=== PATIENT | female | born 1990 | race Caucasian/White ===

== ENCOUNTER 2016-12-10 01:38 | Emergency (ER) | payer SELFPAY ==
[2016-12-10 01:50] VITALS: RESP 18
--- NOTE | 2016-12-10 02:40 | ED ---
Abdominal Pain HPI - General Chief Complaint: Abdominal Pain Stated Complaint: Abdominal Pain Time Seen by Provider: 12/10/16 02:33 Source: patient, family, RN notes reviewed Mode of arrival: ambulatory Limitations: no limitations - History of Present Illness Initial Comments: Patient is a 26-year-old female presents to the emergency room for evaluation of lower pelvic pain. patient states she had an IUD placed about 9 months ago. Patient states after driving from [place] for about 7 hours she has been having increasing lower pelvic pain. Patient states she is not sure if her IUD is out of place or not. Patient denies any pain or burning during urination, trouble urinating or blood in urine. Patient denies any abnormal vaginal discharge. Patient denies painful sexual intercourse. Patient denies nausea or vomiting. Patient denies headache or dizziness. Patient denies fevers or chills. - Related Data Home Medications Medication Instructions Recorded Confirmed No Known Home Medications [No 12/10/16 12/10/16 Known Home Medications] Allergies Allergy/AdvReac Type Severity Reaction Status Date / Time No Known Allergies Allergy Verified 12/10/16 01:50 Review of Systems ROS Statement: Those systems with pertinent positive or pertinent negative responses have been documented in the HPI. ROS Other: All systems not noted in ROS Statement are negative. Past Medical History Past Medical History: No Reported History History of Any Multi-Drug Resistant Organisms: None Reported Past Surgical History: No Surgical Hx Reported Past Psychological History: Anxiety Smoking Status: Never smoker Past Alcohol Use History: Occasional Past Drug Use History: None Reported General Exam - General Exam Comments Initial Comments: Laying in exam room, no acute distress. Limitations: no limitations General appearance: alert, in no apparent distress Head exam: Present: atraumatic, normocephalic, normal inspection Eye exam: Present: normal appearance ENT exam: Present: normal exam Neck exam: Present: normal inspection Respiratory exam: Present: normal lung sounds bilaterally. Absent: respiratory distress Cardiovascular Exam: Present: regular rate, normal rhythm, normal heart sounds GI/Abdominal exam: Present: soft, normal bowel sounds. Absent: distended, tenderness, guarding, rebound, rigid Extremities exam: Present: normal inspection Back exam: Present: normal inspection Neurological exam: Present: alert, oriented X3, CN II-XII intact, normal gait Psychiatric exam: Present: normal affect, normal mood Skin exam: Present: warm, dry, intact, normal color. Absent: rash Course Vital Signs 12/10/16 12/10/16 01:46 04:40 Temperature 97.8 F 97.1 F L Pulse Rate 85 74 Respiratory 18 18 Rate Blood Pressure 131/78 118/51 O2 Sat by Pulse 98 98 Oximetry Medical Decision Making - Medical Decision Making Patient is a 26-year-old female since minutes for evaluation of lower pelvic pain. Patient worried that her IUD is out of place. Patient states she could not get into [facility] this week so that's why she came here. Ultrasound showed low-lying IUD, located with the endocervical canal. 2.2 cm right ovarian cyst. patient advised to follow-up with [facility]. Patient advised to take Tylenol or Motrin as needed for pain. Patient states she understands everything that was discussed with her. Return parameters discussed. Case discussed Dr. Mcwilliams. - Lab Data Lab Results 12/10/16 12/10/16 Range/Units 01:55 01:55 Urine Color Yellow Urine Appearance Cloudy H (Clear) Urine pH 5.5 (5.0-8.0) Ur Specific [place] 1.022 (1.001-1.035) Urine Protein Negative (Negative) Urine Glucose (UA) Negative (Negative) Urine Ketones Negative (Negative) Urine Blood Negative (Negative) Urine Nitrite Negative (Negative) Urine Bilirubin Negative (Negative) Urine Urobilinogen <2.0 (<2.0) mg/dL Ur Leukocyte Esterase Trace H (Negative) Urine RBC 1 (0-5) /hpf Urine WBC 3 (0-5) /hpf Ur Squamous Epith Cells 16 H (0-4) /hpf Urine Bacteria Rare H (None) /hpf Urine Mucus Few H (None) /hpf Urine HCG, Qual Not Detected (Not Detectd) - Radiology Data Radiology results: report reviewed, image reviewed Disposition Clinical Impression: Right ovarian cyst, IUD check up Disposition: HOME SELF-CARE Condition: Good Instructions: Ovarian Cyst (ED) Additional Instructions: Please follow-up with [facility]. Tylenol or Motrin as needed for pain. If any new symptom arises or symptoms worsen, return to ER as soon as possible. Referrals: Todd Price MD [Primary Care Provider] - 1-2 days Awais Zhong MD [STAFF PHYSICIAN] - 1-2 days Time of Disposition: 04:40
[2016-12-10 02:56] LABS: Appearance,Urine Cloudy (Clear); Bacteria,Urine Rare /hpf; Bilirubin,Urine Negative (Negative); Glucose,Urine (UA) Negative (Negative); Ketones,Urine Negative (Negative); Leukocyte Esterase,Urine Trace (Negative); Mucus,Urine Few /hpf; Nitrite,Urine Negative (Negative); PH, Urine 5.5 (5.0-8.0); Particle Count 8935; Protein,Urine Negative (Negative); RBC,Urine 1 /hpf (0-5); Specific Gravity,Urine 1.022 (1.001-1.035); Squamous Epithelial Cell,Urine 16 /hpf (0-4); UA Billing (MACRO vs. MICRO) MICRO; Urobilinogen,Urine <2.0 mg/dL (<2.0); WBC,Urine 3 /hpf (0-5)
--- NOTE | 2016-12-10 04:08 | US ---
EXAM: US Pelvis, Transvaginal CLINICAL HISTORY: Reason: Pain TECHNIQUE: Real-time transvaginal pelvic ultrasound (complete) with image documentation. Transvaginal imaging was used for better evaluation of the endometrium and adnexa. COMPARISON: 03/01/15 ultrasound. FINDINGS: Uterus/cervix: Uterus measures 9.8 x 5.6 x 4.4 cm. Endometrial stripe is uniform in appearance measuring 14 mm. Now seen is a small 3 mm right anterior mid uterine subendometrial cyst, that is nonspecific. There is a low-lying IUD, that is located within the endocervical canal. There are again cervical nabothian cysts. Right ovary: Right ovary measures 2.8 x 2.7 x 2.4 cm, contains a simple appearing 2.2 x 1.9 x 1.5 cm cyst within. No evidence of ovarian torsion. Left ovary: Left ovary was slightly less well seen, measuring 2.1 x 1. 9 x 1.4 cm and containing small follicles. No evidence of left ovarian torsion. Free fluid: No free fluid. Bladder: Empty bladder which cannot be evaluated with this probe. IMPRESSION: 1. Low-lying IUD, located within the endocervical canal. 2. Additional findings as above include simple appearing 2.2 cm right ovarian cyst, likely physiologic, and nonspecific 3 mm subendometrial cyst.
[2016-12-10 04:41] VITALS: BP 118/51; PULSE 74; TEMP 97.1
== END 2016-12-10 04:46 | disposition home or self-care (01) ==
LOC: EC 01:38
DX: N83.201 Unspecified ovarian cyst, right side (principal); Z30.8 Encounter for other contraceptive management
CPT/HCPCS: 76830; 81001; 81025; 93975; 99284

== ENCOUNTER 2018-04-18 18:01 | Emergency (ER) | payer OTHER ==
[2018-04-18 18:14] VITALS: RESP 18
--- NOTE | 2018-04-18 18:46 | ED ---
URI HPI - General Chief Complaint: Upper Respiratory Infection Stated Complaint: SOB Time Seen by Provider: 04/18/18 18:29 Source: patient, RN notes reviewed Mode of arrival: ambulatory Limitations: no limitations - History of Present Illness Initial Comments: 27-year-old female presents emergency Department chief complaint of cough congestion. Patient states she's been sick for last 3 days started with a sore throat developed nasal congestion. She denies any headache, fever, chills, neck pain. Patient states that her lungs started burning today and she felt short of breath. Patient states that she has not a smoker and has no lung disease. Patient states that she has no pain with deep inspiration. Patient states that she is some [id number] DayQuil with [place]icks states that it did help. Patient denies neck complaints. - Related Data Previous Rx's Medication Instructions Recorded Azithromycin [Zithromax Z-pack] 0 mg PO DIRECTED #1 pack 04/18/18 predniSONE 50 mg PO DAILY #5 tab 04/18/18 Allergies Allergy/AdvReac Type Severity Reaction Status Date / Time No Known Allergies Allergy Verified 04/18/18 18:14 Review of Systems ROS Statement: Those systems with pertinent positive or pertinent negative responses have been documented in the HPI. ROS Other: All systems not noted in ROS Statement are negative. Past Medical History Past Medical History: No Reported History History of Any Multi-Drug Resistant Organisms: None Reported Past Surgical History: No Surgical Hx Reported Past Psychological History: Anxiety Smoking Status: Never smoker Past Alcohol Use History: Occasional Past Drug Use History: None Reported General Exam Limitations: no limitations General appearance: alert, in no apparent distress Head exam: Present: atraumatic, normocephalic, normal inspection Eye exam: Present: normal appearance, PERRL, EOMI. Absent: scleral icterus, conjunctival injection, periorbital swelling ENT exam: Present: normal exam, mucous membranes moist. Absent: normal oropharynx (Is a drainage) Neck exam: Present: normal inspection, full ROM. Absent: tenderness, meningismus, lymphadenopathy Respiratory exam: Present: wheezes (Faint right-sided), rhonchi (Faint right). Absent: normal lung sounds bilaterally, respiratory distress, rales, stridor Cardiovascular Exam: Present: regular rate, normal rhythm, normal heart sounds. Absent: systolic murmur, diastolic murmur, rubs, gallop, clicks Neurological exam: Present: alert, oriented X3, CN II-XII intact Course Vital Signs 04/18/18 18:12 Temperature 97.8 F Pulse Rate 85 Respiratory 18 Rate Blood Pressure 126/83 O2 Sat by Pulse 99 Oximetry Medical Decision Making - Medical Decision Making 27-year-old female presented for compilations cold-like symptoms. Patient has acute bronchitis. Patient we treated with azithromycin steroids that she does have some notable wheezing. Patient we discharged return parameters were discussed. Disposition Clinical Impression: Acute bronchitis Disposition: HOME SELF-CARE Condition: Stable Instructions: Acute Bronchitis (ED) Additional Instructions: Please return to the Emergency Department if symptoms worsen or any other concerns. Prescriptions: Azithromycin [Zithromax Z-pack] 0 mg PO DIRECTED #1 pack predniSONE 50 mg PO DAILY #5 tab Is patient prescribed a controlled substance at d/c from ED?: No Referrals: None,Stated [Primary Care Provider] - 1-2 days Time of Disposition: 19:25
--- NOTE | 2018-04-18 19:22 | XR ---
EXAMINATION TYPE: XR chest 2V DATE OF EXAM: 04/18/2018 COMPARISON: Prior chest x-ray 07/11/2017 HISTORY: Cough and pain TECHNIQUE: Frontal and lateral views of the chest are obtained. FINDINGS: There is no focal air space opacity, pleural effusion, or pneumothorax seen. The cardiac silhouette size is within normal limits. The osseous structures are intact. IMPRESSION: No acute cardiopulmonary process.
[2018-04-18 19:37] VITALS: BP 130/85; PULSE 93; TEMP 97.3
== END 2018-04-18 19:37 | disposition home or self-care (01) ==
LOC: EC 18:01
DX: J20.9 Acute bronchitis, unspecified (principal); J02.9 Acute pharyngitis, unspecified
CPT/HCPCS: 71046; 99284

== ENCOUNTER 2018-08-21 11:19 | Emergency (ER) | payer OTHER ==
[2018-08-21 11:24] VITALS: RESP 18; TEMP 98.3
--- NOTE | 2018-08-21 12:00 | ED ---
Lower Extremity Injury HPI - General Chief Complaint: Extremity Injury, Lower Stated Complaint: Fall, ankle injury Time Seen by Provider: 08/21/18 11:27 Source: patient, RN notes reviewed Mode of arrival: wheelchair Limitations: no limitations - History of Present Illness Initial Comments: This is a 27-year-old female presents emergency Department with chief complaint of left foot and ankle pain. Patient states that she tripped on the last 4 steps of her stairwell. Patient states that she twisted day states she has pain in her mid foot and ankle region. No prior fractures. Denies any head injury no loss conscious. Patient has no pain proximal to her left ankle. - Related Data Previous Rx's Medication Instructions Recorded Azithromycin [Zithromax Z-pack] 0 mg PO DIRECTED #1 pack 04/18/18 predniSONE 50 mg PO DAILY #5 tab 04/18/18 Ibuprofen [Motrin] 600 mg PO Q8HR PRN #30 tab 08/21/18 Allergies Allergy/AdvReac Type Severity Reaction Status Date / Time No Known Allergies Allergy Verified 08/21/18 11:24 Review of Systems ROS Statement: Those systems with pertinent positive or pertinent negative responses have been documented in the HPI. ROS Other: All systems not noted in ROS Statement are negative. Past Medical History Past Medical History: No Reported History History of Any Multi-Drug Resistant Organisms: None Reported Past Surgical History: No Surgical Hx Reported Past Psychological History: Anxiety Smoking Status: Never smoker Past Alcohol Use History: Occasional Past Drug Use History: None Reported General Exam Limitations: no limitations General appearance: alert, in no apparent distress Head exam: Present: atraumatic, normocephalic, normal inspection Respiratory exam: Present: normal lung sounds bilaterally. Absent: respiratory distress, wheezes, rales, rhonchi, stridor Cardiovascular Exam: Present: regular rate, normal rhythm, normal heart sounds. Absent: systolic murmur, diastolic murmur, rubs, gallop, clicks Extremities exam: Present: other (Left ankle there is tenderness to the medial and lateral aspect, tenderness the mid foot, neurovascular intact no proximal tib-fib tenderness) Skin exam: Present: warm, dry, intact, normal color. Absent: rash Course Vital Signs 08/21/18 11:22 Temperature 98.3 F Pulse Rate 88 Respiratory 18 Rate O2 Sat by Pulse 94 L Oximetry Medical Decision Making - Medical Decision Making 27-year-old female presented for left ankle foot injury. X-rays are negative for acute fracture. Patient has a left foot and ankle sprain. Patient will be Brijesh wrap, conservative treatment. Patient follow-up with orthopedics as needed. Disposition Clinical Impression: Left ankle sprain, Sprain of left foot Disposition: HOME SELF-CARE Condition: Stable Instructions (If sedation given, give patient instructions): Foot Sprain (ED), Ankle Sprain (ED) Additional Instructions: Please return to the Emergency Department if symptoms worsen or any other concerns. Prescriptions: Ibuprofen [Motrin] 600 mg PO Q8HR PRN #30 tab PRN Reason: Pain Is patient prescribed a controlled substance at d/c from ED?: No Referrals: Ebonie Marc DO [Primary Care Provider] - 1-2 days Time of Disposition: 13:07
--- NOTE | 2018-08-21 12:32 | XR ---
Left ankle and left foot HISTORY: Trauma and pain 3 views of the left foot and 3 views of the left ankle Mild soft tissue swelling is noted. Alignment, joint spaces, bone mineralization are normal. IMPRESSION: No fracture or dislocation.
[2018-08-21 13:25] VITALS: PULSE 66
== END 2018-08-21 13:25 | disposition home or self-care (01) ==
LOC: EC 11:19
DX: S93.402A Sprain of unspecified ligament of left ankle, initial encounter (principal); S93.602A Unspecified sprain of left foot, initial encounter; W10.9XXA Fall (on) (from) unspecified stairs and steps, initial encounter; Y92.009 Unspecified place in unspecified non-institutional (private) residence as the place of occurrence of the external cause
CPT/HCPCS: 99283

== ENCOUNTER 2018-10-05 08:40 | Emergency (ER) | payer OTHER ==
[2018-10-05 08:47] VITALS: BP 110/74; PULSE 99; RESP 18; TEMP 98.4
--- NOTE | 2018-10-05 09:21 | ED ---
Abdominal Pain HPI - General Chief Complaint: Abdominal Pain Stated Complaint: poss ectopic Time Seen by Provider: 10/05/18 08:48 Source: patient, family, RN notes reviewed Limitations: no limitations - History of Present Illness Initial Comments: 28-year-old female presents emergency Department with chief complaint of possible ectopic . Patient states she felt nauseous on Wednesday states that she's had some increasing abdominal pain on left side. Patient is A0 and states that she is scheduled with her [facility] for an appointment. Patient states that she found out she was at [facility] with an hCG of 875. Patient does have an IUD in place only felt that it was displaced. Patient states her [facility] office call her and felt that in her best interest that she should be re-seen here and have repeat labs and ultrasound. Patient denies any nausea vomiting diarrhea constipation no dysuria no hematuria. Denies any vaginal bleeding at this time. - Related Data Allergies Allergy/AdvReac Type Severity Reaction Status Date / Time No Known Allergies Allergy Verified 10/05/18 09:07 Review of Systems ROS Statement: Those systems with pertinent positive or pertinent negative responses have been documented in the HPI. ROS Other: All systems not noted in ROS Statement are negative. Past Medical History Past Medical History: No Reported History History of Any Multi-Drug Resistant Organisms: None Reported Past Surgical History: No Surgical Hx Reported Past Psychological History: Anxiety Smoking Status: Never smoker Past Alcohol Use History: Occasional Past Drug Use History: None Reported General Exam Limitations: no limitations General appearance: alert, in no apparent distress Head exam: Present: atraumatic, normocephalic, normal inspection Eye exam: Present: normal appearance, PERRL, EOMI. Absent: scleral icterus, conjunctival injection, periorbital swelling ENT exam: Present: normal exam, normal oropharynx, mucous membranes moist Neck exam: Present: normal inspection, full ROM. Absent: tenderness, meningismus, lymphadenopathy Respiratory exam: Present: normal lung sounds bilaterally. Absent: respiratory distress, wheezes, rales, rhonchi, stridor Cardiovascular Exam: Present: regular rate, normal rhythm, normal heart sounds. Absent: systolic murmur, diastolic murmur, rubs, gallop, clicks GI/Abdominal exam: Present: soft, tenderness (Mild left-sided), normal bowel sounds. Absent: distended, guarding, rebound, rigid Back exam: Absent: CVA tenderness (R), CVA tenderness (L) Course Vital Signs 10/05/18 08:43 Temperature 98.4 F Pulse Rate 99 Respiratory 18 Rate Blood Pressure 110/74 O2 Sat by Pulse 97 Oximetry Medical Decision Making - Medical Decision Making 28-year-old female presents emergency department for abdominal pain possible ectopic . Patient had repeat ultrasound, quadrant. PICC line has gone to over 2100. Ultrasound shows possible early and which is a fluid-filled sac. Patient is advised to follow-up with the [facility] as she is scheduled an appointment there next 1-2 days because she has an IUD in place. We did contact office stating that she needs to be seen. - Lab Data Result diagrams: 10/05/18 09:25 10/05/18 09:25 Lab Results 10/05/18 10/05/18 10/05/18 Range/Units 09:25 09:25 09:25 WBC 5.2 (3.8-10.6) k/uL RBC 4.86 (3.80-5.40) m/uL Hgb 13.1 (11.4-16.0) gm/dL Hct 40.4 (34.0-46.0) % MCV 83.1 (80.0-100.0) fL MCH 27.0 (25.0-35.0) pg MCHC 32.4 (31.0-37.0) g/dL RDW 14.8 (11.5-15.5) % Plt Count 205 (150-450) k/uL Neutrophils % 65 % Lymphocytes % 24 % Monocytes % 6 % Eosinophils % 3 % Basophils % 1 % Neutrophils # 3.4 (1.3-7.7) k/uL Lymphocytes # 1.3 (1.0-4.8) k/uL Monocytes # 0.3 (0-1.0) k/uL Eosinophils # 0.2 (0-0.7) k/uL Basophils # 0.0 (0-0.2) k/uL Sodium 138 (137-145) mmol/L Potassium 4.8 (3.5-5.1) mmol/L Chloride 107 (98-107) mmol/L Carbon Dioxide 24 (22-30) mmol/L Anion Gap 7 mmol/L BUN 14 (7-17) mg/dL Creatinine 0.59 (0.52-1.04) mg/dL Est GFR (CKD-EPI)AfAm >90 (>60 ml/min/1.73 sqM) Est GFR (CKD-EPI)NonAf >90 (>60 ml/min/1.73 sqM) Glucose 94 (74-99) mg/dL Calcium 9.2 (8.4-10.2) mg/dL HCG, Quant 2116.0 mIU/mL Blood Type O Positive Blood Type Recheck No Disposition Clinical Impression: Abdominal pain in Disposition: HOME SELF-CARE Condition: Stable Instructions (If sedation given, give patient instructions): Abdominal Pain in (ED) Additional Instructions: Please return to the Emergency Department if symptoms worsen or any other concerns. Is patient prescribed a controlled substance at d/c from ED?: No Referrals: Ebonie Marc DO [Primary Care Provider] - 1-2 days Time of Disposition: 11:17
[2018-10-05 09:48] LABS: Basophils % (A) 1 %; Eosinophils # (A) 0.2 k/uL (0-0.7); Eosinophils % (A) 3 %; HCT 40.4 % (34.0-46.0); HGB 13.1 gm/dL (11.4-16.0); Lymphocytes # (A) 1.3 k/uL (1.0-4.8); Lymphocytes % (A) 24 %; MCHC 32.4 g/dL (31.0-37.0); MCV 83.1 fL (80.0-100.0); Mean Platelet Volume 7.8; Monocytes # (A) 0.3 k/uL (0-1.0); Monocytes % (A) 6 %; Neutrophils # (A) 3.4 k/uL (1.3-7.7); Neutrophils % (A) 65 %; Platelet Count 205 k/uL (150-450); RBC 4.86 m/uL (3.80-5.40); RDW 14.8 % (11.5-15.5); WBC 5.2 k/uL (3.8-10.6)
[2018-10-05 10:02] LABS: Anion Gap 7 mmol/L; Blood Urea Nitrogen 14 mg/dL (7-17); Calcium 9.2 mg/dL (8.4-10.2); Carbon Dioxide 24 mmol/L (22-30); Chloride 107 mmol/L (98-107); Glucose 94 mg/dL (74-99); Sodium 138 mmol/L (137-145)
[2018-10-05 10:08] LABS: Potassium 4.8 mmol/L (3.5-5.1)
--- NOTE | 2018-10-05 10:59 | US ---
EXAMINATION TYPE: Transabdominal DATE OF EXAM: 10/05/2018 10:02 AM COMPARISON: NONE CLINICAL HISTORY: Pain. Left pelvic pain 1 to 2 weeks, patient has IUD, 3, para 2 EXAM PERFORMED: Transvaginal (TV) and Transabdominal (TA) EXAM MEASUREMENTS: GESTATIONAL AGE / DATING Physician Established: Not established yet Dates by LMP: (4 weeks/0 days) EDC: 06/14/2018 Dates by First Scan: No previous here Dates by Current Scan for: Possible gestational sac seen MATERNAL ANATOMY Uterus: 9.2 x 5.5 x 6.7cm, IUD seen within cervix Right Ovary: not seen Left Ovary: not seen Post CDS / Adnexa: small amount of free fluid in posterior cul de sac Presence of free fluid: yes Presence of corpus luteal cyst: not seen Presence of subchorionic bleed: no GESTATION / SURVEY No pole or yolk sac seen MSD: 0.5cm Too small, measurement out of range Date of LMP: 09/07/2018 Beta HcG (if available): Not available at time of exam IMPRESSION: 1. Fluid-filled sac within the endometrium is too small to characterize. There is a small amount of f ree fluid in the pelvis. Ovaries are not seen. Differential diagnosis for this small fluid-filled sac includes endometrial cyst, normal to o early to and pseudogestational sac of ectopic . Correlate with serial beta hCG and ultraso und as clinically warranted. 2. Intrauterine device is seen within the cervix and should be correlated for proper positioning.
== END 2018-10-05 12:15 | disposition home or self-care (01) ==
LOC: EC 08:40
DX: O99.89 Other specified diseases and conditions complicating pregnancy, childbirth and the puerperium (principal); R10.9 Unspecified abdominal pain; R11.0 Nausea; Z3A.01 Less than 8 weeks gestation of pregnancy
CPT/HCPCS: 36415; 76801; 76817; 80048; 84702; 85025; 86900; 86901; 99284

== ENCOUNTER 2018-10-17 18:50 | Emergency (ER) | payer OTHER ==
[2018-10-17 18:54] VITALS: TEMP 97.9
[2018-10-17] MEDS ORDERED: SODIUM CHLORIDE 0.9% 1,000 ML IV ONE (19:06)
--- NOTE | 2018-10-17 19:13 | ED ---
Female Urogenital HPI - General Chief complaint: Vaginal Bleeding Stated complaint: 5 WEEKS PREG AND SPOTTING Time Seen by Provider: 10/17/18 18:55 Source: patient Mode of arrival: ambulatory Limitations: no limitations - History of Present Illness Initial comments: 28-year-old female patient presents to the emergency department today for evaluation of spotting and pelvic cramping. Patient states she is approximately 4 weeks . Patient did have her IUD removed 1 week ago. Patient states that she's been having intermittent spotting for the last couple of days. Patient states that she began to have intense sharp stabbing pain to the left p elvic region earlier today. Patient states this persisted throughout the day so she presented here for further evaluation. Patient is . Denies ever having a program with her previous pregnancies. She denies any hematuria, dysuria, urinary urgency, urinary frequency. Denies any diarrhea or constipation. Denies any fever or chills with this. Patient denies any recent rash, shortness breath, chest pain, nausea, vomiting, back pain, numbness, tingling, dizziness, weakness, headache, visual changes, or any other complaints. Last Menstrual Period: 09/07/18 - Related Data Home Medications Medication Instructions Recorded Confirmed Uvk-Cvgc-Fsaku Acid 1 cap PO DAILY 10/17/18 10/17/18 [-U Capsule (formulary)] Allergies Allergy/AdvReac Type Severity Reaction Status Date / Time No Known Allergies Allergy Verified 10/17/18 19:33 Review of Systems ROS Statement: Those systems with pertinent positive or pertinent negative responses have been documented in the HPI. ROS Other: All systems not noted in ROS Statement are negative. Past Medical History Past Medical History: No Reported History History of Any Multi-Drug Resistant Organisms: None Reported Past Surgical History: No Surgical Hx Reported Past Psychological History: Anxiety Smoking Status: Never smoker Past Alcohol Use History: Occasional Past Drug Use History: None Reported General Exam Limitations: no limitations General appearance: alert, in no apparent distress, other (Physical well- developed, well-nourished adult female patient in no acute distress. Vital signs upon presentation are temperature 97.9F, pulse 85, pulse 85, respirations 20, blood pressure 124/73, pulse ox 98% on room air.) Eye exam: Present: normal appearance, PERRL, EOMI. Absent: scleral icterus, conjunctival injection, periorbital swelling ENT exam: Present: normal exam, normal oropharynx, mucous membranes moist Respiratory exam: Present: normal lung sounds bilaterally. Absent: respiratory distress, wheezes, rales, rhonchi, stridor Cardiovascular Exam: Present: regular rate, normal rhythm, normal heart sounds. Absent: systolic murmur, diastolic murmur, rubs, gallop, clicks GI/Abdominal exam: Present: soft, normal bowel sounds. Absent: distended, tenderness, guarding, rebound, rigid External exam: Present: normal external exam Speculum exam: Present: cervical discharge, other (Cervical os is closed). Absent: vaginal bleeding By manual exam: Present: normal by manual exam Neurological exam: Present: alert, oriented X3, CN II-XII intact Psychiatric exam: Present: normal affect, normal mood Skin exam: Present: warm, dry, intact, normal color. Absent: rash Course Vital Signs 10/17/18 10/17/18 10/17/18 18:51 20:54 22:00 Temperature 97.9 F 97.9 F Pulse Rate 85 80 Respiratory 20 16 16 Rate Blood Pressure 124/73 121/65 O2 Sat by Pulse 98 98 Oximetry Medical Decision Making - Medical Decision Making 28-year-old female patient percents emergency department today for evaluation of spotting and pelvic cramping. Patient reports being approximately 4-5 weeks . Patient states she is having some intermittent spotting for the last couple of days. Started having cramping today. Physical examination did reveal some mild left lower quadrant tenderness. Labs reviewed and are unremarkable. Urinalysis is negative for infection. Patient is O+. Ultrasound did show a viable intrauterine measuring 6 weeks 3 days with a heart rate of 121. I did discuss findings and results with the patient. She'll be discharged follow-up with [facility] for recheck as soon as possible. Return parameters were discussed in detail. She verbalizes understanding and agrees this plan. - Lab Data Result diagrams: 10/17/18 19:30 10/17/18 19:30 Lab Results 10/17/18 10/17/18 10/17/18 Range/Units 19:30 19:30 19:30 WBC 8.4 (3.8-10.6) k/uL RBC 4.96 (3.80-5.40) m/uL Hgb 13.5 (11.4-16.0) gm/dL Hct 41.2 (34.0-46.0) % MCV 83.1 (80.0-100.0) fL MCH 27.3 (25.0-35.0) pg MCHC 32.9 (31.0-37.0) g/dL RDW 14.8 (11.5-15.5) % Plt Count 217 (150-450) k/uL Neutrophils % 74 % Lymphocytes % 18 % Monocytes % 4 % Eosinophils % 3 % Basophils % 0 % Neutrophils # 6.2 (1.3-7.7) k/uL Lymphocytes # 1.5 (1.0-4.8) k/uL Monocytes # 0.3 (0-1.0) k/uL Eosinophils # 0.3 (0-0.7) k/uL Basophils # 0.0 (0-0.2) k/uL PT 9.4 (9.0-12.0) sec INR 0.9 (<1.2) APTT 25.4 (22.0-30.0) sec Sodium 138 (137-145) mmol/L Potassium 5.5 H (3.5-5.1) mmol/L Chloride 105 (98-107) mmol/L Carbon Dioxide 22 (22-30) mmol/L Anion Gap 11 mmol/L BUN 10 (7-17) mg/dL Creatinine 0.52 (0.52-1.04) mg/dL Est GFR (CKD-EPI)AfAm >90 (>60 ml/min/1.73 sqM) Est GFR (CKD-EPI)NonAf >90 (>60 ml/min/1.73 sqM) Glucose 86 (74-99) mg/dL Calcium 9.9 (8.4-10.2) mg/dL Total Bilirubin 0.6 (0.2-1.3) mg/dL AST 37 H (14-36) U/L ALT 13 (9-52) U/L Alkaline Phosphatase 48 (38-126) U/L Total Protein 7.5 (6.3-8.2) g/dL Albumin 4.6 (3.5-5.0) g/dL HCG, Quant 83526.5 mIU/mL Urine Color Urine Appearance (Clear) Urine pH (5.0-8.0) Ur Specific [place] (1.001-1.035) Urine Protein (Negative) Urine Glucose (UA) (Negative) Urine Ketones (Negative) Urine Blood (Negative) Urine Nitrite (Negative) Urine Bilirubin (Negative) Urine Urobilinogen (<2.0) mg/dL Ur Leukocyte Esterase (Negative) Urine RBC (0-5) /hpf Urine WBC (0-5) /hpf Ur Squamous Epith Cells (0-4) /hpf Urine Mucus (None) /hpf 10/17/18 Range/Units 19:30 WBC (3.8-10.6) k/uL RBC (3.80-5.40) m/uL Hgb (11.4-16.0) gm/dL Hct (34.0-46.0) % MCV (80.0-100.0) fL MCH (25.0-35.0) pg MCHC (31.0-37.0) g/dL RDW (11.5-15.5) % Plt Count (150-450) k/uL Neutrophils % % Lymphocytes % % Monocytes % % Eosinophils % % Basophils % % Neutrophils # (1.3-7.7) k/uL Lymphocytes # (1.0-4.8) k/uL Monocytes # (0-1.0) k/uL Eosinophils # (0-0.7) k/uL Basophils # (0-0.2) k/uL PT (9.0-12.0) sec INR (<1.2) APTT (22.0-30.0) sec Sodium (137-145) mmol/L Potassium (3.5-5.1) mmol/L Chloride (98-107) mmol/L Carbon Dioxide (22-30) mmol/L Anion Gap mmol/L BUN (7-17) mg/dL Creatinine (0.52-1.04) mg/dL Est GFR (CKD-EPI)AfAm (>60 ml/min/1.73 sqM) Est GFR (CKD-EPI)NonAf (>60 ml/min/1.73 sqM) Glucose (74-99) mg/dL Calcium (8.4-10.2) mg/dL Total Bilirubin (0.2-1.3) mg/dL AST (14-36) U/L ALT (9-52) U/L Alkaline Phosphatase (38-126) U/L Total Protein (6.3-8.2) g/dL Albumin (3.5-5.0) g/dL HCG, Quant mIU/mL Urine Color Yellow Urine Appearance Clear (Clear) Urine pH 5.5 (5.0-8.0) Ur Specific [place] 1.014 (1.001-1.035) Urine Protein Negative (Negative) Urine Glucose (UA) Negative (Negative) Urine Ketones Negative (Negative) Urine Blood Negative (Negative) Urine Nitrite Negative (Negative) Urine Bilirubin Negative (Negative) Urine Urobilinogen <2.0 (<2.0) mg/dL Ur Leukocyte Esterase Small H (Negative) Urine RBC 5 (0-5) /hpf Urine WBC 2 (0-5) /hpf Ur Squamous Epith Cells 3 (0-4) /hpf Urine Mucus Few H (None) /hpf - Radiology Data Radiology results: report reviewed Pelvic ultrasound was obtained. Report was reviewed in its entirety. Impression by Dr. Ford shows viable intrauterine with no complicating process. heart rate is 121. Current scan is measuring 6 weeks 3 days. Disposition Clinical Impression: Bleeding in early Disposition: HOME SELF-CARE Condition: Good Instructions (If sedation given, give patient instructions): First Trimester Vaginal Bleed (ED) Additional Instructions: Increase fluids. Follow-up with your [facility] for recheck this as possible. Return to the emergency department immediately for any new, worsening, or concerning symptoms. Some medications you may try are [id number] that are safe in : Nasal Saline (for nasal congestion) Afrin (for nasal congestion) (No longer than three days) Cough drops and lozenges (For sore throat) Tylenol (For pain and fever) Robitussin (for cough) Increase fluids. Get adequate rest. Is patient prescribed a controlled substance at d/c from ED?: No Referrals: Ebonie Marc DO [Primary Care Provider] - 1-2 days Cricket Barrios DO [Doctor of Osteopathic Medicine] - 1-2 days Time of Disposition: 21:42
[2018-10-17 20:09] LABS: Basophils % (A) 0 %; Eosinophils # (A) 0.3 k/uL (0-0.7); Eosinophils % (A) 3 %; HCT 41.2 % (34.0-46.0); HGB 13.5 gm/dL (11.4-16.0); Lymphocytes # (A) 1.5 k/uL (1.0-4.8); Lymphocytes % (A) 18 %; MCH 27.3 pg (25.0-35.0); MCHC 32.9 g/dL (31.0-37.0); MCV 83.1 fL (80.0-100.0); Mean Platelet Volume 7.9; Monocytes # (A) 0.3 k/uL (0-1.0); Monocytes % (A) 4 %; Neutrophils # (A) 6.2 k/uL (1.3-7.7); Neutrophils % (A) 74 %; Platelet Count 217 k/uL (150-450); RBC 4.96 m/uL (3.80-5.40); RDW 14.8 % (11.5-15.5); WBC 8.4 k/uL (3.8-10.6)
[2018-10-17 20:11] LABS: Appearance,Urine Clear (Clear); Bilirubin,Urine Negative (Negative); Blood,Urine Negative (Negative); Color,Urine Yellow; Glucose,Urine (UA) Negative (Negative); Ketones,Urine Negative (Negative); Leukocyte Esterase,Urine Small (Negative); Mucus,Urine Few /hpf; Nitrite,Urine Negative (Negative); PH, Urine 5.5 (5.0-8.0); Protein,Urine Negative (Negative); RBC,Urine 5 /hpf (0-5); Specific Gravity,Urine 1.014 (1.001-1.035); Squamous Epithelial Cell,Urine 3 /hpf (0-4); Urobilinogen,Urine <2.0 mg/dL (<2.0); WBC,Urine 2 /hpf (0-5)
[2018-10-17 20:17] LABS: INR 0.9 (<1.2); Partial Thromboplastin Time 25.4 sec (22.0-30.0); Prothrombin Time 9.4 sec (9.0-12.0)
--- NOTE | 2018-10-17 20:45 | US ---
EXAMINATION TYPE: Transabdominal DATE OF EXAM: 10/17/2018 8:19 PM COMPARISON: NONE CLINICAL HISTORY: Pain. Cramping and spotting. Patient got with IUD in was just removed 1 we ek ago. EXAM PERFORMED: Transvaginal (TV) and Transabdominal (TA) EXAM MEASUREMENTS: GESTATIONAL AGE / DATING Physician Established: Not yet established Dates by LMP: (5 weeks/5 days) EDC: 06/14/2019 Dates by Current Scan for: (6 weeks/3 days) EDC: 06/09/2018 MATERNAL ANATOMY Uterus: 11.0 x 5.8 x 7.5 cm Right Ovary: 2.9 x 2.8 x 2.5 cm Post CDS / Adnexa: wnl Presence of free fluid: no Presence of corpus luteal cyst: Yes right 1.6 x 1.5 x 1.4 cm. Presence of subchorionic bleed: no GESTATION / SURVEY CRL: 0.58cm (6 weeks/3 days) Yolk Sac (normal less than 6mm): 2mm Heart Rate: 121 bpm Rhythm: Normal IUP: Viable IUP Beta HcG (if available): Not available at this time IMPRESSION: No complicating process seen.
[2018-10-17 20:52] LABS: ALT 13 U/L (9-52); AST 37 U/L (14-36); Albumin 4.6 g/dL (3.5-5.0); Alkaline Phosphatase 48 U/L (38-126); Anion Gap 11 mmol/L; Blood Urea Nitrogen 10 mg/dL (7-17); Calcium 9.9 mg/dL (8.4-10.2); Carbon Dioxide 22 mmol/L (22-30); Chloride 105 mmol/L (98-107); Glucose 86 mg/dL (74-99); Sodium 138 mmol/L (137-145); Total Bilirubin 0.6 mg/dL (0.2-1.3); Total Protein 7.5 g/dL (6.3-8.2)
[2018-10-17 20:54] LABS: Potassium 5.5 mmol/L (3.5-5.1)
[2018-10-17 21:12] LABS: HCG,Quantitative Serum 66621.5 mIU/mL
[2018-10-17] MEDS ORDERED: PYRIDOXINE 100 MG/ML 1 ML VIAL IVP STA (21:38)
[2018-10-17 22:00] VITALS: RESP 16
[2018-10-17 22:01] VITALS: BP 121/65; PULSE 80
== END 2018-10-17 22:00 | disposition home or self-care (01) ==
LOC: EC 18:50
DX: O20.9 Hemorrhage in early pregnancy, unspecified (principal); Z3A.01 Less than 8 weeks gestation of pregnancy
CPT/HCPCS: 36415; 80053; 85025; 85610; 85730; 81001; 84702; 76801; 76817; 99284; 96374; 96361; J3415

== ENCOUNTER → 2018-10-24 | Outpatient (CLI) | payer OTHER ==
--- NOTE | 2018-10-25 07:24 | US ---
EXAMINATION TYPE: Transabdominal DATE OF EXAM: 10/24/2018 4:07 PM COMPARISON: US CLINICAL HISTORY: [id number] Confirm dates; EXAM PERFORMED: Transabdominal (TA) EXAM MEASUREMENTS: GESTATIONAL AGE / DATING Physician Established: Not yet established Dates by LMP: (6 weeks/5 days) EDC: 06/14/2019 Dates by First Scan: ( 7 weeks/ 3 days) EDC: 06/09/2019 Dates by Current Scan for: (8 weeks/0 days) EDC: 06/05/2019 MATERNAL ANATOMY Uterus: 12.1x 7.1 x 6.1cm Right Ovary: not seen Left Ovary: 3.9 x 2.2 x 1.6cm Post CDS / Adnexa: wnl Presence of free fluid: no Presence of corpus luteal cyst: not identified by TA US Presence of subchorionic bleed: hypoechoic area at upper subchorionic region = 2.6 x 1.6 x 0.6cm GESTATION / SURVEY CRL: 1.5cm (8 weeks/0 days) Yolk Sac (normal less than 6mm): 4.0mm Heart Rate: 156 bpm Rhythm: Normal IUP: single Date of LMP: 09/07/2018 Beta HcG (if available): NA Single, live IUP, 8 weeks/0 days, EDC: 06/05/2019, HR 156bpm, presence of subchorionic bleed: hypoech oic area at upper subchorionic region = 2.6 x 1.6 x 0.6cm. IMPRESSION: Single live intrauterine with a sonographic age of 8 weeks and 0 days and estimated date of delivery of 06/05/2019, slightly discordant with menstrual age. Additionally there is a subchorionic hemorrhage measures up to 2.6 cm. This was not seen on the prior exam of 10/17/2018.
== END ==
LOC: RADUSWWP 15:46
PROVIDERS: ATTEND Obstetrics & Gynecology
DX: O20.9 Hemorrhage in early pregnancy, unspecified (principal); Z3A.08 8 weeks gestation of pregnancy
CPT/HCPCS: 76801

== ENCOUNTER 2018-11-19 22:41 | Emergency (ER) | payer OTHER ==
[2018-11-19] MEDS ORDERED: SODIUM CHLORIDE 0.9% 1,000 ML IV ONE (23:51)
[2018-11-19] MEDS ORDERED: SODIUM CHLORIDE 0.9% 500 ML 500 ML IV ONE (23:51)
--- NOTE | 2018-11-19 23:54 | ED ---
Abdominal Pain HPI - General Chief Complaint: Abdominal Pain Stated Complaint: Cramping/Back Pain 10wks Preg Time Seen by Provider: 11/19/18 23:02 Source: patient Mode of arrival: ambulatory Limitations: no limitations - History of Present Illness Initial Comments: 28-year-old female presenting today for chief complaint of lower mid abdominal cramping. Patient is approximately 10 weeks . Has had ultrasound confirmed IUP. Patient is . She states that for the past 2 days she has had the cramping that radiates towards her back. Patient denies any vaginal bleeding. Patient denies it being the lateral. Patient states she does have es tablished [facility] T[employer] SHOW HOST Dr. Lou. She states her next appointment is on November 23. Patient states she also suffers from morning sickness throughout her she states she has had nausea and vomiting ongoing for the past 2-3 days increased from her baseline. She states that she has not been able to tolerate very much oral intake is concerned about dehydration. Patient states she has had congestion, sinus pressure denies any difficulty breathing, sputum production, fevers. Remaining ROS (-) Upon arrival pt afebrile, well appears well no signs of acute distress, - Related Data Home Medications Medication Instructions Recorded Confirmed Ynk-Vrhk-Feosa Acid 1 cap PO DAILY 10/17/18 11/19/18 [-U Capsule (formulary)] Allergies Allergy/AdvReac Type Severity Reaction Status Date / Time No Known Allergies Allergy Verified 11/19/18 23:00 Review of Systems ROS Statement: Those systems with pertinent positive or pertinent negative responses have been documented in the HPI. ROS Other: All systems not noted in ROS Statement are negative. Past Medical History Past Medical History: No Reported History History of Any Multi-Drug Resistant Organisms: None Reported Past Surgical History: No Surgical Hx Reported Past Psychological History: Anxiety Smoking Status: Never smoker Past Alcohol Use History: Rare Past Drug Use History: None Reported General Exam - General Exam Comments Initial Comments: General: The patient is awake and alert, in no distress, and does not appear acutely ill. Eye: Pupils are equal, round and reactive to light, extra-ocular movements are intact. No nystagmus. There is normal conjunctiva bilaterally. No signs of icterus. Ears, nose, mouth and throat: There are moist mucous membranes and no oral lesions. Neck: The neck is supple, there is no tenderness or JVD. Cardiovascular: There is a regular rate and rhythm. No murmur, rub or gallop is appreciated. Respiratory: Lungs are clear to auscultation, respirations are non-labored, breath sounds are equal. No wheezes, stridor, rales, or rhonchi. Gastrointestinal: Soft, non-distended, non-tender abdomen without masses or organomegaly noted. There is no rebound or guarding present. Musculoskeletal: Normal ROM, no tenderness. Strength 5/5. Sensation intact. Pulses equal bilaterally 2+. Neurological: A&O x 3. CN II-XII intact, There are no obvious motor or sensory deficits. Coordination appears grossly intact. Speech is normal. Skin: Skin is warm and dry and no rashes or lesions are noted. Psychiatric: Cooperative, appropriate mood & affect, normal judgment. Limitations: no limitations Course Vital Signs 11/19/18 11/20/18 22:57 01:20 Temperature 98.8 F 98.0 F Pulse Rate 98 84 Respiratory 17 18 Rate Blood Pressure 103/71 111/64 O2 Sat by Pulse 98 99 Oximetry Medical Decision Making - Medical Decision Making 28-year-old female 10 weeks [place] presented today for chief complaint of pelvic cramping and . She states the past 2 days she has had abdominal cramping. She states she has had nausea and vomiting. Patient had +3 ketones on urinalysis. Provided a liter and half of IV fluids. Ultrasound was obtained revealing no uncomplicated intrauterine . Heart rate 162. Patient states that her symptoms have subsided. She refuses pelvic examination. O+. No complaints of bleeding. Patient requesting discharge. At this time feel patient is stable for discharge with outpatient [facility] follow-up as scheduled. - Lab Data Result diagrams: 11/19/18 23:45 11/19/18 23:45 Lab Results 11/19/18 11/19/18 11/19/18 Range/Units 23:01 23:45 23:45 WBC 8.9 (3.8-10.6) k/uL RBC 4.74 (3.80-5.40) m/uL Hgb 12.9 (11.4-16.0) gm/dL Hct 39.1 (34.0-46.0) % MCV 82.4 (80.0-100.0) fL MCH 27.1 (25.0-35.0) pg MCHC 32.9 (31.0-37.0) g/dL RDW 14.7 (11.5-15.5) % Plt Count 182 (150-450) k/uL Neutrophils % 81 % Lymphocytes % 10 % Monocytes % 5 % Eosinophils % 3 % Basophils % 0 % Neutrophils # 7.1 (1.3-7.7) k/uL Lymphocytes # 0.9 L (1.0-4.8) k/uL Monocytes # 0.4 (0-1.0) k/uL Eosinophils # 0.2 (0-0.7) k/uL Basophils # 0.0 (0-0.2) k/uL Sodium (137-145) mmol/L Potassium (3.5-5.1) mmol/L Chloride (98-107) mmol/L Carbon Dioxide (22-30) mmol/L Anion Gap mmol/L BUN (7-17) mg/dL Creatinine (0.52-1.04) mg/dL Est GFR (CKD-EPI)AfAm (>60 ml/min/1.73 sqM) Est GFR (CKD-EPI)NonAf (>60 ml/min/1.73 sqM) Glucose (74-99) mg/dL Calcium (8.4-10.2) mg/dL Total Bilirubin (0.2-1.3) mg/dL AST (14-36) U/L ALT (9-52) U/L Alkaline Phosphatase (38-126) U/L Total Protein (6.3-8.2) g/dL Albumin (3.5-5.0) g/dL HCG, Quant mIU/mL Urine Color Yellow Urine Appearance Clear (Clear) Urine pH 5.5 (5.0-8.0) Ur Specific [place] 1.018 (1.001-1.035) Urine Protein Trace H (Negative) Urine Glucose (UA) Negative (Negative) Urine Ketones 3+ H (Negative) Urine Blood Negative (Negative) Urine Nitrite Negative (Negative) Urine Bilirubin Negative (Negative) Urine Urobilinogen <2.0 (<2.0) mg/dL Ur Leukocyte Esterase Negative (Negative) Blood Type O Positive Blood Type Recheck No 11/19/18 Range/Units 23:45 WBC (3.8-10.6) k/uL RBC (3.80-5.40) m/uL Hgb (11.4-16.0) gm/dL Hct (34.0-46.0) % MCV (80.0-100.0) fL MCH (25.0-35.0) pg MCHC (31.0-37.0) g/dL RDW (11.5-15.5) % Plt Count (150-450) k/uL Neutrophils % % Lymphocytes % % Monocytes % % Eosinophils % % Basophils % % Neutrophils # (1.3-7.7) k/uL Lymphocytes # (1.0-4.8) k/uL Monocytes # (0-1.0) k/uL Eosinophils # (0-0.7) k/uL Basophils # (0-0.2) k/uL Sodium 136 L (137-145) mmol/L Potassium 3.7 (3.5-5.1) mmol/L Chloride 102 (98-107) mmol/L Carbon Dioxide 25 (22-30) mmol/L Anion Gap 9 mmol/L BUN 5 L (7-17) mg/dL Creatinine 0.48 L (0.52-1.04) mg/dL Est GFR (CKD-EPI)AfAm >90 (>60 ml/min/1.73 sqM) Est GFR (CKD-EPI)NonAf >90 (>60 ml/min/1.73 sqM) Glucose 108 H (74-99) mg/dL Calcium 9.4 (8.4-10.2) mg/dL Total Bilirubin 0.3 (0.2-1.3) mg/dL AST 12 L (14-36) U/L ALT 12 (9-52) U/L Alkaline Phosphatase 50 (38-126) U/L Total Protein 6.9 (6.3-8.2) g/dL Albumin 4.3 (3.5-5.0) g/dL HCG, Quant 92262.8 mIU/mL Urine Color Urine Appearance (Clear) Urine pH (5.0-8.0) Ur Specific [place] (1.001-1.035) Urine Protein (Negative) Urine Glucose (UA) (Negative) Urine Ketones (Negative) Urine Blood (Negative) Urine Nitrite (Negative) Urine Bilirubin (Negative) Urine Urobilinogen (<2.0) mg/dL Ur Leukocyte Esterase (Negative) Blood Type Blood Type Recheck Disposition Clinical Impression: Cramping affecting , antepartum Disposition: HOME SELF-CARE Condition: Good Instructions (If sedation given, give patient instructions): Abdominal Pain in (ED) Additional Instructions: Please use medication as discussed. Please follow-up with OBGYN as scheduled. Please return to emergency room if the symptoms increase or worsen or for any other concerns. Is patient prescribed a controlled substance at d/c from ED?: No Referrals: Ebonie Marc DO [Primary Care Provider] - 1-2 days Time of Disposition: 01:59
[2018-11-20 00:04] LABS: Appearance,Urine Clear (Clear); Bilirubin,Urine Negative (Negative); Blood,Urine Negative (Negative); Color,Urine Yellow; Glucose,Urine (UA) Negative (Negative); Ketones,Urine 3+ (Negative); Leukocyte Esterase,Urine Negative (Negative); Nitrite,Urine Negative (Negative); PH, Urine 5.5 (5.0-8.0); Protein,Urine Trace (Negative); Specific Gravity,Urine 1.018 (1.001-1.035); Urobilinogen,Urine <2.0 mg/dL (<2.0)
[2018-11-20 00:04] LABS: Basophils % (A) 0 %; Eosinophils # (A) 0.2 k/uL (0-0.7); Eosinophils % (A) 3 %; HCT 39.1 % (34.0-46.0); HGB 12.9 gm/dL (11.4-16.0); Lymphocytes # (A) 0.9 k/uL (1.0-4.8); Lymphocytes % (A) 10 %; MCH 27.1 pg (25.0-35.0); MCHC 32.9 g/dL (31.0-37.0); MCV 82.4 fL (80.0-100.0); Mean Platelet Volume 7.8; Monocytes # (A) 0.4 k/uL (0-1.0); Monocytes % (A) 5 %; Neutrophils # (A) 7.1 k/uL (1.3-7.7); Neutrophils % (A) 81 %; Platelet Count 182 k/uL (150-450); RBC 4.74 m/uL (3.80-5.40); RDW 14.7 % (11.5-15.5); WBC 8.9 k/uL (3.8-10.6)
[2018-11-20 00:26] LABS: ALT 12 U/L (9-52); AST 12 U/L (14-36); African American GFR (CKD) >90 (>60 ml/min/1.73 sqM); Albumin 4.3 g/dL (3.5-5.0); Alkaline Phosphatase 50 U/L (38-126); Anion Gap 9 mmol/L; Blood Urea Nitrogen 5 mg/dL (7-17); Calcium 9.4 mg/dL (8.4-10.2); Carbon Dioxide 25 mmol/L (22-30); Chloride 102 mmol/L (98-107); Glucose 108 mg/dL (74-99); Potassium 3.7 mmol/L (3.5-5.1); Sodium 136 mmol/L (137-145); Total Bilirubin 0.3 mg/dL (0.2-1.3); Total Protein 6.9 g/dL (6.3-8.2)
[2018-11-20 01:22] VITALS: BP 111/64; PULSE 84; RESP 18; TEMP 98
--- NOTE | 2018-11-20 01:49 | US ---
EXAM: US First Trimester, Transabdominal US , Transvaginal CLINICAL HISTORY: ITS.REASON US Reason: pain TECHNIQUE: Real-time transabdominal and transvaginal obstetrical ultrasound of the maternal pelvis and a first trimester with image documentation. Transvaginal imaging was used for better evaluation of the fetus and adnexa. COMPARISON: Ultrasound OB 10/24/18 FINDINGS: See Impression. IMPRESSION: Single live intrauterine measuring 11 weeks 6 days by ultrasound with heart rate of 162 bpm No definite or significant subchorionic hemorrhage. No adnexal masses or significant free pelvic fluid. 1.7 cm cystic lesion involving the right ovary may represent a corpus luteum cyst. Uterus measures 13.0 x 6.5 x 8.9 cm. Right ovary measures 3.8 x 2.1 x 2.0 cm. Left ovary measures 2.1 x 1.1 x 1.5 cm.
[2018-11-20 01:50] LABS: HCG,Quantitative Serum 93930.8 mIU/mL
== END 2018-11-20 02:19 | disposition home or self-care (01) ==
LOC: EC 22:41
DX: O99.89 Other specified diseases and conditions complicating pregnancy, childbirth and the puerperium (principal); R25.2 Cramp and spasm; O21.9 Vomiting of pregnancy, unspecified; R82.4 Acetonuria; M54.5 Low back pain; Z67.40 Type O blood, Rh positive; Z3A.10 10 weeks gestation of pregnancy; Z53.20 Procedure and treatment not carried out because of patient's decision for unspecified reasons
CPT/HCPCS: 36415; 76801; 76813; 80053; 81003; 84702; 85025; 86900; 86901; 96360; 96361; 99284

== ENCOUNTER 2018-11-22 20:13 | Emergency (ER) | payer OTHER ==
--- NOTE | 2018-11-22 21:15 | XR ---
EXAMINATION TYPE: XR chest 2V DATE OF EXAM: 11/22/2018 COMPARISON: 04/18/2018 HISTORY: Short of breath TECHNIQUE: Frontal and lateral views of the chest are obtained. FINDINGS: Heart and mediastinum are normal. Lungs are clear. Diaphragm is normal. Bony thorax appear s normal. IMPRESSION: Normal chest. No change.
--- NOTE | 2018-11-22 21:19 | ED ---
General Adult HPI - General Chief complaint: Upper Respiratory Infection Stated complaint: Cough/Congestion/10weeks Time Seen by Provider: 11/22/18 20:28 Source: patient, RN notes reviewed Mode of arrival: ambulatory Limitations: no limitations - History of Present Illness Initial comments: 28-year-old female presents to the emergency department for a chief complaint of cough 5 days. Patient currently 10 weeks . Patient states that her whole family is sick. Patient states she has a stuffy nose with this cough. States her daughter was just diagnosed with pneumonia so she would like to make sure she doesn't have pneumonia. Denies fevers or chills. Denies shortness of breath. Denies any chest pain. Patient has no other complaints at this time including shortness of breath, chest pain, abdominal pain, nausea or vomiting, headache, or visual changes. - Related Data Home Medications Medication Instructions Recorded Confirmed Iys-Ackm-Zuusq Acid 1 cap PO DAILY 10/17/18 11/22/18 [-U Capsule (formulary)] Allergies Allergy/AdvReac Type Severity Reaction Status Date / Time No Known Allergies Allergy Verified 11/22/18 20:44 Review of Systems ROS Statement: Those systems with pertinent positive or pertinent negative responses have been documented in the HPI. ROS Other: All systems not noted in ROS Statement are negative. Past Medical History Past Medical History: No Reported History History of Any Multi-Drug Resistant Organisms: None Reported Past Surgical History: No Surgical Hx Reported Past Psychological History: Anxiety Smoking Status: Never smoker Past Alcohol Use History: Rare Past Drug Use History: None Reported General Exam Limitations: no limitations General appearance: alert, in no apparent distress Head exam: Present: atraumatic, normocephalic, normal inspection Eye exam: Present: normal appearance, PERRL, EOMI. Absent: scleral icterus, conjunctival injection, periorbital swelling ENT exam: Present: normal exam, normal oropharynx (Uvula midline, no tonsillar exudates noted bilaterally), mucous membranes moist, TM's normal bilaterally, normal external ear exam Neck exam: Present: normal inspection, full ROM. Absent: tenderness, meningismus, lymphadenopathy Respiratory exam: Present: normal lung sounds bilaterally. Absent: respiratory distress, wheezes, rales, rhonchi, stridor Cardiovascular Exam: Present: regular rate, normal rhythm, normal heart sounds. Absent: systolic murmur, diastolic murmur, rubs, gallop, clicks Neurological exam: Present: alert, oriented X3, CN II-XII intact Psychiatric exam: Present: normal affect, normal mood Course Vital Signs 11/22/18 20:23 Temperature 98.7 F Pulse Rate 98 Respiratory 18 Rate Blood Pressure 139/86 O2 Sat by Pulse 97 Oximetry Medical Decision Making - Medical Decision Making 28-year-old female currently 10 weeks presents to the emergency department for chief clinic cough 5 days. States her whole family has this cough. States she has a stuffy nose and is losing her voice a little bit. Denies any centimeters of breath or chest pain. States that her daughter was just diagnosed with pneumonia. Vitals are stable. Patient well-appearing on exam. Lungs are clear to auscultation bilaterally. Chest x-ray shows a normal chest. Lungs are clear. Patient likely has a viral upper respiratory infection. Patient has an appointment with her OB tomorrow that she will attend. Patient will return here if she has any other worsening symptoms. Disposition Clinical Impression: Cough, Viral upper respiratory infection Disposition: HOME SELF-CARE Condition: Good Instructions (If sedation given, give patient instructions): Upper Respiratory Infection (ED) Additional Instructions: Please follow-up at your appointment tomorrow. If you have any worsening symptoms return here to the emergency department. Is patient prescribed a controlled substance at d/c from ED?: No Referrals: Ebonie Marc DO [Primary Care Provider] - 1-2 days Time of Disposition: 22:17
[2018-11-22 22:35] VITALS: BP 130/78; PULSE 87; RESP 18; TEMP 98.6
== END 2018-11-22 22:34 | disposition home or self-care (01) ==
LOC: EC 20:13
DX: O99.511 Diseases of the respiratory system complicating pregnancy, first trimester (principal); J06.9 Acute upper respiratory infection, unspecified; Z3A.10 10 weeks gestation of pregnancy
CPT/HCPCS: 71046; 99283

== ENCOUNTER 2018-11-28 20:04 | Emergency (ER) | payer OTHER ==
[2018-11-28 20:18] VITALS: RESP 18
[2018-11-28 20:45] LABS: Appearance,Urine Clear (Clear); Bilirubin,Urine Negative (Negative); Blood,Urine Negative (Negative); Color,Urine Light Yellow; Glucose,Urine (UA) Negative (Negative); Ketones,Urine Negative (Negative); Leukocyte Esterase,Urine Negative (Negative); Nitrite,Urine Negative (Negative); PH, Urine 6.5 (5.0-8.0); Protein,Urine Negative (Negative); Specific Gravity,Urine 1.008 (1.001-1.035); Urobilinogen,Urine <2.0 mg/dL (<2.0)
[2018-11-28] MEDS ORDERED: SODIUM CHLORIDE 0.9% 2,000 ML IV ONE (21:08)
--- NOTE | 2018-11-28 21:21 | ED ---
Abdominal Pain HPI - General Chief Complaint: Abdominal Pain Stated Complaint: Cramping-11 wks Time Seen by Provider: 11/28/18 20:43 Source: patient, RN notes reviewed Mode of arrival: ambulatory Limitations: no limitations - History of Present Illness Initial Comments: 28-year-old female presents emergency Department chief complaint abdominal pain and . Patient states she is currently 11 weeks . Patient states her LINEN CHECKER is Dr. Lou. Patient is A0. Patient states she had some lower abdominal pressure, vaginal discharged with no blood. Patient states she just has cramping lower abdomen. She does admit to ongoing nausea vomiting. Patient has seen her LINEN CHECKER but no official ultrasound has been ordered. Greg beatty denies any diarrhea constipation no other complaints at this time. - Related Data Home Medications Medication Instructions Recorded Confirmed Vba-Jamn-Sbcbz Acid 1 cap PO DAILY 10/17/18 11/28/18 [-U Capsule (formulary)] Allergies Allergy/AdvReac Type Severity Reaction Status Date / Time No Known Allergies Allergy Verified 11/28/18 20:47 Review of Systems ROS Statement: Those systems with pertinent positive or pertinent negative responses have been documented in the HPI. ROS Other: All systems not noted in ROS Statement are negative. Past Medical History Past Medical History: No Reported History History of Any Multi-Drug Resistant Organisms: None Reported Past Surgical History: No Surgical Hx Reported Past Psychological History: Anxiety Smoking Status: Never smoker Past Alcohol Use History: Rare Past Drug Use History: None Reported General Exam Limitations: no limitations General appearance: alert, in no apparent distress Neck exam: Present: normal inspection. Absent: tenderness, meningismus, lymphadenopathy Respiratory exam: Present: normal lung sounds bilaterally. Absent: respiratory distress, wheezes, rales, rhonchi, stridor Cardiovascular Exam: Present: regular rate, normal rhythm, normal heart sounds. Absent: systolic murmur, diastolic murmur, rubs, gallop, clicks GI/Abdominal exam: Present: soft, tenderness (Mild lower), normal bowel sounds. Absent: distended, guarding, rebound, rigid Course Vital Signs 11/28/18 20:15 Temperature 98.4 F Pulse Rate 99 Respiratory 18 Rate Blood Pressure 110/74 O2 Sat by Pulse 95 Oximetry Medical Decision Making - Medical Decision Making 28-year-old female presented emergency apartment with chief complaint of abdominal pain . Patient had normal ultrasound, urinalysis and lab wo rk. Patient was hydrated. Patient we discharged return parameters were discussed. - Lab Data Result diagrams: 11/28/18 21:33 11/28/18 21:33 Lab Results 11/28/18 11/28/18 11/28/18 Range/Units 20:18 21:33 21:33 WBC 9.0 (3.8-10.6) k/uL RBC 4.60 (3.80-5.40) m/uL Hgb 12.4 (11.4-16.0) gm/dL Hct 37.2 (34.0-46.0) % MCV 80.8 (80.0-100.0) fL MCH 27.0 (25.0-35.0) pg MCHC 33.4 (31.0-37.0) g/dL RDW 15.1 (11.5-15.5) % Plt Count 209 (150-450) k/uL Neutrophils % 76 % Lymphocytes % 17 % Monocytes % 4 % Eosinophils % 2 % Basophils % 0 % Neutrophils # 6.8 (1.3-7.7) k/uL Lymphocytes # 1.5 (1.0-4.8) k/uL Monocytes # 0.4 (0-1.0) k/uL Eosinophils # 0.2 (0-0.7) k/uL Basophils # 0.0 (0-0.2) k/uL Sodium 136 L (137-145) mmol/L Potassium 3.6 (3.5-5.1) mmol/L Chloride 103 (98-107) mmol/L Carbon Dioxide 23 (22-30) mmol/L Anion Gap 10 mmol/L BUN 7 (7-17) mg/dL Creatinine 0.44 L (0.52-1.04) mg/dL Est GFR (CKD-EPI)AfAm >90 (>60 ml/min/1.73 sqM) Est GFR (CKD-EPI)NonAf >90 (>60 ml/min/1.73 sqM) Glucose 98 (74-99) mg/dL Calcium 9.3 (8.4-10.2) mg/dL Total Bilirubin 0.2 (0.2-1.3) mg/dL AST 11 L (14-36) U/L ALT 10 (9-52) U/L Alkaline Phosphatase 54 (38-126) U/L Total Protein 6.4 (6.3-8.2) g/dL Albumin 3.7 (3.5-5.0) g/dL Urine Color Light Yellow Urine Appearance Clear (Clear) Urine pH 6.5 (5.0-8.0) Ur Specific [place] 1.008 (1.001-1.035) Urine Protein Negative (Negative) Urine Glucose (UA) Negative (Negative) Urine Ketones Negative (Negative) Urine Blood Negative (Negative) Urine Nitrite Negative (Negative) Urine Bilirubin Negative (Negative) Urine Urobilinogen <2.0 (<2.0) mg/dL Ur Leukocyte Esterase Negative (Negative) Disposition Clinical Impression: Abdominal pain during Disposition: HOME SELF-CARE Condition: Stable Instructions (If sedation given, give patient instructions): Abdominal Pain in (ED) Additional Instructions: Please return to the Emergency Department if symptoms worsen or any other concerns. Is patient prescribed a controlled substance at d/c from ED?: No Referrals: Ebonie Marc DO [Primary Care Provider] - 1-2 days Time of Disposition: 22:12
[2018-11-28] MEDS ORDERED: METOCLOPRAMIDE 5 MG/ML 2 ML VIAL IVP STA (21:31)
[2018-11-28] MEDS ORDERED: ACETAMINOPHEN TAB 325 MG TAB PO STA (21:31)
[2018-11-28 21:47] LABS: Basophils % (A) 0 %; Eosinophils # (A) 0.2 k/uL (0-0.7); Eosinophils % (A) 2 %; HCT 37.2 % (34.0-46.0); HGB 12.4 gm/dL (11.4-16.0); Lymphocytes # (A) 1.5 k/uL (1.0-4.8); Lymphocytes % (A) 17 %; MCHC 33.4 g/dL (31.0-37.0); MCV 80.8 fL (80.0-100.0); Mean Platelet Volume 8.1; Monocytes # (A) 0.4 k/uL (0-1.0); Monocytes % (A) 4 %; Neutrophils # (A) 6.8 k/uL (1.3-7.7); Neutrophils % (A) 76 %; Platelet Count 209 k/uL (150-450); RDW 15.1 % (11.5-15.5)
[2018-11-28 21:53] LABS: ALT 10 U/L (9-52); AST 11 U/L (14-36); African American GFR (CKD) >90 (>60 ml/min/1.73 sqM); Albumin 3.7 g/dL (3.5-5.0); Alkaline Phosphatase 54 U/L (38-126); Anion Gap 10 mmol/L; Blood Urea Nitrogen 7 mg/dL (7-17); Calcium 9.3 mg/dL (8.4-10.2); Carbon Dioxide 23 mmol/L (22-30); Chloride 103 mmol/L (98-107); Glucose 98 mg/dL (74-99); Potassium 3.6 mmol/L (3.5-5.1); Sodium 136 mmol/L (137-145); Total Bilirubin 0.2 mg/dL (0.2-1.3); Total Protein 6.4 g/dL (6.3-8.2)
--- NOTE | 2018-11-28 22:11 | US ---
EXAMINATION TYPE: Transabdominal DATE OF EXAM: 11/28/2018 9:26 PM COMPARISON: Ultrasound 11/20/2018 CLINICAL HISTORY: Pain. Cramping EXAM PERFORMED: Transabdominal (TA) EXAM MEASUREMENTS: GESTATIONAL AGE / DATING Physician Established: (11 weeks/5 days) EDC: 06/14/2019 Dates by LMP: (11 weeks/5 days) EDC: 06/14/2019 Dates by First Scan: (8 weeks/0 days) EDC: 06/05/2019 Dates by Current Scan for: (12 weeks/6 days) EDC: 06/06/2019 MATERNAL ANATOMY Uterus: 14.4 x 9.5 x 10.7 cm Right Ovary: 3.1 x 2.1 x 3.7 cm Post CDS / Adnexa: wnl Presence of free fluid: no Presence of corpus luteal cyst: yes right Presence of subchorionic bleed: no GESTATION / SURVEY CRL: 6.56 cm (12 weeks/6 days) Heart Rate: 175 bpm Rhythm: Normal IUP: Viable IUP IMPRESSION: Viable IUP corresponding with 12 weeks 6 days gestation with heart rate 175 bpm.
[2018-11-28 22:37] VITALS: BP 126/66; PULSE 94; TEMP 98.6
== END 2018-11-28 22:37 | disposition home or self-care (01) ==
LOC: EC 20:04
DX: O26.891 Other specified pregnancy related conditions, first trimester (principal); R10.30 Lower abdominal pain, unspecified; Z3A.12 12 weeks gestation of pregnancy
CPT/HCPCS: 36415; 80053; 85025; 81003; 76801; 99284; 96374; 96361 ×2; J2765

== ENCOUNTER 2019-01-12 23:35 | Emergency (ER) | payer OTHER ==
[2019-01-13 01:02] LABS: Appearance,Urine Cloudy (Clear); Bilirubin,Urine Negative (Negative); Blood,Urine Negative (Negative); Color,Urine Yellow; Glucose,Urine (UA) Negative (Negative); Ketones,Urine Negative (Negative); Leukocyte Esterase,Urine Moderate (Negative); Mucus,Urine Many /hpf; Nitrite,Urine Negative (Negative); Protein,Urine Trace (Negative); Specific Gravity,Urine 1.026 (1.001-1.035); Squamous Epithelial Cell,Urine 12 /hpf (0-4); Urobilinogen,Urine <2.0 mg/dL (<2.0); WBC,Urine 10 /hpf (0-5)
--- NOTE | 2019-01-13 01:11 | ED ---
Abdominal Pain HPI - General Chief Complaint: Abdominal Pain Stated Complaint: 19 wks preg,cramping Time Seen by Provider: 01/13/19 00:16 Source: patient Mode of arrival: ambulatory Limitations: no limitations - History of Present Illness Initial Comments: Madonna is a female currently 19wks who presents to emergency department today for evaluation of cramping lower abdominal pain and 1 episode of spotting yesterday. Patient is currently with a single intrauterine confirmed by US. She reports that yesterday morning she had some mild spotting, she's had some mild cramping throughout yesterday and today so this evening she decided to come to the ER for evaluation. She has not had any bleeding today. She denies any dysuria or hematuria. Patient reports she is not currently sexually active. - Related Data Home Medications Medication Instructions Recorded Confirmed Sbp-Fcjj-Lrmce Acid 1 cap PO DAILY 10/17/18 11/28/18 [-U Capsule (formulary)] Allergies Allergy/AdvReac Type Severity Reaction Status Date / Time No Known Allergies Allergy Verified 01/13/19 00:12 Review of Systems ROS Statement: Those systems with pertinent positive or pertinent negative responses have been documented in the HPI. ROS Other: All systems not noted in ROS Statement are negative. Past Medical History Past Medical History: No Reported History History of Any Multi-Drug Resistant Organisms: None Reported Past Surgical History: No Surgical Hx Reported Past Psychological History: Anxiety Smoking Status: Never smoker Past Alcohol Use History: None Reported Past Drug Use History: None Reported General Exam - General Exam Comments Initial Comments: Physical Exam GENERAL: Patient is well-developed and well-nourished. Patient is nontoxic and well- hydrated and is in no distress. HENT: Normocephalic, Atraumatic. EYES: PERRL, EOMI PULMONARY: Unlabored respirations. No audible rales rhonchi or wheezing was noted. CARDIOVASCULAR: There is a regular rate and rhythm without any murmurs gallops or rubs. ABDOMEN: Soft and nontender with normal bowel sounds. Bedside ultrasound reveals an active fetus, heart rate in the 160s SKIN: Skin is clear with no lesions or rashes and otherwise unremarkable. : Deferred NEUROLOGIC: Patient is alert and oriented x3. Moving all extremities spontaneously MUSCULOSKELETAL: Normal extremities with adequate strength and full range of motion. No lower extremity swelling or edema. No calf tenderness. PSYCHIATRIC: Normal psychiatric evaluation Limitations: no limitations Course Vital Signs 01/13/19 01/13/19 00:09 01:22 Temperature 97.8 F 98 F Pulse Rate 71 74 Respiratory 16 18 Rate Blood Pressure 103/73 108/72 O2 Sat by Pulse 99 98 Oximetry Medical Decision Making - Medical Decision Making Patient was seen and evaluated, hx obtained from patient and medical record Patient blood type O+ there is no indication for Rhogam Bedside US with active fetus, heart rate in the 160s, adequate amniotic fluid UA with no evidence of UTI At this time patient feels reassured and is comfortable with the plan for discharge home Shanice patient has scheduled follow-up with her OB next week for ultrasound All questions pertaining care were answered return parameters were discussed, pelvic rest was encouraged until follow-up with platen builder up - Lab Data Lab Results 01/13/19 Range/Units 00:14 Urine Color Yellow Urine Appearance Cloudy H (Clear) Urine pH 6.0 (5.0-8.0) Ur Specific [place] 1.026 (1.001-1.035) Urine Protein Trace H (Negative) Urine Glucose (UA) Negative (Negative) Urine Ketones Negative (Negative) Urine Blood Negative (Negative) Urine Nitrite Negative (Negative) Urine Bilirubin Negative (Negative) Urine Urobilinogen <2.0 (<2.0) mg/dL Ur Leukocyte Esterase Moderate H (Negative) Urine WBC 10 H (0-5) /hpf Ur Squamous Epith Cells 12 H (0-4) /hpf Urine Mucus Many H (None) /hpf Disposition Clinical Impression: Abdominal pain during in second trimester Disposition: HOME SELF-CARE Condition: Stable Instructions (If sedation given, give patient instructions): Abdominal Pain in (ED) Is patient prescribed a controlled substance at d/c from ED?: No Referrals: Ebonie Marc DO [Primary Care Provider] - 1-2 days
[2019-01-13 01:23] VITALS: BP 108/72; PULSE 74; RESP 18; TEMP 98
== END 2019-01-13 01:22 | disposition home or self-care (01) ==
LOC: EC 23:35
DX: O99.89 Other specified diseases and conditions complicating pregnancy, childbirth and the puerperium (principal); R10.30 Lower abdominal pain, unspecified; Z3A.19 19 weeks gestation of pregnancy
CPT/HCPCS: 81001; 99284

== ENCOUNTER → 2019-01-18 | Outpatient (CLI) | payer OTHER ==
--- NOTE | 2019-01-19 08:34 | US ---
EXAMINATION TYPE: US OB anatomy transabd DATE OF EXAM: 01/18/2019 COMPARISON: 11/28/2018 HISTORY: O36.62X0 LARGE FOR DATES TECHNIQUE: Transabdominal (TA) EXAM MEASUREMENTS: GESTATIONAL AGE / DATING Physician Established: (19 weeks/0 days) EDC: 06/06/2019 Dates by LMP: (19 weeks/0 days) EDC: 06/06/2019 Dates by First Scan: (19 weeks/0 days) EDC: 06/06/2019 Dates by Current Scan for: (19 weeks/5 days) EDC: 06/09/2019 SURVEY IUP: viable PLACENTA: posterior PREVIA: no NICKY: 18.6 cm CERVICAL LENGTH (transabdominal: norm > 3.0cm): 4.0 cm BIOMETRY PRESENTATION: veretx LIE: vertex BPD: 4.6 cm 19 weeks / 6 days HC: 16.7 cm 19 weeks / 3 days AC: 14.4 cm 19 weeks / 5 days FL: 3.2 cm 19 weeks / 6 days ESTIMATED WEIGHT IN GRAMS: 312 grams ESTIMATED WEIGHT IN LBS/OZ: 0 lbs. 11 oz. WEIGHT PERCENTAGE BASED ON ESTABLISHED DATE: 87 % HC/AC: 1.16 wnl FL/AC: 22 wnl HEART RATE: 145 bpm RHYTHM: normal ANATOMY SEEN (within normal limits): * Lateral Vent (< 1 cm) 0.6 cm * Cisterna Magna (< 1.1 cm) 0.3 cm * Nuchal Fold (< 0.6 cm) 0.1 cm * Cerebellum (varies with age) 1.9 cm Choroid Plexus (bilateral) Midline Falx Cavus Septi Pellucidi Four Chamber Heart Outflow tracts: LVOT/RVOT Stomach Situs Nose / Lips Diaphragm Kidneys (bilateral) Bladder Cord Insert Three Vessel Cord Longitudinal Spine Transverse Spine Arms (bilateral) Legs (bilateral) ANATOMY NOT SEEN: none IMPRESSION: Single live intrauterine with a calculated sonographic age of 19 weeks and 5 da ys and estimated date of delivery of 06/09/2019, concordant with menstrual age. Anatomic ultrasound saturnino ssly unremarkable. Estimated weight percentage based on established dates of 87% with the provided hi story of large for gestational age.
== END | disposition home or self-care (01) ==
LOC: RADUSWWP 16:23
PROVIDERS: ATTEND Obstetrics & Gynecology
DX: O36.62X0 Maternal care for excessive fetal growth, second trimester, not applicable or unspecified (principal); Z3A.19 19 weeks gestation of pregnancy
CPT/HCPCS: 76811

== ENCOUNTER 2019-02-18 19:05 | Outpatient (CLI) | payer OTHER ==
[2019-02-18 20:34] LABS: Appearance,Urine Clear (Clear); Bilirubin,Urine Negative (Negative); Blood,Urine Negative (Negative); Color,Urine Yellow; Glucose,Urine (UA) Negative (Negative); Ketones,Urine Negative (Negative); Leukocyte Esterase,Urine Negative (Negative); Nitrite,Urine Negative (Negative); Protein,Urine Negative (Negative); Specific Gravity,Urine 1.016 (1.001-1.035); Urobilinogen,Urine <2.0 mg/dL (<2.0)
[2019-02-18 20:35] VITALS: BP 116/60; PULSE 85; RESP 16; TEMP 98.9
--- NOTE | 2019-02-19 07:47 | P.MSEPDOC ---
Presenting Problems - Arrival Data Date of Arrival on Unit: 02/18/19 Time of Arrival on Unit: 19:05 Mode of Transport: Ambulatory - Complaint Comment: pelvic pressure Medical History - Information : 3 Para: 2 Term: 2 : 0 Abortions: Spontaneous or Elective: 0 Number of Living Children: 2 - Gestational Age Gestational Age by RAMY (wks/days): 23 Weeks and 3 Days Review of Systems - Review of Systems Constitutional: No problems Breast: No problems ENT: No problems Cardiovascular: No problems Respiratory: No problems Gastrointestinal: No problems Genitourinary: Increased frequency Musculoskeletal: No problems Neurological: No problems Skin: No problems Vital Signs - Temperature Temperature: 98.9 F Temperature Source: Oral - Pulse Right Brachial Pulse Rate: 85 Pulse Assessment Method: Automatic Cuff - Respirations Respiratory Rate: 16 Oxygen Delivery Method: Room Air - Blood Pressure Right Arm Sitting Blood Pressure: 116/60 Blood Pressure Mean: 78 Blood Pressure Source: Automatic Cuff Medical Screen Scoring (Pre) - Cervical Exam Dilation: 0 cm = 0 - Uterine Contractions Frequency: N/A - Assessment - Baby A Baseline FHR: 142 - Total Score - Baby A Total Score - Baby A: 0 - Total Score - Baby B Total Score - Baby B: 0 - Total Score - Baby C Total Score - Baby C: 0 - Level of Risk - Baby A Level of Risk - Baby A: Low (0-5) - Level of Risk - Baby B Level of Risk - Baby B: Low (0-5) - Level of Risk - Baby C Level of Risk - Baby C: Low (0-5) Physician Notification (Pre) - Physician Notified Physician Notified Date: 02/18/19 Physician Notified Time: 19:52 Spoke With: Sheridan Smith Order Received: Yes (send UA check cervix) Medical Screen Scoring (Post) - Cervical Exam Dilation: 0 cm = 0 - Uterine Contractions Frequency: N/A - Total Score Total Score - Baby A: 0 Total Score - Baby B: 0 Total Score - Baby C: 0 - Post Treatment Level of Risk Post Treatment Level of Risk - Baby A: Low (0-5) Post Treatment Level of Risk - Baby B: Low (0-5) Post Treatment Level of Risk - Baby C: Low (0-5) Physician Notification (Post) - Physician Notified Physician Notified Date: 02/18/19 Physician Notified Time: 20:40 Spoke With: Sheridan Smith Order Received: Yes (discharge with instruction to follow up wednesday with tierney) Disposition - Disposition OB Disposition: Discharge to home, Written follow up instructions reviewed Discharge Date: 02/18/19 Discharge Time: 20:46 I agree with the RN Medical Screening Exam: Yes Risk & Benefit of care provided described in d/c instruction: Yes Diagnosis: PAIN, UNSPECIFIED
== END 2019-02-18 20:46 | disposition home or self-care (01) ==
LOC: FBPOP 19:05
PROVIDERS: ATTEND Obstetrics & Gynecology
DX: O99.89 Other specified diseases and conditions complicating pregnancy, childbirth and the puerperium (principal); R52 Pain, unspecified; Z3A.23 23 weeks gestation of pregnancy
CPT/HCPCS: 81003; 99213

== ENCOUNTER 2019-04-06 17:00 | Outpatient (CLI) | payer OTHER ==
[2019-04-06 17:33] LABS: Appearance,Urine Clear (Clear); Bacteria,Urine Few /hpf; Bilirubin,Urine Negative (Negative); Blood,Urine Negative (Negative); Color,Urine Light Yellow; Glucose,Urine (UA) Negative (Negative); Ketones,Urine Negative (Negative); Leukocyte Esterase,Urine Trace (Negative); Mucus,Urine Rare /hpf; Nitrite,Urine Negative (Negative); PH, Urine 6.5 (5.0-8.0); Protein,Urine Negative (Negative); RBC,Urine 2 /hpf (0-5); Specific Gravity,Urine 1.007 (1.001-1.035); Squamous Epithelial Cell,Urine 5 /hpf (0-4); Urobilinogen,Urine <2.0 mg/dL (<2.0); WBC,Urine 1 /hpf (0-5)
[2019-04-06 18:22] VITALS: BP 134/63; PULSE 100; RESP 16; TEMP 98.6
--- NOTE | 2019-04-06 19:11 | P.MSEPDOC ---
Presenting Problems - Arrival Data Date of Arrival on Unit: 04/06/19 Time of Arrival on Unit: 17:00 Mode of Transport: Ambulatory - Complaint OB-Reason for Admission/Chief Complaint: Rule Out PROM, Vaginal Bleeding, Pain Comment: cramping Medical History - Information : 3 Para: 2 Term: 2 : 0 Abortions: Spontaneous or Elective: 0 Number of Living Children: 2 - Gestational Age Gestational Age by RAMY (wks/days): 30 Weeks and 1 Days Review of Systems - Review of Systems Constitutional: No problems Breast: No problems ENT: No problems Cardiovascular: No problems Respiratory: No problems Gastrointestinal: No problems Genitourinary: No problems Musculoskeletal: No problems Neurological: No problems Skin: No problems Vital Signs - Temperature Temperature: 98.6 F Temperature Source: Oral - Pulse Right Sitting Pulse Rate: 100 Pulse Assessment Method: Automatic Cuff - Respirations Respiratory Rate: 16 Oxygen Delivery Method: Room Air - Blood Pressure Right Arm Blood Pressure: 134/63 Blood Pressure Mean: 86 Blood Pressure Source: Automatic Cuff Medical Screen Scoring (Pre) - Cervical Exam Dilation: Exam Deferred Effacement: Exam Deferred Membranes: Intact - Uterine Contractions Frequency: N/A Duration: N/A Intensity: N/A - Maternal Vital Signs Maternal Temperature: N/A Maternal Blood Pressure: N/A Signs of Preeclampsia: N/A Maternal Respirations: N/A - Maternal Trauma Maternal Trauma: N/A - Assessment - Baby A Baseline FHR: 130 Heart Rate - NICHD Category: Category I (Normal) = 0 NST: Reactive Position: N/A Station: N/A - Total Score - Baby A Total Score - Baby A: 0 - Total Score - Baby B Total Score - Baby B: 0 - Total Score - Baby C Total Score - Baby C: 0 - Level of Risk - Baby A Level of Risk - Baby A: Low (0-5) - Level of Risk - Baby B Level of Risk - Baby B: Low (0-5) - Level of Risk - Baby C Level of Risk - Baby C: Low (0-5) Physician Notification (Pre) - Physician Notified Physician Notified Date: 04/06/19 Physician Notified Time: 18:10 New Order Received: Yes (d/c home) Disposition - Disposition OB Disposition: Discharge to home Discharge Date: 04/06/19 Discharge Time: 18:15 I agree with the RN Medical Screening Exam: Yes Risk & Benefit of care provided described in d/c instruction: Yes Diagnosis: RELATED CONDITIONS, UNSPECIFIED, THIRD TRIMESTER
== END 2019-04-06 18:15 | disposition home or self-care (01) ==
LOC: FBPOP 17:00
PROVIDERS: ATTEND Obstetrics & Gynecology
DX: O26.93 Pregnancy related conditions, unspecified, third trimester (principal); Z3A.30 30 weeks gestation of pregnancy
CPT/HCPCS: 59025; 81001; 84112; 99213

== ENCOUNTER → 2019-05-19 | Outpatient (CLI) | payer OTHER ==
--- NOTE | 2019-05-22 10:00 | US ---
EXAMINATION TYPE: US OB >= 14 wk fetus DATE OF EXAM: 05/19/2019 COMPARISON: 01/18/2019 CLINICAL HISTORY: O36.63X0 Large for dates 3rd trimester TECHNIQUE: Transabdominal (TA) GESTATIONAL AGE / DATING Physician Established: (37 weeks/0 days) EDC: 06/09/2019 Dates by LMP: (37 weeks/0 days) EDC 06/09/2019 Dates by First Scan: (19 weeks/3 days) EDC: 06/09/2019 Dates by Current Scan: (35 weeks/0 days) EDC: 06/23/2019 SURVEY IUP: Single PLACENTA: Posterior PREVIA: No Previa NICKY: 13.6 cm Normal CERVICAL LENGTH (transabdominal: norm > 3.0cm): 3.3 cm BIOMETRY PRESENTATION: Vertex LIE: Longitudinal BPD: 8.67 cm 35 weeks / 0 days HC: 31.82 cm 35 weeks / 6 days AC: 31.23 cm 35 weeks / 1 days FL: 6.86 cm 35 weeks / 2 days ESTIMATED WEIGHT IN GRAMS: 2626 grams ESTIMATED WEIGHT IN LBS/OZ: 5 lbs. 13 oz. WEIGHT PERCENTAGE BASED ON ESTABLISHED DATES: 14.8% HC/AC: 1.02 cm Normal FL/AC: 21.96 cm Normal HEART RATE: 155 bpm RHYTHM: Normal IMPRESSION: Single live intrauterine with a sonographic age of 35 weeks and 0 days, late in gestation this is discordant with menstrual age. Weight percentage based on established dates of 14. 8%, this is 87% on the prior of 01/18/2019. This discrepancy is likely due to discrepancy in date rc urements given late gestation. No polyhydramnios.
== END | disposition home or self-care (01) ==
LOC: RADUSWWP 15:29
PROVIDERS: ATTEND Obstetrics & Gynecology
DX: O36.63X0 Maternal care for excessive fetal growth, third trimester, not applicable or unspecified (principal); Z3A.35 35 weeks gestation of pregnancy
CPT/HCPCS: 76805

== ENCOUNTER 2019-05-24 15:54 | Outpatient (CLI) | payer OTHER ==
--- NOTE | 2019-05-24 17:34 | US ---
EXAMINATION TYPE: US OB >= 14 wk fetus DATE OF EXAM: 05/24/2019 COMPARISON: 05/19/2019 CLINICAL HISTORY: NICKY, EFWleaking fluid TECHNIQUE: OBTA GESTATIONAL AGE / DATING Physician Established: (37 weeks/6 days) EDC: 06/08/2019 Dates by LMP: (37 weeks/5 days) EDC: 06/09/2019 Dates by First Scan: (37 weeks/5 days) EDC: 06/09/2019 Dates by Current Scan: (37 weeks/6 days) EDC: 06/08/2019 SURVEY IUP: Single PLACENTA: Fundal-posterior PREVIA: No Previa NICKY: 13.7 cm Normal CERVICAL LENGTH (transabdominal: norm > 3.0cm): 4.0 cm BIOMETRY PRESENTATION: Vertex LIE: Longitudinal BPD: 9.0 cm 36 weeks / 5 days HC: 33.9 cm 39 weeks / 1 days AC: 35.0 cm 39 weeks / 0 days FL: 7.1 cm 36 weeks / 4 days ESTIMATED WEIGHT IN GRAMS: 3391 grams ESTIMATED WEIGHT IN LBS/OZ: 7 lbs. 8 oz. WEIGHT PERCENTAGE BASED ON ESTABLISHED DATES: 67% HC/AC: 0.9 Normal FL/AC: 20 Normal HEART RATE: 132 bpm RHYTHM: Normal IMPRESSION: Amniotic fluid index is 14 cm. No evidence of oligohydramnios.
[2019-05-24 18:16] VITALS: BP 126/70; PULSE 92; RESP 16; TEMP 96.5
--- NOTE | 2019-05-31 16:21 | P.MSEPDOC ---
Presenting Problems - Arrival Data Date of Arrival on Unit: 05/24/19 Time of Arrival on Unit: 15:54 Mode of Transport: Portable - Complaint OB-Reason for Admission/Chief Complaint: Rule Out SROM Medical History - Information : 3 Para: 2 Term: 2 : 0 Abortions: Spontaneous or Elective: 0 Number of Living Children: 2 - Gestational Age Gestational Age by RAMY (wks/days): 37 Weeks and 6 Days Review of Systems - Review of Systems Constitutional: No problems Breast: No problems ENT: No problems Cardiovascular: No problems Respiratory: No problems Gastrointestinal: No problems Genitourinary: No problems Musculoskeletal: No problems Neurological: No problems Skin: No problems Vital Signs - Temperature Temperature: 96.5 F Temperature Source: Temporal Artery Scan - Pulse Right Sitting Pulse Rate: 92 Pulse Assessment Method: Automatic Cuff - Respirations Respiratory Rate: 16 Oxygen Delivery Method: Room Air - Blood Pressure Right Arm Blood Pressure: 126/70 Blood Pressure Mean: 88 Blood Pressure Source: Automatic Cuff Medical Screen Scoring (Pre) - Cervical Exam Dilation: 1-3 cm = 1 Effacement: More than 50% = 2 Membranes: Intact - Uterine Contractions Frequency: N/A Duration: N/A Intensity: N/A - Maternal Vital Signs Maternal Temperature: N/A Maternal Blood Pressure: N/A Signs of Preeclampsia: N/A Maternal Respirations: N/A - Maternal Trauma Maternal Trauma: N/A - Assessment - Baby A Baseline FHR: 135 Heart Rate - NICHD Category: Category I (Normal) = 0 NST: Reactive Position: N/A Station: N/A - Total Score - Baby A Total Score - Baby A: 3 - Total Score - Baby B Total Score - Baby B: 3 - Total Score - Baby C Total Score - Baby C: 3 - Level of Risk - Baby A Level of Risk - Baby A: Low (0-5) - Level of Risk - Baby B Level of Risk - Baby B: Low (0-5) - Level of Risk - Baby C Level of Risk - Baby C: Low (0-5) Physician Notification (Pre) - Physician Notified Physician Notified Date: 05/24/19 Physician Notified Time: 17:56 New Order Received: Yes (d/c home) Disposition - Disposition OB Disposition: Discharge to home Discharge Date: 12/18/19 Discharge Time: 18:00 I agree with the RN Medical Screening Exam: Yes Risk & Benefit of care provided described in d/c instruction: Yes Diagnosis: FALSE LABOR AT OR AFTER 37 COMPLETED WEEKS OF GESTATION
== END 2019-05-24 18:00 | disposition home or self-care (01) ==
LOC: FBPOP 15:54
PROVIDERS: ATTEND Obstetrics & Gynecology
DX: O47.1 False labor at or after 37 completed weeks of gestation (principal); Z3A.37 37 weeks gestation of pregnancy
CPT/HCPCS: 59025; 76805; 84112; 99213

== ENCOUNTER 2019-05-26 14:22 | Outpatient (CLI) | payer OTHER ==
[2019-05-26] MEDS ORDERED: INFLUENZA VACCINE (6 MOS+) 60 MCG/0.5 ML SYRINGE IM ONE (15:42)
[2019-05-26 15:58] VITALS: BP 108/70; PULSE 97; RESP 16; TEMP 97.1
--- NOTE | 2019-06-03 13:31 | P.MSEPDOC ---
Presenting Problems - Arrival Data Date of Arrival on Unit: 05/26/19 Time of Arrival on Unit: 14:28 Mode of Transport: Ambulatory - Complaint OB-Reason for Admission/Chief Complaint: Possible Onset of Labor, Decreased Movement Medical History - Information : 3 Para: 2 Number of Living Children: 2 - Gestational Age Gestational Age by RAMY (wks/days): 38 Weeks and 1 Days Review of Systems - Review of Systems Constitutional: No problems Breast: No problems ENT: Nasal congestion Cardiovascular: No problems Respiratory: No problems Gastrointestinal: Constipation Genitourinary: No problems Musculoskeletal: No problems Neurological: No problems Skin: No problems Vital Signs - Temperature Temperature: 97.1 F Temperature Source: Temporal Artery Scan - Pulse Pulse Oximetery Pulse Rate: 97 Pulse Assessment Method: Automatic Cuff - Respirations Respiratory Rate: 16 Oxygen Delivery Method: Room Air O2 Sat by Pulse Oximetry: 100 - Blood Pressure Left Arm Blood Pressure: 108/70 Blood Pressure Mean: 82 Blood Pressure Source: Automatic Cuff Medical Screen Scoring (Pre) - Cervical Exam Dilation: 1-3 cm = 1 Effacement: More than 50% = 2 Membranes: Intact - Uterine Contractions Frequency: N/A Duration: N/A Intensity: N/A - Maternal Vital Signs Maternal Temperature: N/A Maternal Blood Pressure: N/A Signs of Preeclampsia: N/A Maternal Respirations: N/A - Maternal Trauma Maternal Trauma: N/A - Assessment - Baby C Baseline FHR: 135 Heart Rate - NICHD Category: Category I (Normal) = 0 NST: Reactive - Total Score - Baby A Total Score - Baby A: 3 - Total Score - Baby B Total Score - Baby B: 3 - Total Score - Baby C Total Score - Baby C: 3 - Level of Risk - Baby A Level of Risk - Baby A: Low (0-5) - Level of Risk - Baby B Level of Risk - Baby B: Low (0-5) - Level of Risk - Baby C Level of Risk - Baby C: Low (0-5) - Pain Assessment Pain Location and Character: Back Pain Scale Used: Numeric (1 - 10) Pain Intensity: 9 Pain Description: *Acute, Cramping Pain Frequency: Intermittent Pain Duration: 4 Pain Duration Units: Days Pain Behavior: Vocalization Physician Notification (Pre) - Physician Notified Physician Notified Date: 05/26/19 Physician Notified Time: 15:00 New Order Received: Yes - Notification Comment Comment: Can discharge home or observe in triage. Discharged Home 1700. Disposition - Disposition OB Disposition: Observe, Triage Discharge Date: 05/26/19 Discharge Time: 17:00 I agree with the RN Medical Screening Exam: Yes Risk & Benefit of care provided described in d/c instruction: Yes Diagnosis: FALSE LABOR AT OR AFTER 37 COMPLETED WEEKS OF GESTATION
== END 2019-05-26 15:00 | disposition home or self-care (01) ==
LOC: FBPOP 14:22
PROVIDERS: ATTEND Obstetrics & Gynecology
DX: O47.1 False labor at or after 37 completed weeks of gestation (principal); Z3A.38 38 weeks gestation of pregnancy
CPT/HCPCS: 59025; 99213; 90471; 90686; G0008

== ENCOUNTER 2019-05-27 22:45 | Outpatient (CLI) | payer OTHER ==
[2019-05-28 01:04] VITALS: BP 131/77; PULSE 90; RESP 18; TEMP 96.7
--- NOTE | 2019-06-05 13:16 | P.MSEPDOC ---
Presenting Problems - Arrival Data Date of Arrival on Unit: 05/27/19 Time of Arrival on Unit: 22:45 Mode of Transport: Ambulatory - Complaint OB-Reason for Admission/Chief Complaint: Other Medical History - Information : 3 Para: 2 Term: 2 : 0 Abortions: Spontaneous or Elective: 0 Number of Living Children: 2 - Gestational Age Gestational Age by RAMY (wks/days): 38 Weeks and 3 Days Review of Systems - Review of Systems Constitutional: No problems Breast: No problems ENT: No problems Cardiovascular: No problems Respiratory: No problems Gastrointestinal: No problems Genitourinary: No problems Musculoskeletal: No problems Neurological: No problems Skin: No problems Vital Signs - Temperature Temperature: 96.7 F Temperature Source: Temporal Artery Scan - Pulse Right Supine Pulse Rate: 90 Pulse Assessment Method: Automatic Cuff - Respirations Respiratory Rate: 18 Oxygen Delivery Method: Room Air O2 Sat by Pulse Oximetry: 97 - Blood Pressure Right Arm Blood Pressure: 131/77 Blood Pressure Mean: 95 Blood Pressure Source: Automatic Cuff Medical Screen Scoring (Pre) - Cervical Exam Dilation: 1-3 cm = 1 Effacement: More than 50% = 2 Membranes: Intact - Uterine Contractions Frequency: N/A Duration: N/A Intensity: N/A - Maternal Vital Signs Maternal Temperature: N/A Maternal Blood Pressure: N/A Signs of Preeclampsia: N/A Maternal Respirations: N/A - Maternal Trauma Maternal Trauma: N/A - Assessment - Baby A Baseline FHR: 120 Heart Rate - NICHD Category: Category I (Normal) = 0 NST: Reactive Position: N/A Station: N/A - Total Score - Baby A Total Score - Baby A: 3 - Total Score - Baby B Total Score - Baby B: 3 - Total Score - Baby C Total Score - Baby C: 3 - Level of Risk - Baby A Level of Risk - Baby A: Low (0-5) - Level of Risk - Baby B Level of Risk - Baby B: Low (0-5) - Level of Risk - Baby C Level of Risk - Baby C: Low (0-5) Physician Notification (Pre) - Physician Notified Physician Notified Date: 05/28/19 Physician Notified Time: 00:49 New Order Received: Yes - Notification Comment Comment: Unable to contact Dr Bal for [address] Zhong called since he was cotton picking machine operator for the other group. Disposition - Disposition OB Disposition: Discharge to home Discharge Date: 05/28/19 Discharge Time: 00:56 I agree with the RN Medical Screening Exam: Yes Risk & Benefit of care provided described in d/c instruction: Yes Diagnosis: FALSE LABOR AT OR AFTER 37 COMPLETED WEEKS OF GESTATION
== END 2019-05-28 00:55 | disposition home or self-care (01) ==
LOC: FBPOP 22:45
PROVIDERS: ATTEND Obstetrics & Gynecology
DX: O47.1 False labor at or after 37 completed weeks of gestation (principal); Z3A.38 38 weeks gestation of pregnancy
CPT/HCPCS: 59025; 84112; 99213

== ENCOUNTER 2019-05-29 10:12 | Inpatient (IN) | payer OTHER ==
[2019-05-29] MEDS ORDERED: METHYLERGONOVINE 0.2 MG/ML 1 ML AMP IM PRN (10:31)
[2019-05-29] MEDS ORDERED: TERBUTALINE 1 MG/ML VIAL SQ PRN (10:31)
[2019-05-29] MEDS ORDERED: CARBOPROST TROMETHAMINE 250 MCG/ML 1 ML AMP IM PRN (10:31)
[2019-05-29] MEDS ORDERED: LIDOCAINE 0.5% (PF) 5 MG/ML (50 ML SDV) SQ PRN (10:31)
[2019-05-29] MEDS ORDERED: OXYTOCIN 10 UNIT/ML 1 ML VIAL IM PRN (10:31)
[2019-05-29] MEDS: LACTATED RINGERS 1,000 ML IV SCH ×2 (10:39→14:13)
[2019-05-29] MEDS ORDERED: OXYTOCIN 30 UNITS/500 ML NS 30 UNIT in SALINE 1 500ML.BAG IV SCH (10:45)
[2019-05-29 11:30] LABS: Basophils % (A) 0 %; Eosinophils # (A) 0.1 k/uL (0-0.7); Eosinophils % (A) 1 %; HCT 31.9 % (34.0-46.0); HGB 10.6 gm/dL (11.4-16.0); Hypochromasia Slight; Lymphocytes # (A) 1.4 k/uL (1.0-4.8); Lymphocytes % (A) 14 %; MCH 27.4 pg (25.0-35.0); MCHC 33.2 g/dL (31.0-37.0); MCV 82.6 fL (80.0-100.0); Monocytes # (A) 0.4 k/uL (0-1.0); Monocytes % (A) 4 %; Neutrophils # (A) 8.1 k/uL (1.3-7.7); Neutrophils % (A) 80 %; Platelet Count 274 k/uL (150-450); Poikilocytosis Slight; RBC 3.86 m/uL (3.80-5.40); RDW 14.4 % (11.5-15.5); WBC 10.1 k/uL (3.8-10.6)
[2019-05-29] MEDS ORDERED: SODIUM CHLORIDE 0.9% 100 ML BAG ONE (14:25)
[2019-05-29] MEDS ORDERED: fentaNYL (PF) 50 MCG/ML 5 ML AMP ONE (14:25)
[2019-05-29] MEDS ORDERED: ROPIVACAINE 5MG/ML 20ML VIAL ONE (14:25)
[2019-05-29] MEDS: OXYTOCIN 20 UNITS/1000 ML NS 1,000 ML IV SCH (17:04)
[2019-05-29] MEDS ORDERED: ZOLPIDEM 5 MG TAB PO PRN (17:35)
[2019-05-29] MEDS ORDERED: SIMETHICONE 80 MG CHEWABLE PO PRN (17:35)
[2019-05-29] MEDS ORDERED: ACETAMINOPHEN TAB 325 MG TAB PO PRN (17:35)
[2019-05-29] MEDS ORDERED: diphenhydrAMINE 50 MG CAP PO PRN (17:35)
[2019-05-29] MEDS ORDERED: diphenhydrAMINE 25 MG CAP PO PRN (17:35)
[2019-05-29] MEDS ORDERED: HYDROCORTISONE 2.5% RECTAL CREAM 30 GM TUBE RECTAL PRN (17:35)
[2019-05-29] MEDS ORDERED: LANOLIN CREAM 5 GM TUBE TOPICAL PRN (17:35)
[2019-05-29] MEDS ORDERED: diphenhydrAMINE 50 MG/ML 1 ML VIAL IVP PRN ×2 (17:35)
[2019-05-29] MEDS ORDERED: BENZOCAINE/MENTHOL SPRAY 1 GM/SPRAY AEROSOL TOPICAL PRN (17:35)
[2019-05-29] MEDS ORDERED: WITCH HAZEL 1 EACH MED..PAD TOPICAL PRN (17:35)
--- NOTE | 2019-05-29 17:38 | P.HPOB ---
History of Present Illness H&P Date: 05/29/19 Chief Complaint: intrauterine at term: Active labor Madonna is a 28-year-old at 38 weeks gestation who arrived to my office complaining of increasing pain and contractions were every 4-5 minutes. She been seen through the weekend was dilated to 3 cm on presentation to my office today she was dilated to 4-1/2 cm. She relates that she had had some possible leaking of fluid and there was some ferning on the slide but it is unclear if it was true ferning or mucus ferning. As she is 38 weeks and appears to be in early labor anyway will send her to labor and delivery and plan for delivery today. Her course otherwise had been without significant complication or problem. She does have a history of anxiety but otherwise she tolerated the well. Pertinent labs include O+ blood type, Rh antibody was negative, immune, hepatitis B surface surface antigen/RPR/a HIV were all negative GBS was also negative. heart tones are noted to be category 1 tracing and she was dilated to 5-5-1/2 cm 70% effaced and -2 station when artificial rupture membranes was performed with clear fluid noted. She plans epidural for analgesia and we'll use Pitocin for augmentation of labor. Past Medical History Past Medical History: No Reported History History of Any Multi-Drug Resistant Organisms: None Reported Past Surgical History: No Surgical Hx Reported Past Anesthesia/Blood Transfusion Reactions: No Reported Reaction Past Psychological History: Anxiety, Depression Smoking Status: Never smoker Past Alcohol Use History: None Reported Past Drug Use History: None Reported - Past Family History Father Family Medical History: No Reported History Medications and Allergies Home Medications Medication Instructions Recorded Confirmed Type No Known Home Medications 05/29/19 05/29/19 History Allergies Allergy/AdvReac Type Severity Reaction Status Date / Time No Known Allergies Allergy Verified 05/29/19 10:30 Exam Osteopathic Statement: *. No significant issues noted on an osteopathic structural exam other than those noted in the History and Physical/Consult. Vital Signs Temp Pulse Resp BP Pulse Ox 05/29/19 10:29 97.2 F L 109 H 18 135/66 100 Intake and Output 05/29/19 05/29/19 05/29/19 06:59 14:59 22:59 Intake Total 1000 Balance 1000 Intake: Intake, IV Titration 1000 Amount Lactated Ringers 1,000 ml 1000 @ 125 mls/hr IV .Q8H STAR Rx#:[id number] Other: Weight 92.533 kg Results Result Diagrams: 05/29/19 10:36 Abnormal Lab Results - Last 24 Hours (Table) 05/29/19 Range/Units 10:36 Hgb 10.6 L (11.4-16.0) gm/dL Hct 31.9 L (34.0-46.0) % Neutrophils # 8.1 H (1.3-7.7) k/uL
--- NOTE | 2019-05-29 17:39 | P.PROBDLV ---
Vaginal Delivery Note - . Vaginal Delivery Note: patient progressed complete and pushing with spontaneous vaginal delivery of a viable male over an intact perineum. Falling deliver the head anterior posterior shoulders were easily delivered with gentle downward upper traction followed by the remainder of the baby. Mouth and nares were then bulb suctioned and baby was placed mother's abdomen where the umbilical cord was allowed to pulsate for 30 seconds prior to clamping and cutting. Once this was accomp lished nursery personnel was present and assumed care. Placenta was then delivered intact and Pitocin was added to the IV. scores were 9 and 9 at one and 5 minutes respectively and the weight was 7 lbs. 2 oz. Both mother and baby are stable following delivery.
[2019-05-29] MEDS ORDERED: SENNOSIDES-DOCUSATE SODIUM 1 EACH TAB PO SCH (20:00)
[2019-05-30] MEDS: IBUPROFEN 600 MG TAB PO PRN ×2 (00:17→06:25)
--- NOTE | 2019-05-30 08:05 | P.DS ---
Providers Date of admission: 05/29/19 10:12 Expected date of discharge: 05/30/19 Attending physician: Cricket Barrios Primary care physician: Stated None Hospital Course: Madonna is doing very well day 1. She is ambulating, voiding and tolerating her diet. She voices no complaints and requests discharged home today. On physical exam vital signs are stable and she is afebrile. Heart regular, lungs clear, extremities without pain. Abdomen soft nontender. Uterus is firm and lochia is reported to be light. Bowel sounds are noted. Assessment day 1. Plan discharged home follow up with me in 6 weeks. Discharge instructions were thoroughly reviewed. Patient Condition at Discharge: Good Plan - Discharge Summary New Discharge Prescriptions: No Action No Known Home Medications Discharge Medication List No Known Home Medications 05/29/19 [History] Follow up Appointment(s)/Referral(s): Cricket Barrios DO [Doctor of Osteopathic Medicine] - 1 Week Activity/Diet/Wound Care/Special Instructions: no heavy lifting, limit stairs and driving, and pelvic rest. If any high temperatures, heavy bleeding, or severe pain call my office Discharge Disposition: HOME SELF-CARE
[2019-05-30 08:10] LABS: Basophils % (A) 0 %; Eosinophils # (A) 0.1 k/uL (0-0.7); Eosinophils % (A) 1 %; HCT 32.3 % (34.0-46.0); HGB 10.2 gm/dL (11.4-16.0); Hypochromasia Slight; Lymphocytes # (A) 1.7 k/uL (1.0-4.8); Lymphocytes % (A) 16 %; MCH 26.2 pg (25.0-35.0); MCHC 31.5 g/dL (31.0-37.0); MCV 83.3 fL (80.0-100.0); Mean Platelet Volume 9.2; Monocytes # (A) 0.6 k/uL (0-1.0); Monocytes % (A) 5 %; Neutrophils # (A) 8.3 k/uL (1.3-7.7); Neutrophils % (A) 77 %; Platelet Count 219 k/uL (150-450); Poikilocytosis Slight; RBC 3.88 m/uL (3.80-5.40); RDW 14.6 % (11.5-15.5); WBC 10.9 k/uL (3.8-10.6)
[2019-05-30 08:47] VITALS: TEMP 97.5
[2019-05-30 16:57] VITALS: BP 131/68; PULSE 68; RESP 16
== END 2019-05-30 17:32 | disposition home or self-care (01) | DRG 807 ==
LOC: 4FBP 10:12
PROVIDERS: ADMIT Obstetrics & Gynecology; ATTEND Obstetrics & Gynecology
PROC: 10E0XZZ Delivery of Products of Conception, External Approach (ICD-10-PCS; principal; 2019-05-29)
DX: O80 Encounter for full-term uncomplicated delivery (principal); Z37.0 Single live birth; Z3A.38 38 weeks gestation of pregnancy; Z86.59 Personal history of other mental and behavioral disorders
CPT/HCPCS: 85025; 86850; 86900; 86901; 88307

== ENCOUNTER 2019-09-25 16:34 | Emergency (ER) | payer OTHER ==
[2019-09-25 16:44] VITALS: RESP 18
[2019-09-25] MEDS ORDERED: SODIUM CHLORIDE 0.9% 1,000 ML IV ONE (17:27)
[2019-09-25 18:02] LABS: Appearance,Urine Clear (Clear); Bilirubin,Urine Negative (Negative); Blood,Urine Negative (Negative); Color,Urine Yellow; Glucose,Urine (UA) Negative (Negative); Ketones,Urine 2+ (Negative); Leukocyte Esterase,Urine Negative (Negative); Nitrite,Urine Negative (Negative); PH, Urine 5.5 (5.0-8.0); Protein,Urine Negative (Negative); Specific Gravity,Urine 1.018 (1.001-1.035); Urobilinogen,Urine <2.0 mg/dL (<2.0)
[2019-09-25 18:05] LABS: Basophils % (A) 0 %; Eosinophils # (A) 0.1 k/uL (0-0.7); Eosinophils % (A) 1 %; HCT 40.8 % (34.0-46.0); Lymphocytes # (A) 1.3 k/uL (1.0-4.8); Lymphocytes % (A) 16 %; MCH 27.7 pg (25.0-35.0); MCV 86.6 fL (80.0-100.0); Mean Platelet Volume 8.5; Monocytes # (A) 0.3 k/uL (0-1.0); Monocytes % (A) 4 %; Neutrophils # (A) 6.3 k/uL (1.3-7.7); Neutrophils % (A) 78 %; Platelet Count 221 k/uL (150-450); RBC 4.71 m/uL (3.80-5.40); RDW 13.4 % (11.5-15.5); WBC 8.1 k/uL (3.8-10.6)
[2019-09-25 18:11] LABS: ALT 15 U/L (4-34); AST 19 U/L (14-36); African American GFR (CKD) >90 (>60 ml/min/1.73 sqM); Albumin 4.3 g/dL (3.5-5.0); Alkaline Phosphatase 64 U/L (38-126); Anion Gap 8 mmol/L; Blood Urea Nitrogen 10 mg/dL (7-17); Calcium 9.1 mg/dL (8.4-10.2); Carbon Dioxide 24 mmol/L (22-30); Chloride 102 mmol/L (98-107); Glucose 90 mg/dL (74-99); Non-African American GFR(CKD) >90 (>60 ml/min/1.73 sqM); Sodium 134 mmol/L (137-145); Total Bilirubin 0.5 mg/dL (0.2-1.3); Total Protein 7.2 g/dL (6.3-8.2)
--- NOTE | 2019-09-25 18:53 | US ---
EXAMINATION TYPE: Ultrasound OB <= 14 weeks transvaginal DATE OF EXAM: 09/25/2019 6:36 PM COMPARISON: None. This is first US for current . CLINICAL HISTORY: 29-year-old female Pelvic pain; back pain. Pelvic and back pain x 3 days. . EXAM PERFORMED: Transvaginal (TV) and Transabdominal (TA) FINDINGS: EXAM MEASUREMENTS: GESTATIONAL AGE / DATING Physician Established: Not yet established Dates by LMP: (7 weeks/1 day) EDC: 05/12/2020 Dates by First Scan: This is first scan Dates by Current Scan for: (6 weeks/1 day +/- 4 days) EDC: 05/19/2020 MATERNAL ANATOMY Uterus: 11.1 x 8.6 x 7.1 cm. - Hypoechoic areas seen adjacent to gestational sac, largest measures: 1.4 x 1.5 x 2.1 cm. - Mixed area seen in the posterior cervix measurin.4 x 1.3 x 0.8 cm, likely a complicated cervica l nabothian cyst - Trace fluid along the endocervical canal. Right Ovary: 4.2 x 2.3 x 2.3 cm. There is a 2.6 x 1.4 x 1.9 cm hypoechoic area within, likely corpus luteum. Left Ovary: 2.5 x 1.8 x 1.1 cm. Post CDS / Adnexa: Appear wnl. Presence of free fluid: None seen. Presence of corpus luteal cyst: Area of mixed echogenicity and peripheral vascularity seen right ovar y measurin.6 x 1.4 x 1.9 cm. Presence of subchorionic bleed: Hypoechoic areas seen adjacent to gestational sac, largest measures: 1.4 x 1.5 x 2.1 cm. GESTATION / SURVEY CRL: 0.48 cm. (6 weeks/1 day) Yolk Sac (normal less than 6mm): 2.9 mm. Heart Rate: 120 bpm Rhythm: Normal IUP: Viable IUP Date of LMP: 08/06/2019 Beta HcG (if available): Pending IMPRESSION: 1. Single live intrauterine with gestational age of 6 weeks 1 day by crown-rump length. Thi s is smaller discordant with gestational age by LMP. Clinically correlate. 2. Multiple perigestational bleeds measuring up to 2.1 cm. Given the discordant size and the perigest ational bleeds, consider short interval follow-up. 3. Otherwise, complete survey recommended at 18-20 weeks.
[2019-09-25 19:02] LABS: HCG,Quantitative Serum 25614.6 mIU/mL
[2019-09-25] MEDS ORDERED: ACETAMINOPHEN TAB 500 MG TAB PO STA (19:06)
--- NOTE | 2019-09-25 19:37 | ED ---
Abdominal Pain HPI - General Chief Complaint: Abdominal Pain Stated Complaint: 8 weeks preg/spotting/crampin Time Seen by Provider: 09/25/19 16:58 Source: patient Mode of arrival: ambulatory Limitations: no limitations - History of Present Illness Initial Comments: 29-year-old female patient presents to the emergency department today for evaluation of low back and suprapubic abdominal pain. Patient states that symptoms started 2-3 days ago. States yesterday she did have some light pink spotting lasted for a short period. Patient states she did get 2 positive test a couple of weeks ago. Her last menstrual period was 08/06/2019. Patient is G4, P3. She states that she has been having nausea and vomiting associated with . Denies any constipation or diarrhea. Denies any hematuria, dysuria, urinary frequency, urinary urgency. Denies fever or chills. Denies any injury to her back. Denies radiation of the pain down her legs. Denies numbness or tingling to the lower extremities. Denies saddle anesthesia or loss of bowel or bladder control. Patient denies any recent rash, cough, shortness of breath, chest pain, diarrhea, constipation, numbness, tingling, dizziness, weakness, headache, visual changes, or any other complaints. - Related Data Home Medications Medication Instructions Recorded Confirmed No Known Home Medications 05/29/19 05/29/19 Allergies Allergy/AdvReac Type Severity Reaction Status Date / Time No Known Allergies Allergy Verified 09/25/19 16:44 Review of Systems ROS Statement: Those systems with pertinent positive or pertinent negative responses have been documented in the HPI. ROS Other: All systems not noted in ROS Statement are negative. Past Medical History Past Medical History: No Reported History History of Any Multi-Drug Resistant Organisms: None Reported Past Surgical History: No Surgical Hx Reported Past Anesthesia/Blood Transfusion Reactions: No Reported Reaction Past Psychological History: Anxiety, Depression Smoking Status: Never smoker Past Alcohol Use History: None Reported Past Drug Use History: None Reported - Past Family History Father Family Medical History: No Reported History General Exam Limitations: no limitations General appearance: alert, in no apparent distress, other (This is a well- developed, well-nourished adult female patient in no acute distress. Vital signs upon presentation are temperature 97.9F, pulse 85, respirations 18, blood pressure 129/83, pulse ox 100% on room air.) Eye exam: Present: normal appearance, PERRL, EOMI. Absent: scleral icterus, conjunctival injection, periorbital swelling ENT exam: Present: normal exam, normal oropharynx, mucous membranes moist Respiratory exam: Present: normal lung sounds bilaterally. Absent: respiratory distress, wheezes, rales, rhonchi, stridor Cardiovascular Exam: Present: regular rate, normal rhythm, normal heart sounds. Absent: systolic murmur, diastolic murmur, rubs, gallop, clicks GI/Abdominal exam: Present: soft, tenderness (Suprapubic), normal bowel sounds. Absent: distended, guarding, rebound, rigid Neurological exam: Present: alert, oriented X3, CN II-XII intact Psychiatric exam: Present: normal affect, normal mood Skin exam: Present: warm, dry, intact, normal color. Absent: rash Course Vital Signs 09/25/19 09/25/19 16:40 20:08 Temperature 97.9 F 98.1 F Pulse Rate 85 80 Respiratory 18 18 Rate Blood Pressure 129/83 118/77 O2 Sat by Pulse 100 100 Oximetry Medical Decision Making - Medical Decision Making 29-year-old female patient presented to the emergency department today for evaluation of spotting, abdominal pain, back pain. She is G4, P3, currently 6-8 weeks . Labs reviewed and did reveal hCG level at 25,000. Ultrasound did show a viable intrauterine measuring 6 weeks. Heart rate was 120. There are multiple perigestational bleeds at this time. I did discuss findings and results with the patient. We did discuss subchorionic hemorrhage versus threatened miscarriage. She'll be given lab slip to have repeat hCG performed in 2 days. She is instructed to follow-up with Dr. Barrios for further evaluation as soon as possible. Return parameters were discussed in detail. She verbalizes understanding and agrees with this plan. - Lab Data Result diagrams: 09/25/19 17:40 09/25/19 17:40 Lab Results 09/25/19 09/25/19 09/25/19 Range/Units 17:40 17:40 17:40 WBC 8.1 (3.8-10.6) k/uL RBC 4.71 (3.80-5.40) m/uL Hgb 13.0 (11.4-16.0) gm/dL Hct 40.8 (34.0-46.0) % MCV 86.6 (80.0-100.0) fL MCH 27.7 (25.0-35.0) pg MCHC 32.0 (31.0-37.0) g/dL RDW 13.4 (11.5-15.5) % Plt Count 221 (150-450) k/uL Neutrophils % 78 % Lymphocytes % 16 % Monocytes % 4 % Eosinophils % 1 % Basophils % 0 % Neutrophils # 6.3 (1.3-7.7) k/uL Lymphocytes # 1.3 (1.0-4.8) k/uL Monocytes # 0.3 (0-1.0) k/uL Eosinophils # 0.1 (0-0.7) k/uL Basophils # 0.0 (0-0.2) k/uL Sodium 134 L (137-145) mmol/L Potassium 4.0 (3.5-5.1) mmol/L Chloride 102 (98-107) mmol/L Carbon Dioxide 24 (22-30) mmol/L Anion Gap 8 mmol/L BUN 10 (7-17) mg/dL Creatinine 0.59 (0.52-1.04) mg/dL Est GFR (CKD-EPI)AfAm >90 (>60 ml/min/1.73 sqM) Est GFR (CKD-EPI)NonAf >90 (>60 ml/min/1.73 sqM) Glucose 90 (74-99) mg/dL Calcium 9.1 (8.4-10.2) mg/dL Total Bilirubin 0.5 (0.2-1.3) mg/dL AST 19 (14-36) U/L ALT 15 (4-34) U/L Alkaline Phosphatase 64 (38-126) U/L Total Protein 7.2 (6.3-8.2) g/dL Albumin 4.3 (3.5-5.0) g/dL Lipase 37 (23-300) U/L HCG, Quant 34861.6 mIU/mL Urine Color Yellow Urine Appearance Clear (Clear) Urine pH 5.5 (5.0-8.0) Ur Specific [place] 1.018 (1.001-1.035) Urine Protein Negative (Negative) Urine Glucose (UA) Negative (Negative) Urine Ketones 2+ H (Negative) Urine Blood Negative (Negative) Urine Nitrite Negative (Negative) Urine Bilirubin Negative (Negative) Urine Urobilinogen <2.0 (<2.0) mg/dL Ur Leukocyte Esterase Negative (Negative) - Radiology Data Radiology results: report reviewed, image reviewed Ultrasound of the fetus was obtained. Report was reviewed in its entirety. Impression by Dr. Cedillo shows single live intrauterine with gestational age of 6 weeks 1 day by crown-rump length. This is smaller discordant with gestational age by LMP. Multiple [place] gestational bleeds measuring up to 2.1 cm. Given the discordant size and the. Gestational bleed consider short interval follow-up. Otherwise complete survey recommended 18-20 weeks. Disposition Clinical Impression: Threatened miscarriage Disposition: HOME SELF-CARE Condition: Good Instructions (If sedation given, give patient instructions): Threatened Miscarriage (ED) Additional Instructions: Increase fluids. Maintain pelvic rest, and certain nothing into the vagina u ntil follow-up and cleared by your HY[employer]IC GOVERNOR ASSEMBLER. Have repeat labs performed in 2 days, return to the hospital to have the labs drawn. Follow-up with your HYDRAULIC GOVERNOR ASSEMBLER for recheck in 1-2 days. Return to the emergency department immediately for any new, worsening, or concerning symptoms. Is patient prescribed a controlled substance at d/c from ED?: No Referrals: Ebonie Marc DO [Primary Care Provider] - 1-2 days Time of Disposition: 19:37
[2019-09-25 20:08] VITALS: BP 118/77; PULSE 80; TEMP 98.1
== END 2019-09-25 20:08 | disposition home or self-care (01) ==
LOC: EC 16:34
DX: O20.0 Threatened abortion (principal); O21.9 Vomiting of pregnancy, unspecified; Z3A.01 Less than 8 weeks gestation of pregnancy
CPT/HCPCS: 36415; 76801; 76817; 80053; 81003; 83690; 84702; 85025; 96360; 96361; 99284

== ENCOUNTER → 2019-09-27 | Outpatient (CLI) | payer OTHER | END | disposition home or self-care (01) | LOC: LABMAIN 15:25 | PROVIDERS: ATTEND Nurse Practitioner | DX: Z53.9 Procedure and treatment not carried out, unspecified reason (principal) ==

== ENCOUNTER → 2019-09-29 | Outpatient (CLI) | payer OTHER | END | disposition home or self-care (01) | LOC: LABWHC1 08:57 | PROVIDERS: ATTEND Nurse Practitioner | DX: O20.0 Threatened abortion (principal) | CPT/HCPCS: 36415; 84702 ==

== ENCOUNTER → 2019-10-09 | Outpatient (CLI) | payer OTHER ==
--- NOTE | 2019-10-09 10:05 | US ---
EXAMINATION TYPE: Transabdominal DATE OF EXAM: 10/09/2019 9:47 AM COMPARISON: NONE CLINICAL HISTORY: [id number] follow up previous abnormal. Follow up abnormal ultrasound, cramping EXAM PERFORMED: Transabdominal (TA) EXAM MEASUREMENTS: GESTATIONAL AGE / DATING Physician Established: Not yet established Dates by LMP: (9 weeks/1 days) EDC: 05/12/20 Dates by First Scan: (8 weeks/1 days) EDC: 05/19/20 Dates by Current Scan for: (8 weeks/5 days) EDC: 05/15/20 MATERNAL ANATOMY Uterus: 11.0 x 7.8 x 9.1cm Right Ovary: 3.7 x 1.6 x 2.8cm Left Ovary: 2.1 x 1.0 x 1.5cm Post CDS / Adnexa: appears wnl Presence of free fluid: no Presence of corpus luteal cyst: yes, hypoechoic area right ovary = 2.0 x 1.2 x 2.3cm Presence of subchorionic bleed: yes, hypoechoic area adjacent to GS = 2.0 x 1.6 x 1.8cm on one image, however elongation on image 35/41 measuring up to 4.1 x 2.2 cm, increased from the prior. GESTATION / SURVEY CRL: 2.0cm (8 weeks/5 days) Yolk Sac (normal less than 6mm): 0.4cm Heart Rate: 172 bpm Rhythm: Normal IUP: Live IUP Date of LMP: 08/06/19 Beta HcG (if available): Not available at this time Single live IUP 8wks/5days with RAMY of 05/15/20. Subchorionic bleed adjacent to GS. Corpus luteum rig ht ovary IMPRESSION: Single live intrauterine with a sonographic age of 8 weeks and 5 days and estim ated date of delivery of 05/15/2020. Subchorionic hemorrhage measures up to 4.1 x 2.2 cm, increased fr om the prior.
== END | disposition home or self-care (01) ==
LOC: RADUSWWP 09:23
PROVIDERS: ATTEND Obstetrics & Gynecology
DX: Z36.89 Encounter for other specified antenatal screening (principal); O20.8 Other hemorrhage in early pregnancy; Z3A.08 8 weeks gestation of pregnancy
CPT/HCPCS: 76801

== ENCOUNTER 2019-12-13 14:47 | Emergency (ER) | payer OTHER ==
--- NOTE | 2019-12-13 17:13 | ED ---
General Adult HPI - General Chief complaint: Abdominal Pain Stated complaint: 19 wks preg/abd pain Time Seen by Provider: 12/13/19 16:00 Source: patient Mode of arrival: ambulatory Limitations: no limitations - History of Present Illness Initial comments: Patient is a 29-year-old, , 19 week female presenting to emergency per the chief complaint of abdominal cramping. Patient reports the symptoms began about 2 days ago. Patient states it feels like pressure and is somewhat constant. Patient denies increased urinary frequency or dysuria but does report increased urgency. Patient denies any nausea or vomiting. She denies any vaginal bleeding, discharge or foul odor. Denies any concern for STDs. Patient reports over the last few days she has also noticed some cramping in the left lower external ear. Patient states she does have a history of sciatica and it feels like her symptoms are being exacerbated. States the left lower extremity pain with occasional cramping usually happens in the morning.. Denies any night sweats fevers or chills. Denies hematuria, hematochezia or melena. She denies chest pain or shortness of breath. - Related Data Previous Rx's Medication Instructions Recorded Cephalexin [Keflex] 500 mg PO BID #14 cap 12/13/19 Allergies Allergy/AdvReac Type Severity Reaction Status Date / Time No Known Allergies Allergy Verified 12/13/19 15:07 Review of Systems ROS Statement: Those systems with pertinent positive or pertinent negative responses have been documented in the HPI. ROS Other: All systems not noted in ROS Statement are negative. Past Medical History Past Medical History: No Reported History History of Any Multi-Drug Resistant Organisms: None Reported Past Surgical History: No Surgical Hx Reported Past Anesthesia/Blood Transfusion Reactions: No Reported Reaction Past Psychological History: No Psychological Hx Reported Smoking Status: Never smoker Past Alcohol Use History: None Reported Past Drug Use History: None Reported - Past Family History Father Family Medical History: No Reported History General Exam Limitations: no limitations General appearance: alert, in no apparent distress Head exam: Present: atraumatic, normocephalic, normal inspection Eye exam: Present: normal appearance, PERRL, EOMI Pupils: Present: normal accommodation ENT exam: Present: normal exam, normal oropharynx, mucous membranes moist, TM's normal bilaterally, normal external ear exam Neck exam: Present: normal inspection, full ROM Respiratory exam: Present: normal lung sounds bilaterally. Absent: respiratory distress, wheezes Cardiovascular Exam: Present: regular rate, normal rhythm, normal heart sounds GI/Abdominal exam: Present: soft, other (Fundus height near the umbilicus.). Absent: distended, tenderness, guarding, rebound Extremities exam: Present: normal inspection, full ROM, normal capillary refill, calf tenderness (Mild left calf tenderness. Negative Homans bilaterally.), other (+2 ulnar and radial pulses bilaterally.). Absent: tenderness, pedal edema, joint swelling Back exam: Present: normal inspection, full ROM. Absent: tenderness, CVA tenderness (R), CVA tenderness (L), muscle spasm, paraspinal tenderness, vertebral tenderness Neurological exam: Present: alert, oriented X3 Psychiatric exam: Present: normal affect, normal mood Skin exam: Present: warm, dry, intact, normal color Course Vital Signs 12/13/19 12/13/19 15:02 19:58 Temperature 98.2 F Pulse Rate 89 82 Respiratory 16 17 Rate Blood Pressure 119/77 131/86 O2 Sat by Pulse 99 100 Oximetry Medical Decision Making - Medical Decision Making Patient is a 29-year-old female presenting to the emergency department with a chief complaint of abdominal cramping. tones were ordered by the nurse without my approval. heart tones are 140. Abdominal ultrasound reveals patient is 18 weeks and 2 days gestation. No abnormal processes detected. Amniotic fluid is adequate. Ultrasound of the left lower extremity is negative for DVT. CBC and CMP is unremarkable. Urine culture pending. UA shows elevated leukocyte esterase and white blood cells. Patient started on Keflex will be discharged with a seven-day course of Keflex. Patient is O+ with a negative antibody screen. Patient is scheduled to see in one week. Return parameters were thoroughly discussed the patient is understanding and agreeable. Case discussed with physician. - Lab Data Result diagrams: 12/13/19 18:04 12/13/19 18:04 Lab Results 12/13/19 12/13/19 12/13/19 Range/Units 16:29 18:04 18:04 WBC 6.6 (3.8-10.6) k/uL RBC 4.14 (3.80-5.40) m/uL Hgb 11.6 (11.4-16.0) gm/dL Hct 35.4 (34.0-46.0) % MCV 85.5 (80.0-100.0) fL MCH 27.9 (25.0-35.0) pg MCHC 32.6 (31.0-37.0) g/dL RDW 14.5 (11.5-15.5) % Plt Count 202 (150-450) k/uL Neutrophils % 77 % Lymphocytes % 14 % Monocytes % 5 % Eosinophils % 3 % Basophils % 0 % Neutrophils # 5.1 (1.3-7.7) k/uL Lymphocytes # 0.9 L (1.0-4.8) k/uL Monocytes # 0.3 (0-1.0) k/uL Eosinophils # 0.2 (0-0.7) k/uL Basophils # 0.0 (0-0.2) k/uL Sodium 135 L (137-145) mmol/L Potassium 4.2 (3.5-5.1) mmol/L Chloride 103 (98-107) mmol/L Carbon Dioxide 25 (22-30) mmol/L Anion Gap 7 mmol/L BUN 10 (7-17) mg/dL Creatinine 0.59 (0.52-1.04) mg/dL Est GFR (CKD-EPI)AfAm >90 (>60 ml/min/1.73 sqM) Est GFR (CKD-EPI)NonAf >90 (>60 ml/min/1.73 sqM) Glucose 96 (74-99) mg/dL Calcium 9.4 (8.4-10.2) mg/dL Total Bilirubin 0.2 (0.2-1.3) mg/dL AST 15 (14-36) U/L ALT 9 (4-34) U/L Alkaline Phosphatase 54 (38-126) U/L Total Protein 6.2 L (6.3-8.2) g/dL Albumin 3.5 (3.5-5.0) g/dL Urine Color Yellow Urine Appearance Cloudy H (Clear) Urine pH 6.0 (5.0-8.0) Ur Specific Hunker 1.021 (1.001-1.035) Urine Protein Negative (Negative) Urine Glucose (UA) Negative (Negative) Urine Ketones Negative (Negative) Urine Blood Negative (Negative) Urine Nitrite Negative (Negative) Urine Bilirubin Negative (Negative) Urine Urobilinogen <2.0 (<2.0) mg/dL Ur Leukocyte Esterase Large H (Negative) Urine RBC 4 (0-5) /hpf Urine WBC 10 H (0-5) /hpf Ur Squamous Epith Cells 17 H (0-4) /hpf Amorphous Sediment Rare H (None) /hpf Urine Mucus Occasional H (None) /hpf Blood Type Blood Type Recheck Bld Type Recheck Status Antibody Screen Spec Expiration Date 12/13/19 Range/Units 18:04 WBC (3.8-10.6) k/uL RBC (3.80-5.40) m/uL Hgb (11.4-16.0) gm/dL Hct (34.0-46.0) % MCV (80.0-100.0) fL MCH (25.0-35.0) pg MCHC (31.0-37.0) g/dL RDW (11.5-15.5) % Plt Count (150-450) k/uL Neutrophils % % Lymphocytes % % Monocytes % % Eosinophils % % Basophils % % Neutrophils # (1.3-7.7) k/uL Lymphocytes # (1.0-4.8) k/uL Monocytes # (0-1.0) k/uL Eosinophils # (0-0.7) k/uL Basophils # (0-0.2) k/uL Sodium (137-145) mmol/L Potassium (3.5-5.1) mmol/L Chloride (98-107) mmol/L Carbon Dioxide (22-30) mmol/L Anion Gap mmol/L BUN (7-17) mg/dL Creatinine (0.52-1.04) mg/dL Est GFR (CKD-EPI)AfAm (>60 ml/min/1.73 sqM) Est GFR (CKD-EPI)NonAf (>60 ml/min/1.73 sqM) Glucose (74-99) mg/dL Calcium (8.4-10.2) mg/dL Total Bilirubin (0.2-1.3) mg/dL AST (14-36) U/L ALT (4-34) U/L Alkaline Phosphatase (38-126) U/L Total Protein (6.3-8.2) g/dL Albumin (3.5-5.0) g/dL Urine Color Urine Appearance (Clear) Urine pH (5.0-8.0) Ur Specific Hunker (1.001-1.035) Urine Protein (Negative) Urine Glucose (UA) (Negative) Urine Ketones (Negative) Urine Blood (Negative) Urine Nitrite (Negative) Urine Bilirubin (Negative) Urine Urobilinogen (<2.0) mg/dL Ur Leukocyte Esterase (Negative) Urine RBC (0-5) /hpf Urine WBC (0-5) /hpf Ur Squamous Epith Cells (0-4) /hpf Amorphous Sediment (None) /hpf Urine Mucus (None) /hpf Blood Type O Positive Blood Type Recheck O Pos Bld Type Recheck Status No Antibody Screen NEGATIVE Spec Expiration Date 12/16/2019 - 2303 Disposition Clinical Impression: Abdominal cramping, Urinary tract infection Disposition: HOME SELF-CARE Condition: Stable Instructions (If sedation given, give patient instructions): Urinary Tract Infection in Women (ED) Additional Instructions: Take prescribed medication as directed. Follow with her primary care. Return to emergency department if symptoms worsen. Follow-up with the OB. Prescriptions: Cephalexin [Keflex] 500 mg PO BID #14 cap Is patient prescribed a controlled substance at d/c from ED?: No Referrals: Ebonie Marc DO [Primary Care Provider] - 1-2 days Time of Disposition: 19:52
--- NOTE | 2019-12-13 17:41 | US ---
EXAMINATION TYPE: US OB >= 14 wk fetus DATE OF EXAM: 12/13/2019 COMPARISON: None CLINICAL HISTORY: Pain/bleedingPain and spotting TECHNIQUE: Transabdominal (TA) GESTATIONAL AGE / DATING Physician Established: (18 weeks/0 days) EDC: 05/15/2020 Dates by LMP: (18 weeks/0 days) EDC: 05/15/2020 Dates by First Scan: (8 weeks/1 days) EDC: 05/15/2020 Dates by Current Scan: (18 weeks/0 days) EDC: 05/15/2020 Beta HCG (if available): Not available at this time SURVEY IUP: Single PLACENTA: Anterior PREVIA: No Previa NICKY: 16.28 cm Normal CERVICAL LENGTH (transabdominal: norm > 3.0cm): 3.1 cm BIOMETRY PRESENTATION: Breech LIE: Longitudinal BPD: 4.1 cm 18 weeks / 2 days HC: 14.37 cm 17 weeks / 4 days AC: 12.6 cm 18 weeks / 1 days FL: 2.71 cm 18 weeks / 2 days ESTIMATED WEIGHT IN GRAMS: 227.37 grams ESTIMATED WEIGHT IN LBS/OZ: 0 lbs. 8 oz. WEIGHT PERCENTAGE BASED ON ESTABLISHED DATES: 56.2% HC/AC: 1.14 cm Normal FL/AC: 18.8 cm Normal HEART RATE: 171 bpm RHYTHM: Normal IMPRESSION: The ultrasound gestational age is 18 weeks. No complicating process seen. Amniotic fluid is adequate.
--- NOTE | 2019-12-13 17:41 | US ---
EXAMINATION TYPE: US venous doppler duplex LE LT DATE OF EXAM: 12/13/2019 5:14 PM COMPARISON: NONE CLINICAL HISTORY: leg pain. Pain SIDE PERFORMED: Left TECHNIQUE: The lower extremity deep venous system is examined utilizing real time linear array sonog nura with graded compression, doppler sonography and color-flow sonography. VESSELS IMAGED: External Iliac Vein (EIV) Common Femoral Vein Deep Femoral Vein Greater Saphenous Vein * Femoral Vein Popliteal Vein Small Saphenous Vein * Left Leg: Negative for DVT IMPRESSION: No sign of deep vein thrombosis in the left leg.
[2019-12-13 18:11] LABS: Basophils % (A) 0 %; Eosinophils # (A) 0.2 k/uL (0-0.7); Eosinophils % (A) 3 %; HCT 35.4 % (34.0-46.0); HGB 11.6 gm/dL (11.4-16.0); Lymphocytes # (A) 0.9 k/uL (1.0-4.8); Lymphocytes % (A) 14 %; MCH 27.9 pg (25.0-35.0); MCHC 32.6 g/dL (31.0-37.0); MCV 85.5 fL (80.0-100.0); Mean Platelet Volume 8.7; Monocytes # (A) 0.3 k/uL (0-1.0); Monocytes % (A) 5 %; Neutrophils # (A) 5.1 k/uL (1.3-7.7); Neutrophils % (A) 77 %; Platelet Count 202 k/uL (150-450); RBC 4.14 m/uL (3.80-5.40); RDW 14.5 % (11.5-15.5); WBC 6.6 k/uL (3.8-10.6)
[2019-12-13 18:16] LABS: ALT 9 U/L (4-34); AST 15 U/L (14-36); African American GFR (CKD) >90 (>60 ml/min/1.73 sqM); Albumin 3.5 g/dL (3.5-5.0); Alkaline Phosphatase 54 U/L (38-126); Anion Gap 7 mmol/L; Blood Urea Nitrogen 10 mg/dL (7-17); Calcium 9.4 mg/dL (8.4-10.2); Carbon Dioxide 25 mmol/L (22-30); Chloride 103 mmol/L (98-107); Glucose 96 mg/dL (74-99); Non-African American GFR(CKD) >90 (>60 ml/min/1.73 sqM); Potassium 4.2 mmol/L (3.5-5.1); Sodium 135 mmol/L (137-145); Total Bilirubin 0.2 mg/dL (0.2-1.3); Total Protein 6.2 g/dL (6.3-8.2)
[2019-12-13 18:54] LABS: Amorphous Sediment,Urine Rare /hpf; Appearance,Urine Cloudy (Clear); Bilirubin,Urine Negative (Negative); Blood,Urine Negative (Negative); Color,Urine Yellow; Glucose,Urine (UA) Negative (Negative); Ketones,Urine Negative (Negative); Leukocyte Esterase,Urine Large (Negative); Mucus,Urine Occasional /hpf; Nitrite,Urine Negative (Negative); Protein,Urine Negative (Negative); RBC,Urine 4 /hpf (0-5); Specific Gravity,Urine 1.021 (1.001-1.035); Squamous Epithelial Cell,Urine 17 /hpf (0-4); Urobilinogen,Urine <2.0 mg/dL (<2.0); WBC,Urine 10 /hpf (0-5)
[2019-12-15 09:32] VITALS: BP 131/86; PULSE 82; RESP 17; TEMP 98.2
== END 2019-12-13 19:59 | disposition home or self-care (01) ==
LOC: EC 14:47
DX: O23.42 Unspecified infection of urinary tract in pregnancy, second trimester (principal); O99.89 Other specified diseases and conditions complicating pregnancy, childbirth and the puerperium; M79.605 Pain in left leg; Z3A.18 18 weeks gestation of pregnancy
CPT/HCPCS: 36415; 76805; 80053; 81001; 85025; 86850; 86900; 86901; 87086; 99284

== ENCOUNTER → 2020-01-08 | Outpatient (CLI) | payer OTHER ==
--- NOTE | 2020-01-09 06:54 | US ---
EXAMINATION TYPE: US OB anatomy transabd DATE OF EXAM: 01/08/2020 COMPARISON: US HISTORY: O36.62X0 large for dates anatomy per order TECHNIQUE: Transabdominal (TA) EXAM MEASUREMENTS: GESTATIONAL AGE / DATING Physician Established: (21 weeks/5 days) EDC: 05/19/20 Dates by LMP: unknown Dates by First Scan: (21 weeks/5 days) EDC: 05/19/20 Dates by Current Scan for: (21 weeks/5 days) EDC: 05/19/20 SURVEY IUP: Single PLACENTA: Anterior PREVIA: No previa NICKY: cm CERVICAL LENGTH (transabdominal: norm > 3.0cm): 3.9 cm BIOMETRY PRESENTATION: Breech LIE: BPD: 4.9 cm 20 weeks / 6 days HC: 18.2 cm 20 weeks / 5 days AC: 16.0 cm 21 weeks / 1 days FL: 3.6 cm 21 weeks / 3 days ESTIMATED WEIGHT IN GRAMS: 404 grams ESTIMATED WEIGHT IN LBS/OZ: 0 lbs. 14 oz. WEIGHT PERCENTAGE BASED ON ESTABLISHED DATE: 19 % HC/AC: 1.1 Normal FL/AC: 23% Normal HEART RATE: 163 bpm RHYTHM: Normal ANATOMY SEEN (within normal limits): * Lateral Vent (< 1 cm) 0.6 cm * Cisterna Magna (< 1.1 cm) 0.4 cm * Nuchal Fold (< 0.6 cm) 0.3 cm * Cerebellum (varies with age) 2.0 cm Choroid Plexus (bilateral) Midline Falx Cavus Septi Pellucidi Four Chamber Heart Outflow tracts: LVOT/RVOT Stomach Situs Nose / Lips Diaphragm Kidneys (bilateral) Bladder Cord Insert Three Vessel Cord Longitudinal Spine Transverse Spine Arms (bilateral) Legs (bilateral) ANATOMY NOT SEEN: Nose / Lips due to position IMPRESSION: Single viable intrauterine in the breech presentation. Estimated date of confinement is anshul roximately 05/19/2020. Limited evaluation of the nose and lips.
== END | disposition home or self-care (01) ==
LOC: RADUSWWP 15:32
PROVIDERS: ATTEND Obstetrics & Gynecology
DX: O32.1XX0 Maternal care for breech presentation, not applicable or unspecified (principal); Z3A.21 21 weeks gestation of pregnancy
CPT/HCPCS: 76811

== ENCOUNTER 2020-02-10 02:15 | Outpatient (CLI) | payer OTHER ==
[2020-02-10 03:24] VITALS: BP 109/58; PULSE 76; RESP 16; TEMP 96.9
--- NOTE | 2020-02-10 13:27 | P.MSEPDOC ---
Presenting Problems - Arrival Data Date of Arrival on Unit: 02/10/20 Time of Arrival on Unit: 02:15 Mode of Transport: Wheelchair - Complaint OB-Reason for Admission/Chief Complaint: Rule Out PROM Medical History - Information : 4 Para: 3 Term: 3 : 0 Abortions: Spontaneous or Elective: 0 Number of Living Children: 3 - Gestational Age Gestational Age by RAMY (wks/days): 26 Weeks and 3 Days Review of Systems - Review of Systems Constitutional: No problems Breast: No problems ENT: No problems Cardiovascular: No problems Respiratory: No problems Gastrointestinal: No problems Genitourinary: No problems Musculoskeletal: No problems Neurological: No problems Skin: No problems Vital Signs - Temperature Temperature: 96.9 F Temperature Source: Temporal Artery Scan - Pulse Right Pulse Rate: 76 Pulse Assessment Method: Automatic Cuff - Respirations Respiratory Rate: 16 Oxygen Delivery Method: Room Air O2 Sat by Pulse Oximetry: 98 - Blood Pressure Right Arm Blood Pressure: 109/58 Blood Pressure Mean: 75 Blood Pressure Source: Automatic Cuff Medical Screen Scoring (Pre) - Cervical Exam Dilation: 0 cm = 0 Membranes: Intact - Uterine Contractions Frequency: N/A Duration: N/A Intensity: N/A - Maternal Vital Signs Maternal Temperature: N/A Maternal Blood Pressure: N/A Signs of Preeclampsia: N/A Maternal Respirations: N/A - Maternal Trauma Maternal Trauma: N/A - Assessment - Baby A Baseline FHR: 150 Position: N/A Station: N/A - Total Score - Baby A Total Score - Baby A: 0 - Total Score - Baby B Total Score - Baby B: 0 - Total Score - Baby C Total Score - Baby C: 0 - Level of Risk - Baby A Level of Risk - Baby A: Low (0-5) - Level of Risk - Baby B Level of Risk - Baby B: Low (0-5) - Level of Risk - Baby C Level of Risk - Baby C: Low (0-5) Physician Notification (Pre) - Physician Notified Physician Notified Date: 02/10/20 Physician Notified Time: 02:50 New Order Received: Yes (discharge to keep appt as scheduled) Disposition - Disposition OB Disposition: Discharge to home Discharge Date: 02/10/20 Discharge Time: 03:00 I agree with the RN Medical Screening Exam: Yes Risk & Benefit of care provided described in d/c instruction: Yes Diagnosis: FALSE LABOR BEFORE 37 COMPLETED WEEKS OF GEST, SECOND TRI
== END 2020-02-10 03:00 | disposition home or self-care (01) ==
LOC: FBPOP 02:15
PROVIDERS: ATTEND Obstetrics & Gynecology
DX: O47.03 False labor before 37 completed weeks of gestation, third trimester (principal); Z3A.26 26 weeks gestation of pregnancy
CPT/HCPCS: 84112; 99213

== ENCOUNTER 2020-03-05 01:46 | Outpatient (CLI) | payer OTHER ==
[2020-03-05 02:44] VITALS: BP 113/67; PULSE 100; RESP 20; TEMP 98.6
[2020-03-05] MEDS ORDERED: ONDANSETRON 4 MG/2 ML VIAL IVP STA (02:44)
[2020-03-05] MEDS ORDERED: CITRIC ACID-SODIUM CITRATE 15 ML CUP PO PRN (02:44)
[2020-03-05] MEDS ORDERED: LACTATED RINGERS 1,000 ML IV SCH (02:45)
[2020-03-05] MEDS ORDERED: FAMOTIDINE 20 MG/2 ML VIAL IV ONE (02:46)
[2020-03-05 02:58] LABS: Basophils % (A) 0 %; Eosinophils # (A) 0.2 k/uL (0-0.7); Eosinophils % (A) 2 %; HCT 32.2 % (34.0-46.0); HGB 10.5 gm/dL (11.4-16.0); Lymphocytes # (A) 1.3 k/uL (1.0-4.8); Lymphocytes % (A) 16 %; MCHC 32.4 g/dL (31.0-37.0); MCV 83.2 fL (80.0-100.0); Mean Platelet Volume 8.5; Monocytes # (A) 0.5 k/uL (0-1.0); Monocytes % (A) 5 %; Neutrophils # (A) 6.3 k/uL (1.3-7.7); Neutrophils % (A) 75 %; Platelet Count 207 k/uL (150-450); RBC 3.88 m/uL (3.80-5.40); RDW 14.5 % (11.5-15.5); WBC 8.3 k/uL (3.8-10.6)
[2020-03-05 03:06] LABS: African American GFR (CKD) >90 (>60 ml/min/1.73 sqM); Anion Gap 6 mmol/L; Blood Urea Nitrogen 7 mg/dL (7-17); Calcium 8.9 mg/dL (8.4-10.2); Carbon Dioxide 22 mmol/L (22-30); Chloride 106 mmol/L (98-107); Glucose 109 mg/dL (74-99); Non-African American GFR(CKD) >90 (>60 ml/min/1.73 sqM); Potassium 3.8 mmol/L (3.5-5.1); Sodium 134 mmol/L (137-145)
[2020-03-05 03:13] LABS: Appearance,Urine Cloudy (Clear); Bilirubin,Urine Negative (Negative); Blood,Urine Negative (Negative); Color,Urine Yellow; Glucose,Urine (UA) Negative (Negative); Ketones,Urine Negative (Negative); Leukocyte Esterase,Urine Moderate (Negative); Mucus,Urine Occasional /hpf; Nitrite,Urine Negative (Negative); Protein,Urine Negative (Negative); RBC,Urine 1 /hpf (0-5); Specific Gravity,Urine 1.009 (1.001-1.035); Squamous Epithelial Cell,Urine 5 /hpf (0-4); Urobilinogen,Urine <2.0 mg/dL (<2.0); WBC,Urine 15 /hpf (0-5)
--- NOTE | 2020-03-06 16:47 | P.MSEPDOC ---
Presenting Problems - Arrival Data Date of Arrival on Unit: 03/05/20 Time of Arrival on Unit: 01:46 Mode of Transport: Wheelchair - Complaint OB-Reason for Admission/Chief Complaint: Acute Nausea/Vomiting, Pain, Dizziness, Signs/Symptoms UTI Comment: Pt c/o N/V/D dizziness and abdominal pain all day, states hx of anemia Medical History - Information : 4 Para: 3 Term: 3 : 0 Abortions: Spontaneous or Elective: 0 Number of Living Children: 3 - Gestational Age Gestational Age by RAMY (wks/days): 29 Weeks and 6 Days Review of Systems - Review of Systems Constitutional: No problems Breast: No problems ENT: No problems Cardiovascular: No problems Respiratory: No problems Gastrointestinal: Diarrhea Genitourinary: No problems Musculoskeletal: No problems Neurological: Dizziness Skin: No problems Vital Signs - Temperature Temperature: 98.6 F Temperature Source: Temporal Artery Scan - Pulse Right Supine Pulse Oximetery Pulse Rate: 100 Pulse Assessment Method: Pulse Oximetry - Respirations Respiratory Rate: 20 Oxygen Delivery Method: Room Air O2 Sat by Pulse Oximetry: 97 - Blood Pressure Right Arm Supine Blood Pressure: 113/67 Blood Pressure Mean: 82 Blood Pressure Source: Automatic Cuff Medical Screen Scoring (Pre) - Cervical Exam Dilation: Exam Deferred Effacement: Exam Deferred Membranes: Intact - Uterine Contractions Frequency: N/A Duration: N/A Intensity: N/A - Maternal Vital Signs Maternal Temperature: N/A Maternal Blood Pressure: N/A - Assessment - Baby A Baseline FHR: 135 Heart Rate - NICHD Category: Category I (Normal) = 0 NST: Reactive Position: N/A - Total Score - Baby A Total Score - Baby A: 0 - Total Score - Baby B Total Score - Baby B: 0 - Total Score - Baby C Total Score - Baby C: 0 - Level of Risk - Baby A Level of Risk - Baby A: Low (0-5) - Level of Risk - Baby B Level of Risk - Baby B: Low (0-5) - Level of Risk - Baby C Level of Risk - Baby C: Low (0-5) Physician Notification (Pre) - Physician Notified Physician Notified Date: 03/05/20 Physician Notified Time: 02:20 New Order Received: Yes - Notification Comment Comment: orders for CBC, UA, IV of LR, electrolyte panel, zofran, bicitra or pepcid 20 IV and call back with results Medical Screen Scoring (Post) - Cervical Exam Dilation: Exam Deferred Effacement: Exam Deferred Membranes: Intact - Uterine Contractions Frequency: N/A Duration: N/A Intensity: N/A - Maternal Vital Signs Maternal Temperature: N/A Maternal Blood Pressure: N/A Maternal Respirations: N/A - Pain Assessment Pain Scale Used: Numeric (1 - 10) Pain Intensity: 0 Pain Radiation Location: pain resolved Pain Behavior: None Exhibited - Maternal Trauma Maternal Trauma: N/A - Assessment - Baby A Heart Rate - NICHD Category: Category I (Normal) = 0 NST: Reactive Position: N/A - Total Score Total Score - Baby A: 0 Total Score - Baby B: 0 Total Score - Baby C: 0 - Post Treatment Level of Risk Post Treatment Level of Risk - Baby A: Low (0-5) Physician Notification (Post) - Physician Notified Physician Notified Date: 03/05/20 Physician Notified Time: 03:45 Physician/Practitioner Notified:: Dr Barrios Spoke With: Dr Barrios New Order Received: Yes - Notification Comment Comment: Gave orders to discharge to home with instructions Disposition - Disposition OB Disposition: Discharge to home Discharge Date: 03/05/20 Discharge Time: 04:00 I agree with the RN Medical Screening Exam: Yes Risk & Benefit of care provided described in d/c instruction: Yes Diagnosis: RELATED CONDITIONS, UNSPECIFIED, THIRD TRIMESTER
== END 2020-03-05 04:00 | disposition home or self-care (01) ==
LOC: FBPOP 01:46
PROVIDERS: ATTEND Obstetrics & Gynecology
DX: O26.93 Pregnancy related conditions, unspecified, third trimester (principal); Z3A.29 29 weeks gestation of pregnancy
CPT/HCPCS: 59025; 99214; 96361; 96374; 96375; 80048; 85025; 81001; J2405

== ENCOUNTER → 2020-03-18 | Outpatient (CLI) | payer OTHER ==
--- NOTE | 2020-03-18 12:27 | US ---
EXAMINATION TYPE: US OB >= 14 wk fetus DATE OF EXAM: 03/18/2020 COMPARISON: US 01/08/20 CLINICAL HISTORY: 29-year-old female O36.63X0 LARGE FOR DATES TECHNIQUE: Transabdominal (TA) FINDINGS: GESTATIONAL AGE / DATING Physician Established: (31 weeks/5 days) EDC: 05/15/20 Dates by LMP: LMP unknown Dates by First Scan (ultrasound of 01/08/2020): (31 weeks/1 days) EDC: 05/19/20 Dates by Current Scan: (30 weeks/4 days) EDC: 05/23/20 Beta HCG (if available): Not available at this time SURVEY IUP: Single PLACENTA: Anterior PREVIA: No Previa NICKY: 17.7 cm Normal CERVICAL LENGTH (transabdominal: norm > 3.0cm): 3.7 cm BIOMETRY PRESENTATION: Vertex BPD: 7.8 cm 31 weeks / 1 days HC: 28.4 cm 31 weeks / 1 days AC: 26.7 cm 30 weeks / 5 days FL: 5.9 cm 30 weeks / 5 days ESTIMATED WEIGHT IN GRAMS: 1651 grams ESTIMATED WEIGHT IN LBS/OZ: 3 lbs. 10 oz. WEIGHT PERCENTAGE BASED ON ESTABLISHED DATES: 15.6% (versus 19% on 01/08/2020) HC/AC: 1.1 Normal FL/AC: 22.1 Normal HEART RATE: 125 bpm RHYTHM: Normal IMPRESSION: Single live intrauterine with physician established gestational age of 31 weeks 5 days. Cur rent ultrasound biometry is smaller but concordant (30 weeks 4 days). As compared to the patient's ul trasound scan of 01/08/2020, there has been 4 days more growth than expected which is acceptable. EFW % has moved from 15.6% to the 19th percentile.
== END | disposition home or self-care (01) ==
LOC: RADUSWWP 10:14
PROVIDERS: ATTEND Obstetrics & Gynecology
DX: O36.63X0 Maternal care for excessive fetal growth, third trimester, not applicable or unspecified (principal); Z3A.30 30 weeks gestation of pregnancy
CPT/HCPCS: 76805

== ENCOUNTER 2020-04-04 13:12 | Outpatient (CLI) | payer OTHER ==
[2020-04-04 13:53] LABS: Appearance,Urine Cloudy (Clear); Bacteria,Urine Rare /hpf; Bilirubin,Urine Negative (Negative); Blood,Urine Negative (Negative); Color,Urine Yellow; Glucose,Urine (UA) Negative (Negative); Ketones,Urine Negative (Negative); Leukocyte Esterase,Urine Large (Negative); Mucus,Urine Occasional /hpf; Nitrite,Urine Negative (Negative); PH, Urine 6.5 (5.0-8.0); Protein,Urine Negative (Negative); RBC,Urine 1 /hpf (0-5); Specific Gravity,Urine 1.016 (1.001-1.035); Squamous Epithelial Cell,Urine 14 /hpf (0-4); Urobilinogen,Urine <2.0 mg/dL (<2.0); WBC,Urine 10 /hpf (0-5)
[2020-04-04 15:02] VITALS: BP 125/59; PULSE 78; RESP 18; TEMP 96.1
--- NOTE | 2020-04-04 16:15 | P.MSEPDOC ---
Presenting Problems - Arrival Data Date of Arrival on Unit: 04/04/20 Time of Arrival on Unit: 13:13 Mode of Transport: Wheelchair - Complaint OB-Reason for Admission/Chief Complaint: Pain Comment: cramping, pressure, vaginal pain. Lost mucous plug Medical History - Information : 4 Para: 3 Term: 3 : 0 Abortions: Spontaneous or Elective: 0 Number of Living Children: 3 - Gestational Age Gestational Age by RAMY (wks/days): 34 Weeks and 1 Days Review of Systems - Review of Systems Constitutional: No problems Breast: No problems ENT: No problems Cardiovascular: No problems Respiratory: No problems Gastrointestinal: No problems Genitourinary: No problems Musculoskeletal: No problems Neurological: No problems Skin: No problems Vital Signs - Temperature Temperature: 96.1 F Temperature Source: Temporal Artery Scan - Pulse Right Sitting Brachial Pulse Rate: 78 Pulse Assessment Method: Automatic Cuff - Respirations Respiratory Rate: 18 Oxygen Delivery Method: Room Air O2 Sat by Pulse Oximetry: 99 - Blood Pressure Right Arm Sitting Blood Pressure: 125/59 Blood Pressure Mean: 81 Blood Pressure Source: Automatic Cuff Medical Screen Scoring (Pre) - Cervical Exam Dilation: 0 cm = 0 - Uterine Contractions Frequency: N/A Duration: N/A Intensity: N/A - Maternal Vital Signs Maternal Temperature: N/A Maternal Blood Pressure: N/A Signs of Preeclampsia: N/A Maternal Respirations: N/A - Maternal Trauma Maternal Trauma: N/A - Assessment - Baby A Baseline FHR: 120 Heart Rate - NICHD Category: Category I (Normal) = 0 NST: Reactive Position: N/A Station: N/A - Total Score - Baby A Total Score - Baby A: 0 - Total Score - Baby B Total Score - Baby B: 0 - Total Score - Baby C Total Score - Baby C: 0 - Level of Risk - Baby A Level of Risk - Baby A: Low (0-5) - Level of Risk - Baby B Level of Risk - Baby B: Low (0-5) - Level of Risk - Baby C Level of Risk - Baby C: Low (0-5) Physician Notification (Pre) - Physician Notified Physician Notified Date: 04/04/20 Physician Notified Time: 14:30 New Order Received: Yes - Notification Comment Comment: Dc home after extended monitoring. FHR decel in triage. cervix closed/thick/high. encouraged rest, fluids and mat support belt. Disposition - Disposition OB Disposition: Discharge to home Discharge Date: 04/04/20 Discharge Time: 15:02 I agree with the RN Medical Screening Exam: Yes Risk & Benefit of care provided described in d/c instruction: Yes Diagnosis: FALSE LABOR BEFORE 37 COMPLETED WEEKS OF GEST, THIRD TRI
== END 2020-04-04 15:03 | disposition home or self-care (01) ==
LOC: FBPOP 13:12
PROVIDERS: ATTEND Obstetrics & Gynecology
DX: O47.03 False labor before 37 completed weeks of gestation, third trimester (principal); Z3A.34 34 weeks gestation of pregnancy
CPT/HCPCS: 59025; 81001; 99213

== ENCOUNTER → 2020-04-18 | Outpatient (CLI) | payer OTHER ==
--- NOTE | 2020-04-18 12:11 | US ---
EXAMINATION TYPE: US OB >= 14 wk fetus DATE OF EXAM: 04/18/2020 COMPARISON: Previous exam 03/18/2020 CLINICAL HISTORY: O36.63X0 Large for dates Large for dates TECHNIQUE: Transabdominal (TA) GESTATIONAL AGE / DATING Physician Established: (36 weeks/1 days) EDC: 05/15/2020 Dates by LMP: (36 weeks/1 days) EDC: 05/15/2020 Dates by First Scan: (30 weeks/4 days) EDC: 05/23/2020 Dates by Current Scan: (34 weeks/0 days) EDC: 05/30/2020 SURVEY IUP: Single PLACENTA: Anterior PREVIA: No Previa NICKY: 14 cm CERVICAL LENGTH (transabdominal: norm > 3.0cm): 4.7 cm BIOMETRY PRESENTATION: Vertex LIE: Longitudinal BPD: 8.1 cm 32 weeks / 4 days HC: 31.1 cm 34 weeks / 6 days AC: 31.0 cm 35 weeks / 0 days FL: 6.4 cm 33 weeks / 1 days ESTIMATED WEIGHT IN GRAMS: 2366 grams ESTIMATED WEIGHT IN LBS/OZ: 5 lbs. 3 oz. WEIGHT PERCENTAGE BASED ON ESTABLISHED DATES: 9% HC/AC: 1.0cm Normal FL/AC: 21% Normal HEART RATE: 140 bpm RHYTHM: Normal IMPRESSION: Limited survey. Single viable intrauterine corresponding to an ultrasound age 34 week s 5 days estimated date of delivery 05/25/2020
== END | disposition home or self-care (01) ==
LOC: RADUSWWP 09:34
PROVIDERS: ATTEND Obstetrics & Gynecology
DX: O36.63X0 Maternal care for excessive fetal growth, third trimester, not applicable or unspecified (principal); Z3A.34 34 weeks gestation of pregnancy; Z36.9 Encounter for antenatal screening, unspecified
CPT/HCPCS: 76805

== ENCOUNTER 2020-04-21 18:02 | Outpatient (CLI) | payer OTHER ==
[2020-04-21] MEDS ORDERED: INFLUENZA VACCINE (6 MOS+) 60 MCG/0.5 ML SYRINGE IM ONE (19:07)
[2020-04-21 19:13] VITALS: BP 114/70; PULSE 98; RESP 16
--- NOTE | 2020-04-25 07:39 | P.MSEPDOC ---
Presenting Problems - Arrival Data Date of Arrival on Unit: 04/21/20 Time of Arrival on Unit: 18:02 Mode of Transport: Ambulatory - Complaint OB-Reason for Admission/Chief Complaint: Possible Onset of Labor Comment: Pt c/o cramping, intermittent contractions, vaginal pressure. Medical History - Information : 4 Para: 3 Term: 3 : 0 Abortions: Spontaneous or Elective: 0 Number of Living Children: 3 - Gestational Age Gestational Age by RAMY (wks/days): 36 Weeks and 4 Days Review of Systems - Review of Systems Constitutional: No problems Breast: No problems ENT: No problems Cardiovascular: No problems Respiratory: No problems Gastrointestinal: No problems Genitourinary: No problems Musculoskeletal: No problems Neurological: No problems Skin: No problems Vital Signs - Pulse Right Pulse Rate: 98 Pulse Assessment Method: Automatic Cuff - Respirations Respiratory Rate: 16 Oxygen Delivery Method: Room Air O2 Sat by Pulse Oximetry: 97 - Blood Pressure Right Arm Blood Pressure: 114/70 Blood Pressure Mean: 84 Blood Pressure Source: Automatic Cuff Medical Screen Scoring (Pre) - Cervical Exam Dilation: 1-3 cm = 1 Effacement: Exam Deferred Membranes: Intact - Uterine Contractions Frequency: N/A - Maternal Vital Signs Maternal Temperature: N/A Maternal Blood Pressure: N/A Signs of Preeclampsia: N/A Maternal Respirations: N/A - Maternal Trauma Maternal Trauma: N/A - Assessment - Baby A Baseline FHR: 135 Heart Rate - NICHD Category: Category I (Normal) = 0 NST: Reactive Position: N/A Station: N/A - Total Score - Baby A Total Score - Baby A: 1 - Total Score - Baby B Total Score - Baby B: 1 - Total Score - Baby C Total Score - Baby C: 1 - Level of Risk - Baby A Level of Risk - Baby A: Low (0-5) - Level of Risk - Baby B Level of Risk - Baby B: Low (0-5) - Level of Risk - Baby C Level of Risk - Baby C: Low (0-5) Physician Notification (Pre) - Physician Notified Physician Notified Date: 04/21/20 Physician Notified Time: 18:46 New Order Received: Yes - Notification Comment Comment: Recheck patient 1 hour post last cervical check, if no cervical change, pt may DC home. Disposition - Disposition OB Disposition: Observe, Triage Discharge Date: 04/21/20 Discharge Time: 18:02 I agree with the RN Medical Screening Exam: Yes Risk & Benefit of care provided described in d/c instruction: Yes Diagnosis: FALSE LABOR BEFORE 37 COMPLETED WEEKS OF GEST, THIRD TRI
== END 2020-04-21 19:30 | disposition home or self-care (01) ==
LOC: FBPOP 18:02
PROVIDERS: ATTEND Obstetrics & Gynecology
DX: O47.03 False labor before 37 completed weeks of gestation, third trimester (principal); Z3A.36 36 weeks gestation of pregnancy
CPT/HCPCS: 59025; 99213

== ENCOUNTER 2020-04-24 06:15 | Inpatient (IN) | payer OTHER ==
[2020-04-24] MEDS ORDERED: AMPICILLIN 2,000 MG in SODIUM CHLORIDE 0.9% 100 ML IVPB STA (06:43)
[2020-04-24] MEDS ORDERED: METHYLERGONOVINE 0.2 MG/ML 1 ML AMP IM PRN (06:43)
[2020-04-24] MEDS ORDERED: LIDOCAINE 0.5% (PF) 5 MG/ML (50 ML SDV) SQ PRN (06:43)
[2020-04-24] MEDS ORDERED: OXYTOCIN 10 UNIT/ML 1 ML VIAL IM PRN (06:43)
[2020-04-24] MEDS ORDERED: CARBOPROST TROMETHAMINE 250 MCG/ML 1 ML AMP IM PRN (06:43)
[2020-04-24] MEDS ORDERED: TERBUTALINE 1 MG/ML VIAL SQ PRN (06:43)
[2020-04-24] MEDS ORDERED: OXYTOCIN 30 UNITS/500 ML NS 30 UNIT in SALINE 1 500ML.BAG IV SCH (06:45)
[2020-04-24] MEDS: LACTATED RINGERS 1,000 ML IV SCH ×2 (06:50→09:32)
[2020-04-24 07:11] LABS: Basophils % (A) 0 %; Eosinophils # (A) 0.2 k/uL (0-0.7); Eosinophils % (A) 2 %; HGB 10.8 gm/dL (11.4-16.0); Lymphocytes # (A) 1.3 k/uL (1.0-4.8); Lymphocytes % (A) 20 %; MCH 27.2 pg (25.0-35.0); MCHC 32.7 g/dL (31.0-37.0); MCV 83.1 fL (80.0-100.0); Mean Platelet Volume 8.9; Monocytes # (A) 0.3 k/uL (0-1.0); Monocytes % (A) 5 %; Neutrophils # (A) 4.6 k/uL (1.3-7.7); Neutrophils % (A) 71 %; Platelet Count 199 k/uL (150-450); RBC 3.97 m/uL (3.80-5.40); RDW 15.3 % (11.5-15.5); WBC 6.5 k/uL (3.8-10.6)
[2020-04-24] MEDS ORDERED: fentaNYL (PF) 50 MCG/ML 5 ML AMP ONE (09:10)
[2020-04-24] MEDS ORDERED: ROPIVACAINE 5MG/ML 20ML VIAL ONE (09:10)
[2020-04-24] MEDS ORDERED: SODIUM CHLORIDE 0.9% 100 ML BAG ONE (09:10)
[2020-04-24] MEDS ORDERED: ROPIVACAINE 100 MG, fentaNYL (PF) 200 MCG in SODIUM CHLORIDE 0.9% 76 ML EPIDURAL ONE (09:58)
[2020-04-24] MEDS: AMPICILLIN 1,000 MG in SODIUM CHLORIDE 0.9% 50 ML IVPB SCH ×2 (11:22→15:55)
--- NOTE | 2020-04-24 13:25 | P.HPOB ---
History of Present Illness H&P Date: 04/24/20 Chief Complaint: Intrauterine at Term: IUGR Medicine is a 29-year-old at 37 weeks 3 days gestation who arrives for induction of labor due to IUGR. Ultrasound last week revealed baby to be less than 10th percentile and after discussion she is opted for induction of labor. She is dilated to 2-3 cm 60% effaced and -3 station. Artificial rupture membranes was performed and clear fluid is noted. Her course had been unremarkable but the baby had been measuring small cysts approximately 32 weeks when the baby was in the 16th tonight. Percentile. She has no for her history of IUGR babies. Pertinent labs O+ blood type, Rh and it was negative, rubella was immune, hepatitis B surface antigen/RPR/HIV were all negative group B strep was positive. We'll plan group B strep prophylaxis and expect spontaneous vaginal delivery. She anticipates use of epidural for analgesia. Past Medical History Past Medical History: No Reported History History of Any Multi-Drug Resistant Organisms: None Reported Past Surgical History: No Surgical Hx Reported Past Anesthesia/Blood Transfusion Reactions: No Reported Reaction Past Psychological History: No Psychological Hx Reported Smoking Status: Former smoker Past Alcohol Use History: None Reported Past Drug Use History: None Reported - Past Family History Father Family Medical History: No Reported History Medications and Allergies Home Medications Medication Instructions Recorded Confirmed Type No Known Home Medications 04/24/20 04/24/20 History Allergies Allergy/AdvReac Type Severity Reaction Status Date / Time No Known Allergies Allergy Verified 04/21/20 18:54 Exam Osteopathic Statement: *. No significant issues noted on an osteopathic structural exam other than those noted in the History and Physical/Consult. Vital Signs Temp Pulse Resp BP 04/24/20 07:44 97.6 F 71 16 134/64 Intake and Output 04/23/20 04/24/20 04/24/20 22:59 06:59 14:59 Other: Weight 97.069 kg 97.069 kg - OBG Physical Exam Breast: both: normal (no masses) Abdomen: bowel sounds normal, no diffuse tenderness, no bruit present, no guarding noted, no hepatomegaly, no splenomegaly, no mass Vulva: both: normal Vagina: normal moisture, no discharge Cervix: no lesion, no discharge Uterus: normal size, normal contour Adnexa: both: normal Anus/Rectum: normal perianal skin, no rectal mass, no hemorrhoids, heme negative Results Result Diagrams: 04/24/20 06:40 Abnormal Lab Results - Last 24 Hours (Table) 04/24/20 Range/Units 06:40 Hgb 10.8 L (11.4-16.0) gm/dL Hct 33.0 L (34.0-46.0) %
--- NOTE | 2020-04-24 13:27 | P.PROBDLV ---
Vaginal Delivery Note - . Vaginal Delivery Note: Patient progressed to complete and pushing with spontaneous vaginal delivery of a viable female over intact perineum. Following delivery of the head from left occiput anterior position anterior posterior shoulders were easily delivered and baby's mouth and nares were bulb suctioned. Baby was then placed on mother's abdomen where the umbilical cord was allowed to pulsate for 30 seconds prior to clamping and cutting. Nursery personnel was present and assumed care. Placenta was then attempted to be delivered and the cord was noted to pop offs despite very gentle traction. Due to placenta retained I did do a partial manual removal of the placenta but was felt on evaluation following the removal that it appeared to be completely intact one exam was done to verify no other placental pieces. Inspection of the placenta reveals what appears to be a velamentous insertion with a very advanced placental bed. It was sent to pathology for evaluation. scores were 9 and 9 at one and 5 minutes respectively and the weight was 5 lbs. 8 oz. Both mother and baby are currently stable following delivery.
[2020-04-24] MEDS ORDERED: HYDROCORTISONE 2.5% RECTAL CREAM 30 GM TUBE RECTAL PRN (16:05)
[2020-04-24] MEDS ORDERED: ACETAMINOPHEN TAB 325 MG TAB PO PRN (16:05)
[2020-04-24] MEDS ORDERED: LANOLIN CREAM 5 GM TUBE TOPICAL PRN (16:05)
[2020-04-24] MEDS ORDERED: ZOLPIDEM 5 MG TAB PO PRN (16:05)
[2020-04-24] MEDS ORDERED: diphenhydrAMINE 25 MG CAP PO PRN (16:05)
[2020-04-24] MEDS ORDERED: BENZOCAINE/MENTHOL SPRAY 1 GM/SPRAY AEROSOL TOPICAL PRN (16:05)
[2020-04-24] MEDS ORDERED: SIMETHICONE 80 MG CHEWABLE PO PRN (16:05)
[2020-04-24] MEDS ORDERED: diphenhydrAMINE 50 MG CAP PO PRN (16:05)
[2020-04-24] MEDS: IBUPROFEN 600 MG TAB PO PRN (20:39)
[2020-04-24] MEDS: SENNOSIDES-DOCUSATE SODIUM 1 EACH TAB PO SCH (20:40)
[2020-04-25] MEDS: IBUPROFEN 600 MG TAB PO PRN (06:11)
[2020-04-25 07:07] LABS: Basophils % (A) 0 %; Eosinophils # (A) 0.2 k/uL (0-0.7); Eosinophils % (A) 2 %; HCT 32.1 % (34.0-46.0); HGB 10.4 gm/dL (11.4-16.0); Lymphocytes # (A) 1.4 k/uL (1.0-4.8); Lymphocytes % (A) 16 %; MCH 27.2 pg (25.0-35.0); MCHC 32.5 g/dL (31.0-37.0); MCV 83.8 fL (80.0-100.0); Mean Platelet Volume 9.1; Monocytes # (A) 0.4 k/uL (0-1.0); Monocytes % (A) 4 %; Neutrophils # (A) 6.5 k/uL (1.3-7.7); Neutrophils % (A) 76 %; Platelet Count 176 k/uL (150-450); RBC 3.82 m/uL (3.80-5.40); RDW 15.5 % (11.5-15.5); WBC 8.6 k/uL (3.8-10.6)
[2020-04-25 07:37] VITALS: RESP 16
[2020-04-25] MEDS: SENNOSIDES-DOCUSATE SODIUM 1 EACH TAB PO SCH (08:36)
--- NOTE | 2020-04-25 08:59 | P.DS ---
Providers Date of admission: 04/24/20 06:26 Expected date of discharge: 04/25/20 Attending physician: Cricket Barrios Primary care physician: Stated None Hospital Course: Patient is doing very well post day 1. She is ambulating, voiding, and tolerating her diet. She voices no complaints and is requesting discharge to home today. Discharge instructions were thoroughly reviewed and all questions were answered for her prior to discharge. On physical exam her vital signs are stable and afebrile. Heart regular, lungs clear, extremities without pain. Abdomen soft uterus is firm and lochia is reported to be light. We'll plan to provide prescription for Motrin and she will follow up with me in 6 weeks. All other questions are answered for her at this time and she is stable for discharge at this time. Patient Condition at Discharge: Good Plan - Discharge Summary New Discharge Prescriptions: New Ibuprofen [Motrin] 600 mg PO Q6HR PRN #30 tab PRN Reason: Pain Discharge Medication List Ibuprofen [Motrin] 600 mg PO Q6HR PRN #30 tab 04/25/20 [Rx] Follow up Appointment(s)/Referral(s): Cricket Barrios DO [Doctor of Osteopathic Medicine] - 6 Weeks Activity/Diet/Wound Care/Special Instructions: no heavy lifting, limit stairs and driving, and pelvic rest. If any high tempera tures, heavy bleeding, or severe pain call my office Discharge Disposition: HOME SELF-CARE
[2020-04-25 11:59] VITALS: BP 117/76; PULSE 67; TEMP 98
== END 2020-04-25 15:00 | disposition home or self-care (01) | DRG 807 ==
LOC: 4FBP 06:26
PROVIDERS: ADMIT Obstetrics & Gynecology; ATTEND Obstetrics & Gynecology
PROC: 10D17Z9 Manual Extraction of Products of Conception, Retained, Via Natural or Artificial Opening (ICD-10-PCS; principal; 2020-04-24)
PROC: 10E0XZZ Delivery of Products of Conception, External Approach (ICD-10-PCS; principal; 2020-04-24)
PROC: 10907ZC Drainage of Amniotic Fluid, Therapeutic from Products of Conception, Via Natural or Artificial Opening (ICD-10-PCS; principal; 2020-04-24)
DX: O36.5930 Maternal care for other known or suspected poor fetal growth, third trimester, not applicable or unspecified (principal); Z37.0 Single live birth; O73.0 Retained placenta without hemorrhage; O99.824 Streptococcus B carrier state complicating childbirth; O43.123 Velamentous insertion of umbilical cord, third trimester; Z3A.37 37 weeks gestation of pregnancy; Z87.891 Personal history of nicotine dependence
CPT/HCPCS: 85025; 86850; 86900; 86901

== ENCOUNTER 2020-07-18 11:23 | Day surgery (SDC) | payer OTHER ==
--- NOTE | 2020-07-16 18:41 | P.HPOB ---
History of Present Illness H&P Date: 07/16/20 Chief Complaint: Family planning Madonna is a 29-year-old female who is completed her family planning and desires permanent sterilization. Risks/benefits/alternatives to laps scopic tubal occlusion with the scopes were reviewed with the patient in detail and all questions were answered for her prior to proceeding to the operative room. Risks did include but were not limited to bleeding and infection, damage to bladder or bowel, vascular injuries, nerve injuries, potential need for other surgeries. Past Medical History Past Medical History: No Reported History History of Any Multi-Drug Resistant Organisms: None Reported Past Surgical History: No Surgical Hx Reported Past Anesthesia/Blood Transfusion Reactions: No Reported Reaction Past Psychological History: No Psychological Hx Reported Smoking Status: Former smoker Past Alcohol Use History: None Reported Past Drug Use History: None Reported - Past Family History Father Family Medical History: No Reported History Medications and Allergies Home Medications Medication Instructions Recorded Confirmed Type Ibuprofen [Motrin] 600 mg PO Q6HR PRN #30 tab 04/25/20 Rx Allergies Allergy/AdvReac Type Severity Reaction Status Date / Time No Known Allergies Allergy Verified 04/21/20 18:54 Exam Osteopathic Statement: *. No significant issues noted on an osteopathic structural exam other than those noted in the History and Physical/Consult. - OBG Physical Exam Breast: both: normal (no masses) Abdomen: bowel sounds normal, no diffuse tenderness, no bruit present, no guarding noted, no hepatomegaly, no splenomegaly, no mass Vulva: both: normal Vagina: normal moisture, no discharge Cervix: no lesion, no discharge Uterus: normal size, normal contour Adnexa: both: normal Anus/Rectum: normal perianal skin, no rectal mass, no hemorrhoids, heme negative
[2020-07-17 08:30] VITALS: BMI 39.1
[~2020-07-18 11:23] MED LIST: DEXAMETHASONE SOD PHOSPHATE 4 MG/ML 1 ML VIAL IV ONE; HYDROmorphone 0.5 MG/0.5 ML SYRINGE IVP PRN; LACTATED RINGERS 1,000 ML IV SCH; ONDANSETRON 4 MG/2 ML VIAL IVP ONE; Pre Op ABX Message 1 EACH MISC MISCELLANE ONE
[2020-07-18] MEDS ORDERED: HYDROmorphone 0.5 MG/0.5 ML SYRINGE IVP ONE ×3 (12:15→14:41)
[2020-07-18] MEDS ORDERED: LIDOCAINE 1% (10MG/ML) FOR IV START INTRADERMA ONE (12:19)
[2020-07-18] MEDS ORDERED: diphenhydrAMINE 50 MG/ML 1 ML VIAL IVP ONE (12:24)
[2020-07-18] MEDS ORDERED: PROPOFOL 10 MG/ML 20 ML VIAL IV ONE (13:26)
[2020-07-18] MEDS ORDERED: MIDAZOLAM 2 MG/2 ML VIAL ONE (13:26)
[2020-07-18] MEDS ORDERED: SUCCINYLCHOLINE CHLORIDE 100 MG/5 ML SYR IV ONE (13:26)
[2020-07-18] MEDS ORDERED: KETOROLAC 15 MG/ML 1 ML VIAL ONE (13:26)
[2020-07-18] MEDS ORDERED: GLYCOPYRROLATE 0.2 MG/ML 2 ML VIAL ONE (13:26)
[2020-07-18] MEDS ORDERED: NEOSTIGMINE 1 MG/ML 10 ML VIAL ONE (13:26)
[2020-07-18] MEDS ORDERED: ROCURONIUM 10 MG/ML (10 ML VIAL) IV ONE (13:26)
[2020-07-18] MEDS ORDERED: fentaNYL (PF) 50 MCG/ML 2 ML AMP ONE (13:26)
[2020-07-18] MEDS ORDERED: LIDOCAINE 1% INJ 10MG/ML (20 ML MDV) ONE (13:26)
[2020-07-18] MEDS ORDERED: BUPIVACAINE (PF) 0.25% 30 ML VIAL SQ ONE (13:29)
--- NOTE | 2020-07-18 14:12 | P.OP ---
Date of Procedure: 07/18/20 Preoperative Diagnosis: Family planning Postoperative Diagnosis: Same Procedure(s) Performed: Laparoscopic tubal occlusion with Filshie clips Anesthesia: JUANITO, local Surgeon: Cricket Barrios Estimated Blood Loss (ml): 3 IV fluids (ml): 400 Pathology: none sent Condition: stable Disposition: same day Operative Findings: Normal female pelvic anatomy Description of Procedure: Patient was taken to the operating suite where a general anesthetic was found be adequate. She was prepped and draped in the normal sterile fashion and placed in the dorsal lithotomy position. Initially a speculum was inserted into the vagina and the anterior lip of the cervix identified and grasped with a's tooth tenaculum. Uterus is then sounded to 8 cm and a manipulator was inserted without difficulty. Other incidents were then removed and a rubber catheter was used to drain the bladder of urine. Once this was completed gloves were changed and attention was turned to the abdominal portion procedure where 3 mL of quarter percent Marcaine was injected periumbilically. Through this injected anesthetic a 5 mm skin incision was made. Trocar and sleeve were then inserted under direct visualization through the optical trocar. Once peritoneal placement was assured gas was allowed to fully insufflate the abdomen and patient was then placed in steep Trendelenburg position. A second port and sleeve were then inserted through an 8 mm skin incision 3 cm above the pubic symphysis in the midline. This was also inserted under direct visualization. Once this was accomplished pelvic anatomy was evaluated first the right fallopian tube than left fallopian tube had a Filshie clip applied 2 cm from uterine cornu. On inspection however, the right fallopian tube did not appear completely occluded therefore a second Filshie clip was applied distal to the initial one with excellent occlusion noted at this point. All instruments were then removed. Gas was allowed to expel from the abdomen 5 deep breaths were provided. 4-0 Vicryl was then used to close incision subcuticularly and another 7 mL of quarter percent Marcaine was injected around these incisions. Instrument was then removed from the vagina. Sponge, lap, needle counts were all correct 2. Patient was then taken to the recovery room in stable condition Plan - Discharge Summary Discharge Rx Participant: No New Discharge Prescriptions: New Ibuprofen [Motrin] 600 mg PO Q6HR PRN #30 tab PRN Reason: Pain HYDROcodone/APAP 5-325MG [[place] 5-325] 1 tab PO Q4HR PRN #30 tab PRN Reason: Pain Discharge Medication List HYDROcodone/APAP 5-325MG [[place] 5-325] 1 tab PO Q4HR PRN #30 tab 07/18/20 [Rx] Ibuprofen [Motrin] 600 mg PO Q6HR PRN #30 tab 07/18/20 [Rx] Follow up Appointment(s)/Referral(s): Cricket Barrios DO [Doctor of Osteopathic Medicine] - 2 Weeks Activity/Diet/Wound Care/Special Instructions: No heavy lifting, limit stairs and driving, and pelvic rest. If any high temperatures, heavy bleeding, or severe pain call my office. No tub baths for 2 weeks but showering is fine Discharge Disposition: HOME SELF-CARE
[2020-07-18 14:24] VITALS: TEMP 97.8
[2020-07-18] MEDS ORDERED: MEPERIDINE 50 MG/ML SYRINGE IVP ONE ×2 (14:52→15:07)
[2020-07-18 15:10] VITALS: RESP 16
[2020-07-18] MEDS ORDERED: HYDROcodone/APAP 5-325MG 1 EACH TAB ONE (15:43)
[2020-07-18] MEDS ORDERED: HYDROcodone/APAP 5-325MG 1 EACH TAB PO ONE (15:45)
[2020-07-18 16:10] VITALS: BP 102/67; PULSE 66
== END 2020-07-18 17:05 | disposition home or self-care (01) ==
LOC: OR 11:23
PROVIDERS: ATTEND Obstetrics & Gynecology
DX: Z30.2 Encounter for sterilization (principal); Z87.891 Personal history of nicotine dependence; E66.9 Obesity, unspecified; Z68.39 Body mass index [BMI] 39.0-39.9, adult
CPT/HCPCS: 81025; 58671; J2250; J1200; J1100; J2710; J2175; J2405; J2001; J3010; J1885; J0330; J2704; J1170

== ENCOUNTER 2020-12-08 03:15 | Emergency (ER) | payer OTHER ==
[2020-12-08 03:22] VITALS: PULSE 80; RESP 20; TEMP 97.6
[2020-12-08] MEDS ORDERED: DIPH,PERTUS(ACELL)TETVAC-LF 0.5 ML VIAL IM ONE (03:39)
[2020-12-08] MEDS ORDERED: LIDOCAINE 1% INJ 10MG/ML (20 ML MDV) SQ ONE (03:39)
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
== END 2020-12-08 04:26 | disposition home or self-care (01) ==
LOC: EC 03:15
DX: S01.81XA Laceration without foreign body of other part of head, initial encounter (principal); Z23 Encounter for immunization; W01.0XXA Fall on same level from slipping, tripping and stumbling without subsequent striking against object, initial encounter; Y92.009 Unspecified place in unspecified non-institutional (private) residence as the place of occurrence of the external cause
CPT/HCPCS: 90715; 99282; 12013; 90471; J2001

== ENCOUNTER 2021-12-06 23:05 | Emergency (ER) | payer OTHER ==
[2021-12-06 23:17] VITALS: BP 120/73
[2021-12-06] MEDS ORDERED: HYDROcodone/APAP 5-325MG 1 EACH TAB PO STA (23:36)
[2021-12-06] MEDS ORDERED: LIDOCAINE 1%-EPI 1:100,000 20 ML VIAL SQ ONE (23:36)
[2021-12-06] MEDS ORDERED: DIPH,PERTUS(ACELL)TETVAC-LF 0.5 ML VIAL IM ONE (23:37)
[2021-12-07] MEDS ORDERED: ACET/COD 300 MG/30 MG STARTER PACK 6 TAB BTL PO STA (00:44)
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
[2021-12-07 01:05] VITALS: PULSE 102; RESP 18; TEMP 98.5
== END 2021-12-07 01:02 | disposition home or self-care (01) ==
LOC: EC 23:05
DX: S41.119A Laceration without foreign body of unspecified upper arm, initial encounter (principal); Z23 Encounter for immunization; W25.XXXA Contact with sharp glass, initial encounter
CPT/HCPCS: 12001; 90471; 90715; 99282

== ENCOUNTER 2024-05-06 21:32 | Emergency (ER) | payer OTHER ==
[2024-05-06 21:37] VITALS: RESP 18; TEMP 98.4
[2024-05-06] MEDS: SODIUM CHLORIDE 0.9% 1,000 ML IV STA (22:33)
--- NOTE | 2024-05-06 22:41 | ED ---
Abdominal Pain HPI - General Chief Complaint: Abdominal Pain Stated Complaint: Pelvic Pain Time Seen by Provider: 05/06/24 21:44 Source: patient, RN notes reviewed Mode of arrival: ambulatory Limitations: no limitations - History of Present Illness Initial Comments: this is a 33 year old female, [id number], with no significant past medical history presents emergency room chief complaint of pelvic pain for the past 3 hours that is described as a pressure and stabbing sensation. Patient states that she normally has a very regular menstrual cycle however this past month her menstrual cycle lasted for approximately 10 days and ended on Wednesday. States that this afternoon she went to use the restroom when she was wiping she noticed that there was bright red blood on the toilet paper that was coming vaginally. States that after she began to experience pelvic pain. She denies history of ovarian cysts or current contraceptive use. Patient states that she had her tubes tied. She denies nausea, vomiting, diarrhea, constipation, urinary complaints, fevers or chills. Of note, patient has been on injectable weight loss medication, Wegovy, but has not taken this medication in the past 2 weeks. - Related Data Previous Rx's Medication Instructions Recorded HYDROcodone/APAP 5-325MG [[place] 1 tab PO Q4HR PRN #30 tab 07/18/20 5-325] Ibuprofen [Motrin] 600 mg PO Q6HR PRN #30 tab 07/18/20 Allergies Allergy/AdvReac Type Severity Reaction Status Date / Time No Known Allergies Allergy Verified 05/06/24 21:37 Review of Systems ROS Statement: Those systems with pertinent positive or pertinent negative responses have been documented in the HPI. ROS Other: All systems not noted in ROS Statement are negative. Past Medical History Past Medical History: No Reported History Additional Past Medical History / Comment(s): breast feeding. History of Any Multi-Drug Resistant Organisms: None Reported Past Surgical History: Tubal Ligation Additional Past Surgical History / Comment(s): EGD Past Anesthesia/Blood Transfusion Reactions: No Reported Reaction Past Psychological History: Anxiety Smoking Status: Never smoker Past Alcohol Use History: Occasional Past Drug Use History: None Reported - Past Family History Father Family Medical History: No Reported History General Exam Limitations: no limitations Eye exam: Present: normal appearance, PERRL, EOMI. Absent: scleral icterus, conjunctival injection, periorbital swelling Neck exam: Present: normal inspection. Absent: tenderness, meningismus, lymphadenopathy Respiratory exam: Present: normal lung sounds bilaterally. Absent: respiratory distress, wheezes, rales, rhonchi, stridor Cardiovascular Exam: Present: regular rate, normal rhythm, normal heart sounds. Absent: systolic murmur, diastolic murmur, rubs, gallop, clicks GI/Abdominal exam: Present: soft, tenderness (lower pelvic), normal bowel sounds. Absent: distended, guarding, rebound, rigid Extremities exam: Present: normal inspection, full ROM, normal capillary refill. Absent: tenderness, pedal edema, joint swelling, calf tenderness Back exam: Present: normal inspection Skin exam: Present: warm, dry, intact, normal color. Absent: rash Course Vital Signs 05/06/24 05/06/24 21:34 23:41 Temperature 98.4 F Pulse Rate 75 69 Respiratory 18 18 Rate Blood Pressure 134/87 119/80 O2 Sat by Pulse 99 99 Oximetry Medical Decision Making - Medical Decision Making Was pt. sent in by a medical professional or institution (Dr. PA, GLASS LAMINATING OPERATOR, urgent care, hospital, or fpc...) When possible be specific @ -No Did you speak to anyone other than the patient for history (EMS, parent, family, police, friend...)? What history was obtained from this source @ -No Did you review nursing and triage notes (agree or disagree)? Why? @ -I reviewed and agree with nursing and triage notes Were old charts reviewed (outside hosp., previous admission, EMS record, old EKG, old radiological studies, urgent care reports/EKG's, fpc records)? Report findings @ -No old charts were reviewed Differential Diagnosis (chest pain, altered mental status, abdominal pain women, abdominal pain men, vaginal bleeding, weakness, fever, dyspnea, syncope, headache, dizziness, GI bleed, back pain, seizure, CVA, palpatations, mental health, musculoskeletal)? @ -Differential Abdominal Pain Women: Appendicitis, Cholecystitis, diverticulosis, ischemic bowel, pancreatitis, hepatitis, UTI, gastroenteritis, AAA, incarcerated hernia, bowel obstruction, constipation, inflammatory bowel, hepatitis, peptic ulcer disease, splenic infarction, perforated viscus, vulvitis, ovarian torsion, PID, kidney stone, meg centa abruption, this is not meant to be an all-inclusive list EKG interpreted by me (3pts min.). @ -None X-rays interpreted by me (1pt min.). @ -None done CT interpreted by me (1pt min.). @ -None done U/S interpreted by me (1pt. min.). @ -Transvaginal ultrasound reveals no acute findings in the pelvis What testing was considered but not performed or refused? (CT, X-rays, U/S, labs)? Why? @ -None What meds were considered but not given or refused? Why? @ -None Did you discuss the management of the patient with other professionals (professionals i.e. , PA, GLASS LAMINATING OPERATOR, lab, RT, psych nurse, social and political studies professor, primary counselor, teacher, marketing and communications officer, rn case mgr)? Give summary @ -No Was smoking cessation discussed for >3mins.? @ -No Was critical care preformed (if so, how long)? @ -No Were there social determinants of health that impacted care today? How? (Homelessness, low income, unemployed, alcoholism, drug addiction, transportation, low edu. Level, literacy, decrease access to med. care, usp, rehab)? @ -No Was there de-escalation of care discussed even if they declined (Discuss DNR or withdrawal of care, Hospice)? DNR status @ -No What co-morbidities impacted this encounter? (DM, HTN, Smoking, COPD, CAD, Cancer, CVA, ARF, Chemo, Hep., AIDS, mental health diagnosis, sleep apnea, morbid obesity)? @ -None Was patient admitted / discharged? Hospital course, mention meds given and route, prescriptions, significant lab abnormalities, going to OR and other pertinent info. @ -Discharge. 33-year-old female with pelvic pain and abnormal uterine bleeding. On my evaluation of the patient she is resting comfortably no signs acute distress. Her vitals are stable. Patient noted to have tenderness palpation of the pelvis with no signs of rebound tenderness or rigidity. Patient is provided with pain medications and fluids and evaluated via laboratory studies and ultrasound to rule out pelvic pathology. She is in agreement this plan. Laboratory studies are unremarkable, hCG negative, urinalysis no signs of infection. Transvaginal ultrasound no evidence for acute process. Patient is relayed information from today's findings. Discussed that symptoms secondary to abnormal uterine bleeding or menstrual cycle. Recommend that she follow-up with her hardness tester for further evaluation and continue to take Tylenol Motrin as needed for pain relief. Discussed with Dr. Prince Undiagnosed new problem with uncertain prognosis? @ -No Drug Therapy requiring intensive monitoring for toxicity (Heparin, Nitro, Insulin, Cardizem)? @ -No Were any procedures done? @ -No Diagnosis/symptom? @ -pelvic pain, uterine bleeding Acute, or Chronic, or Acute on Chronic? @ -acute Uncomplicated (without systemic symptoms) or Complicated (systemic symptoms)? @ -uncomplicated Side effects of treatment? @ -No Exacerbation, Progression, or Severe Exacerbation? @ -No Poses a threat to life or bodily function? How? (Chest pain, USA, SC, pneumonia, PE, COPD, DKA, ARF, appy, cholecystitis, CVA, Diverticulitis, Homicidal, Suicidal, threat to staff... and all critical care pts) @ -No - Lab Data Result diagrams: 05/06/24 22:25 05/06/24 22:25 Lab Results 05/06/24 05/06/24 05/06/24 Range/Units 22:25 22:25 22:25 WBC 8.1 (3.8-10.6) k/uL RBC 4.48 (3.80-5.40) m/uL Hgb 12.8 (11.4-16.0) gm/dL Hct 39.7 (34.0-46.0) % MCV 88.6 (80.0-100.0) fL MCH 28.7 (25.0-35.0) pg MCHC 32.4 (31.0-37.0) g/dL RDW 13.2 (11.5-15.5) % Plt Count 235 (150-450) k/uL MPV 7.6 Neutrophils % 67 % Lymphocytes % 24 % Monocytes % 5 % Eosinophils % 2 % Basophils % 1 % Neutrophils # 5.4 (1.3-7.7) k/uL Lymphocytes # 1.9 (1.0-4.8) k/uL Monocytes # 0.4 (0-1.0) k/uL Eosinophils # 0.2 (0-0.7) k/uL Basophils # 0.0 (0-0.2) k/uL PT 9.5 L (10.0-12.5) sec INR 0.8 (<1.2) APTT 26.8 (22.0-30.0) sec Sodium (137-145) mmol/L Potassium (3.5-5.1) mmol/L Chloride (98-107) mmol/L Carbon Dioxide (22-30) mmol/L Anion Gap mmol/L BUN (7-17) mg/dL Creatinine (0.52-1.04) mg/dL Est GFR (CKD-EPI)AfAm (>60 ml/min/1.73 sqM) Est GFR (CKD-EPI)NonAf (>60 ml/min/1.73 sqM) Glucose (74-99) mg/dL Calcium (8.4-10.2) mg/dL Total Bilirubin (0.2-1.3) mg/dL AST (14-36) U/L ALT (4-34) U/L Alkaline Phosphatase (38-126) U/L Total Protein (6.3-8.2) g/dL Albumin (3.5-5.0) g/dL Lipase (23-300) U/L HCG, Quant mIU/mL Urine Color Light Yellow Urine Appearance Clear (Clear) Urine pH 6.0 (5.0-8.0) Ur Specific [place] 1.029 (1.001-1.035) Urine Protein Negative (Negative) Urine Glucose (UA) Negative (Negative) Urine Ketones Negative (Negative) Urine Blood Large H (Negative) Urine Nitrite Negative (Negative) Urine Bilirubin Negative (Negative) Urine Urobilinogen <2.0 (<2.0) mg/dL Ur Leukocyte Esterase Negative (Negative) Urine RBC 3 (0-5) /hpf Urine WBC 4 (0-5) /hpf Ur Squamous Epith Cells 5 H (0-4) /hpf Amorphous Sediment Rare H (None) /hpf Hyaline Casts 1 (0-2) /lpf Urine Mucus Moderate H (None) /hpf 05/06/24 Range/Units 22:25 WBC (3.8-10.6) k/uL RBC (3.80-5.40) m/uL Hgb (11.4-16.0) gm/dL Hct (34.0-46.0) % MCV (80.0-100.0) fL MCH (25.0-35.0) pg MCHC (31.0-37.0) g/dL RDW (11.5-15.5) % Plt Count (150-450) k/uL MPV Neutrophils % % Lymphocytes % % Monocytes % % Eosinophils % % Basophils % % Neutrophils # (1.3-7.7) k/uL Lymphocytes # (1.0-4.8) k/uL Monocytes # (0-1.0) k/uL Eosinophils # (0-0.7) k/uL Basophils # (0-0.2) k/uL PT (10.0-12.5) sec INR (<1.2) APTT (22.0-30.0) sec Sodium 139 (137-145) mmol/L Potassium 4.1 (3.5-5.1) mmol/L Chloride 106 (98-107) mmol/L Carbon Dioxide 25 (22-30) mmol/L Anion Gap 8 mmol/L BUN 16 (7-17) mg/dL Creatinine 0.93 (0.52-1.04) mg/dL Est GFR (CKD-EPI)AfAm >90 (>60 ml/min/1.73 sqM) Est GFR (CKD-EPI)NonAf 81 (>60 ml/min/1.73 sqM) Glucose 86 (74-99) mg/dL Calcium 9.1 (8.4-10.2) mg/dL Total Bilirubin 0.3 (0.2-1.3) mg/dL AST 25 (14-36) U/L ALT 21 (4-34) U/L Alkaline Phosphatase 72 (38-126) U/L Total Protein 6.9 (6.3-8.2) g/dL Albumin 4.2 (3.5-5.0) g/dL Lipase 71 (23-300) U/L HCG, Quant <2.4 mIU/mL Urine Color Urine Appearance (Clear) Urine pH (5.0-8.0) Ur Specific [place] (1.001-1.035) Urine Protein (Negative) Urine Glucose (UA) (Negative) Urine Ketones (Negative) Urine Blood (Negative) Urine Nitrite (Negative) Urine Bilirubin (Negative) Urine Urobilinogen (<2.0) mg/dL Ur Leukocyte Esterase (Negative) Urine RBC (0-5) /hpf Urine WBC (0-5) /hpf Ur Squamous Epith Cells (0-4) /hpf Amorphous Sediment (None) /hpf Hyaline Casts (0-2) /lpf Urine Mucus (None) /hpf Disposition Clinical Impression: Pelvic pain, Abnormal uterine bleeding Disposition: HOME SELF-CARE Condition: Good Instructions (If sedation given, give patient instructions): Pelvic Pain in Women (ED) Additional Instructions: Please return to the Emergency Department if symptoms worsen or any other concerns. it is recommended that you follow-up outpatient with your hardness tester for further evaluation. Is patient prescribed a controlled substance at d/c from ED?: No Referrals: Davian Caicedo MD [Primary Care Provider] - 1-2 days Time of Disposition: 00:26
[2024-05-06] MEDS: MORPHINE SULFATE 4 MG/ML SYRINGE IVP STA (22:51)
[2024-05-06 23:21] LABS: Basophils % (A) 1 %; Eosinophils # (A) 0.2 k/uL (0-0.7); Eosinophils % (A) 2 %; HCT 39.7 % (34.0-46.0); HGB 12.8 gm/dL (11.4-16.0); Lymphocytes # (A) 1.9 k/uL (1.0-4.8); Lymphocytes % (A) 24 %; MCH 28.7 pg (25.0-35.0); MCHC 32.4 g/dL (31.0-37.0); MCV 88.6 fL (80.0-100.0); Mean Platelet Volume 7.6; Monocytes # (A) 0.4 k/uL (0-1.0); Monocytes % (A) 5 %; Neutrophils # (A) 5.4 k/uL (1.3-7.7); Neutrophils % (A) 67 %; Platelet Count 235 k/uL (150-450); RBC 4.48 m/uL (3.80-5.40); RDW 13.2 % (11.5-15.5); WBC 8.1 k/uL (3.8-10.6)
[2024-05-06 23:22] LABS: ALT 21 U/L (4-34); AST 25 U/L (14-36); African American GFR (CKD) >90 (>60 ml/min/1.73 sqM); Albumin 4.2 g/dL (3.5-5.0); Alkaline Phosphatase 72 U/L (38-126); Anion Gap 8 mmol/L; Blood Urea Nitrogen 16 mg/dL (7-17); Calcium 9.1 mg/dL (8.4-10.2); Carbon Dioxide 25 mmol/L (22-30); Chloride 106 mmol/L (98-107); Glucose 86 mg/dL (74-99); Lipase 71 U/L (23-300); Non-African American GFR(CKD) 81 (>60 ml/min/1.73 sqM); Potassium 4.1 mmol/L (3.5-5.1); Sodium 139 mmol/L (137-145); Total Bilirubin 0.3 mg/dL (0.2-1.3); Total Protein 6.9 g/dL (6.3-8.2)
[2024-05-06 23:33] LABS: INR 0.8 (<1.2); Partial Thromboplastin Time 26.8 sec (22.0-30.0); Prothrombin Time 9.5 sec (10.0-12.5)
[2024-05-06 23:38] LABS: Amorphous Sediment,Urine Rare /hpf; Appearance,Urine Clear (Clear); Bilirubin,Urine Negative (Negative); Blood,Urine Large (Negative); Color,Urine Light Yellow; Glucose,Urine (UA) Negative (Negative); HCG,Quantitative Serum <2.4 mIU/mL; Hyaline Casts,Urine 1 /lpf (0-2); Ketones,Urine Negative (Negative); Leukocyte Esterase,Urine Negative (Negative); Mucus,Urine Moderate /hpf; Nitrite,Urine Negative (Negative); Protein,Urine Negative (Negative); RBC,Urine 3 /hpf (0-5); Specific Gravity,Urine 1.029 (1.001-1.035); Squamous Epithelial Cell,Urine 5 /hpf (0-4); Urobilinogen,Urine <2.0 mg/dL (<2.0); WBC,Urine 4 /hpf (0-5)
[2024-05-06 23:41] VITALS: BP 119/80; PULSE 69
--- NOTE | 2024-05-07 00:19 | US ---
EXAM: US Pelvis Transabdominal and Transvaginal, Complete CLINICAL HISTORY: ITS.REASON US Reason: AUB, pain TECHNIQUE: Real-time complete transabdominal and transvaginal pelvic ultrasound with image documentation. Transvaginal imaging was used for better evaluation of the endometrium and adnexa. COMPARISON: No relevant prior studies available. FINDINGS: Uterus/cervix: Uterus measures 8.9 x 4.6 x 5.3 cm. Endometrial stripe measures 0.8 cm in thickness. Nabothian cysts within the cervix. No myometrial mass. Right ovary: Right ovary measures 2.6 x 2.3 x 1.3 cm. No suspicious lesion. Normal blood flow. Left ovary: Left ovary measures 3.3 x 2.9 x 3.1 cm. Simple cyst measuring 2.5 x 1.9 x 1.3 cm. Normal blood flow. Free fluid: No free fluid. IMPRESSION: No acute findings in the pelvis.
== END 2024-05-07 00:42 | disposition home or self-care (01) ==
LOC: EC 21:32
DX: N93.9 Abnormal uterine and vaginal bleeding, unspecified (principal); R10.2 Pelvic and perineal pain
CPT/HCPCS: 99284 ×2; 96374 ×2; 96361 ×2; 36415; 80053; 83690; 85025; 85610; 85730; 81001; 84702; 76830; J2270